=== PATIENT | female | born 2000 | race Caucasian/White ===

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

== ENCOUNTER 2021-01-14 09:00 | Outpatient (CLI) | payer BC, MEDICAID, SELFPAY ==
[2021-01-14] VITALS (7 sets, daily range): BP systolic 116–162; BP diastolic 58–94; PULSE 95–102; RESP 18; TEMP 36.8; BMI 44.6
[2021-01-14 09:34] LABS: Bilirubin Urine Neg (Negative); Blood Urine Neg (Negative); Glucose Urine UA Norm (Normal); Ketones Urine Negative (Negative); Leukocyte Esterase Urine Negative (Negative); Nitrate Urine Negative (Negative); Protein Urine Neg (Negative); Specific Gravity, Urine 1.025 (1.005-1.030); Urine Appearance Clear (CLEAR); Urine Color Yellow (Yellow); Urobilinogen Urine Norm (Negative); pH Urine 5 (5-7)
[2021-01-14 09:44] LABS: Add Urine Culture? No; Bacteria Urine 1+ /hpf; Mucus Urine 1+ /hpf; Squamous Epithelial Cell Urine 15-25 /hpf (0-5)
[2021-01-14 09:49] LABS: Urine Creatinine 141 mg/dL (28-217); Urine Protein Random 12 mg/dL
[2021-01-14 09:50] LABS: UPRO/UCREAT Ratio 0.09 mg/mg CR
[2021-01-14 10:13] LABS: Basophils % 0.1 %; Eosinophils # 0.1 10^3/uL (0.0-0.8); Eosinophils % 0.5 %; Hematocrit 37.3 % (37.0-47.0); Hemoglobin 11.8 g/dL (11.5-15.3); Lymphocytes # 2.6 10^3/uL (1.5-6.5); Lymphocytes % 18.4 %; Mean Corpuscular HGB Conc 31.6 g/dL (30.0-36.0); Mean Corpuscular Hemoglobin 25.7 pg (28.0-34.0); Mean Corpuscular Volume 81.1 fl (81-99); Mean Platelet Volume 11.3 fL (7.4-10.4); Monocytes # 0.8 10^3/uL (0.2-0.9); Monocytes % 5.7 %; Neutrophils # 10.37 10^3/uL (1.8-8.0); Neutrophils % 74.9 %; Nucleated Red Blood Cells % 0 %; Platelet Count 247 10^3/cmm (130-400); Red Cell Distribution Width 14.3 % (12.1-15.1); White Blood Count 13.9 10^3/uL (4.5-13.0)
[2021-01-14 10:47] LABS: Alanine Aminotransferase 23 U/L (0-33); Albumin Level 3.3 g/dL (3.5-5.2); Alkaline Phosphatase 133 IU/L (35-105); Anion Gap 16.7 (5-19); Aspartate Amino Transferase 16 U/L (0-32); Blood Urea Nitrogen 6 mg/dL (6-20); Calcium 8.8 mg/dL (8.5-10.5); Carbon Dioxide 20 mmol/L (22-29); Chloride 103 mmol/L (98-107); Glomerular Filtration Rate 205.6 mL/min (90-130); Glucose 77 mg/dL (65-115); Osmolality Calculated 278 mOsm/kg (285-295); Potassium 3.7 mmol/L (3.5-5.1); Sodium 136 mmol/L (136-145); Total Bilirubin 0.2 mg/dL (0.15-1.2); Total Protein 6.3 g/dL (6.6-8.7)
[2021-01-14] MEDS: betamethasone susp 6 mg/mL 5 mL 12 MG IM (10:59)
== END 2021-01-14 11:15 | disposition home or self-care (01) ==
LOC: OPOB 09:04 → OBGYN 09:05
PROVIDERS: PCP Nurse Practitioner Family; Visit Provider Family Medicine
DX: O16.9 Unspecified maternal hypertension, unspecified trimester (principal)
CPT/HCPCS: 36415; 80053; 81001; 82570; 84156; 84550; 85025; 96372; 99211; J0702

== ENCOUNTER 2021-01-15 10:47 | Outpatient (CLI) | payer BC, MEDICAID, SELFPAY ==
[2021-01-15 11:06] VITALS: BMI 45.1
[2021-01-15 11:16] VITALS: BP 135/88; PULSE 100; RESP 18; TEMP 36.6
[2021-01-15] MEDS: betamethasone susp 6 mg/mL 5 mL 12 MG IM (11:17)
== END 2021-01-15 11:20 | disposition home or self-care (01) ==
LOC: OPOB 10:54 → OBGYN 10:55
PROVIDERS: PCP Nurse Practitioner Family; Visit Provider Family Medicine
DX: O36.0191 Maternal care for anti-D [Rh] antibodies, unspecified trimester, fetus 1 (principal)
CPT/HCPCS: 96372; 99211; J0702

== ENCOUNTER 2021-01-23 23:50 | Outpatient (CLI) | payer BC, MEDICAID, SELFPAY ==
[2021-01-24 00:02] VITALS: BP 136/78; PULSE 121
[2021-01-24 00:20] VITALS: RESP 16
[2021-01-24 00:28] VITALS: BP 136/78; PULSE 121; RESP 16; BMI 45.4
== END 2021-01-24 00:38 | disposition home or self-care (01) ==
LOC: OPOB 23:59 → OBGYN 23:59
PROVIDERS: PCP Nurse Practitioner Family; Visit Provider Family Medicine
DX: O36.8190 Decreased fetal movements, unspecified trimester, not applicable or unspecified (principal); Z3A.00 Weeks of gestation of pregnancy not specified
CPT/HCPCS: 59025; 99211

== ENCOUNTER 2021-02-10 20:59 | Emergency (ER) | payer BC, MEDICAID, SELFPAY ==
[2021-02-10 21:09] VITALS: BP 156/91; PULSE 107; RESP 18; TEMP 36.7; O2SAT 98; BMI 43.9
--- NOTE | 2021-02-10 21:31 | W.ED.WOUNDLC ---
HPI - Wound/Laceration General: Chief Complaint: Wound/Laceration Stated Complaint: deep cut on left arm Time Seen by Provider: 02/10/21 21:16 History of Present Illness: HPI narrative: 20-year-old female reports that she was fixing her bed when they hit the lamp causing it to lose the fall and strike her arm breaking the bulb and cutting her arm. Patient reported cleaning her wound really well. Patient came in for treatment of the wound but refuses sutures. Patient states immunizations are up-to-date. Review of Systems General: Reports: 10 or more systems reviewed and unremarkable except in HPI and below Skin/Breast: Reports: other (Laceration left forearm) [facility] ED PFSH: Social History (Updated 04/05/19 @ 13:13 by Stormy Mac LPN) Smoking and tobacco status: never smoked Alcohol intake: never Female Reproductive History: Para: 0 Physical Exam Const: COMMON NORMALS: no acute distress and patient oriented x3 GENERAL APPEARANCE: cooperative HENMT: COMMON NORMALS: normocephalic HEAD & SCALP: normal to inspection and normocephalic Eye: GENERAL EYE: appearance normal, both eyes and all related structures Neck/C-Spine: COMMON NORMALS: full ROM Chest: COMMONS NORMALS: normal inspection of the chest Resp: COMMON NORMALS: normal respiratory effort EFFORT & INSPECTION: Yes able to speak in complete sentences Cardio: COMMON NORMALS: regular rate and regular rhythm RATE: regular rate RHYTHM: regular rhythm GI: COMMON NORMALS: non-tender Back/Pelvis: COMMON NORMALS: thoracic and lumbar spine normal to inspection Extremity: COMMON NORMALS: normal to inspection Neuro: COMMON NORMALS: patient oriented x3 and moves all extremities Psych: COMMON NORMALS: mental status grossly normal and cooperative Skin: NARRATIVE SKIN EXAM: Left forearm has a 2 cm laceration with gap of 1/2 cm. Procedures Laceration Laceration 1: Site: upper extremity Side (If applicable): left Size (cm): 2 Description: linear Depth: simple, single layer Pre-repair: wound explored and irrigated extensively Size (cm): other (Skin adhesive) Course Vital Signs: Vital signs: Vital Signs Temperature 98.1 F 02/10/21 21:09 Pulse Rate 107 H 02/10/21 21:09 Respiratory Rate 18 02/10/21 21:09 Blood Pressure 156/91 02/10/21 21:09 Pulse Oximetry 98 02/10/21 21:09 MDM - Wound/Laceration MDM Narrative: Medical decision making narrative: Patient comes in for treatment for a laceration to the left forearm. On exam no acute centimeter laceration left forearm. Differential diagnosis includes laceration, foreign body, fracture. No sign of fracture or foreign body is within the wound. I did recommend the patient have a suture to the wound for closure, but patient refused. I went ahead and cleaned the wound and applied 2 Steri-Strips to approximate the wound site and then covered with adhesive for further protection and support. Discussed post procedure care and need for follow-up or return to the ER. Patient reported understanding. Discharge Plan Discharge Patient Disposition: Home Clinical Impression: Laceration of left forearm Qualifiers: Encounter type: initial encounter Qualified Code(s): S51.812A - Laceration without foreign body of left forearm, initial encounter Condition: Stable Prescriptions: No Action 10-400 mg-mcg Capsule 1 cap PO DAILY RF: 0 Discharge Orders: Discharge ED (Routine); Ordered 02/10/21 Ordered By: Ryan Goss Referrals: Nikki Lyon FNP-C [Primary Care Provider] - Discharge Diet: Usual diet Discharge Activity: Increase activity as tolerated Patient Instructions: Skin Adhesive Care (ED) Activity Restrictions/Additional Instructions: Keep wound clean and dry especially for the next 48 hours. After that try not to submerge wound under water for long periods of time. Monitor for signs of infection such as increased redness, heat, and pain. Follow-up with primary care for further instruction. Return to the ER for new concerns. Coding Level of Care Code ED Orchid Superintendent for Isaiah Londono
[2021-02-10 21:47] VITALS: PULSE 82; RESP 18; O2SAT 97
== END 2021-02-10 21:48 | disposition home or self-care (01) ==
PROVIDERS: Emergency Provider Nurse Practitioner Family; PCP Nurse Practitioner Family
DX: S51.812A Laceration without foreign body of left forearm, initial encounter (principal); W25.XXXA Contact with sharp glass, initial encounter
CPT/HCPCS: 12001; 99282

== ENCOUNTER 2021-02-12 09:40 | Outpatient (CLI) | payer BC, MEDICAID, SELFPAY ==
[2021-02-12 09:40] VITALS: BMI 46.3
[2021-02-12 10:05] VITALS: BP 118/79; PULSE 107
[2021-02-12 10:20] VITALS: BP 115/70; PULSE 116
[2021-02-12 10:35] VITALS: BP 125/77; PULSE 114
[2021-02-12 10:50] VITALS: BP 123/77; PULSE 111
[2021-02-12 11:05] VITALS: BP 136/75; PULSE 105
[2021-02-12 11:30] VITALS: BP 136/75; PULSE 105
[2021-02-12 11:48] LABS: Add Urine Microscopic? NO; Charge for UA Resulting for Rev
[2021-02-12 11:52] LABS: Basophils % 0.3 %; Eosinophils # 0.1 10^3/uL (0.0-0.8); Eosinophils % 0.6 %; Hematocrit 38.8 % (37.0-47.0); Hemoglobin 11.9 g/dL (11.5-15.3); Lymphocytes # 1.7 10^3/uL (1.5-6.5); Lymphocytes % 14.2 %; Mean Corpuscular HGB Conc 30.7 g/dL (30.0-36.0); Mean Corpuscular Hemoglobin 24.5 pg (28.0-34.0); Mean Platelet Volume 11.6 fL (7.4-10.4); Monocytes # 0.7 10^3/uL (0.2-0.9); Monocytes % 5.6 %; Neutrophils # 9.14 10^3/uL (1.8-8.0); Neutrophils % 78.4 %; Nucleated Red Blood Cells % 0 %; Platelet Count 292 10^3/cmm (130-400); Red Blood Count 4.85 10^6/uL (4.1-5.3); Red Cell Distribution Width 14.2 % (12.1-15.1); White Blood Count 11.7 10^3/uL (4.5-13.0)
[2021-02-12 12:05] LABS: Bilirubin Urine Neg (Negative); Blood Urine Neg (Negative); Glucose Urine UA Norm (Normal); Ketones Urine Negative (Negative); Nitrate Urine Negative (Negative); Protein Urine Neg (Negative); Urine Appearance Clear (CLEAR); Urine Color Straw (Yellow); pH Urine 5 (5-7)
[2021-02-12 12:06] LABS: Leukocyte Esterase Urine Negative (Negative); Urobilinogen Urine Norm (Negative)
[2021-02-12 12:36] LABS: Alanine Aminotransferase 13 U/L (0-33); Albumin Level 2.7 g/dL (3.5-5.2); Alkaline Phosphatase 169 IU/L (35-105); Anion Gap 12.9 (5-19); Aspartate Amino Transferase 11 U/L (0-32); Blood Urea Nitrogen 6 mg/dL (6-20); Carbon Dioxide 22 mmol/L (22-29); Chloride 104 mmol/L (98-107); Globulin 3.2 g/dL (1.3-4.6); Glomerular Filtration Rate 205.6 mL/min (90-130); Glucose 92 mg/dL (65-115); Osmolality Calculated 277 mOsm/kg (285-295); Potassium 3.9 mmol/L (3.5-5.1); Sodium 135 mmol/L (136-145); Total Bilirubin 0.2 mg/dL (0.15-1.2); Total Protein 5.9 g/dL (6.6-8.7); Uric Acid 3.3 mg/dL (2.4-5.7)
[2021-02-12 12:43] LABS: Urine Creatinine 73 mg/dL (28-217); Urine Protein Random 8 mg/dL
[2021-02-12 12:44] LABS: UPRO/UCREAT Ratio 0.11 mg/mg CR
== END 2021-02-12 11:30 | disposition home or self-care (01) ==
LOC: OPOB 09:50 → OBGYN 09:51
PROVIDERS: PCP Nurse Practitioner Family; Visit Provider Family Medicine
DX: R51.9 Headache, unspecified (principal); M54.9 Dorsalgia, unspecified; O99.891 Other specified diseases and conditions complicating pregnancy
CPT/HCPCS: 36415; 59025; 80053; 81003; 82570; 84156; 84550; 85025; 99211

== ENCOUNTER 2021-02-16 11:45 | Outpatient (CLI) | payer BC, MEDICAID, SELFPAY ==
[2021-02-16 11:45] VITALS: BMI 41.8
[2021-02-16 12:01] VITALS: BP 141/70; PULSE 112
[2021-02-16 12:11] VITALS: BP 139/67; PULSE 117
[2021-02-16 12:21] VITALS: BP 128/65; PULSE 122
[2021-02-16 12:31] VITALS: BP 116/66; PULSE 115
[2021-02-16 12:41] VITALS: BP 123/64; PULSE 113
[2021-02-16 12:51] VITALS: BP 123/68; PULSE 116
== END 2021-02-16 12:53 | disposition home or self-care (01) ==
LOC: OPOB 11:50 → OBGYN 11:51
PROVIDERS: PCP Nurse Practitioner Family; Visit Provider Family Medicine
DX: O16.9 Unspecified maternal hypertension, unspecified trimester (principal); Z3A.00 Weeks of gestation of pregnancy not specified
CPT/HCPCS: 59025; 99211

== ENCOUNTER 2021-02-19 16:23 | Outpatient (CLI) | payer BC, MEDICAID, SELFPAY ==
[2021-02-19 16:32] VITALS: BP 145/89; PULSE 101
[2021-02-19 16:40] VITALS: BMI 47.0
[2021-02-19 16:47] VITALS: BP 133/83; PULSE 110
[2021-02-19 17:01] VITALS: BP 136/83; PULSE 108
== END 2021-02-19 17:12 | disposition home or self-care (01) ==
LOC: OPOB 16:28 → OBGYN 16:29
PROVIDERS: PCP Nurse Practitioner Family; Visit Provider Family Medicine
DX: O16.9 Unspecified maternal hypertension, unspecified trimester (principal); Z3A.00 Weeks of gestation of pregnancy not specified
CPT/HCPCS: 59025

== ENCOUNTER 2021-02-23 15:54 | Outpatient (CLI) | payer BC, MEDICAID, SELFPAY ==
[2021-02-23 16:00] VITALS: BMI 46.8
[2021-02-23 16:15] VITALS: BP 129/71; PULSE 94; RESP 16; O2SAT 99
[2021-02-23 16:19] VITALS: TEMP 36.1
[2021-02-23 16:35] VITALS: BP 134/93; PULSE 99; RESP 16; O2SAT 99
--- NOTE | 2021-02-23 16:57 | PC.NURSE ---
Patient reports she is taking a blood pressure pill that starts with an N. Patient advised to bring bottle to next NST appt.
== END 2021-02-23 16:50 | disposition home or self-care (01) ==
LOC: OPOB 16:02 → OBGYN 16:09
PROVIDERS: PCP Nurse Practitioner Family; Visit Provider Family Medicine
DX: O16.9 Unspecified maternal hypertension, unspecified trimester (principal); Z3A.00 Weeks of gestation of pregnancy not specified
CPT/HCPCS: 59025

== ENCOUNTER 2021-02-26 16:30 | Outpatient (CLI) | payer BC, MEDICAID, SELFPAY ==
[2021-02-26 16:40] VITALS: BP 145/71; PULSE 101; TEMP 36.3
[2021-02-26 16:45] VITALS: RESP 18; BMI 46.8
[2021-02-26 16:55] VITALS: BP 136/64; PULSE 100
== END 2021-02-26 17:05 | disposition home or self-care (01) ==
LOC: OPOB 16:31 → OBGYN 16:34
PROVIDERS: PCP Nurse Practitioner Family; Visit Provider Family Medicine
DX: O16.9 Unspecified maternal hypertension, unspecified trimester (principal); Z3A.00 Weeks of gestation of pregnancy not specified
CPT/HCPCS: 59025; 99211

== ENCOUNTER 2021-03-02 12:10 | Outpatient (CLI) | payer BC, MEDICAID, SELFPAY ==
[2021-03-02 12:15] VITALS: BMI 47.3
[2021-03-02 12:21] VITALS: BP 113/56; PULSE 122; TEMP 35.8
[2021-03-02 12:25] VITALS: RESP 18
[2021-03-02 12:42] VITALS: BP 122/56; PULSE 117
[2021-03-02 13:01] VITALS: BP 131/66; PULSE 115
[2021-03-02 13:21] VITALS: BP 118/69; PULSE 116
== END 2021-03-02 13:30 | disposition home or self-care (01) ==
LOC: OPOB 12:12 → OBGYN 12:14
PROVIDERS: PCP Nurse Practitioner Family; Visit Provider Family Medicine
DX: O16.9 Unspecified maternal hypertension, unspecified trimester (principal); Z3A.00 Weeks of gestation of pregnancy not specified
CPT/HCPCS: 59025; 99211

== ENCOUNTER 2021-03-04 11:02 | Outpatient (CLI) | payer BC, MEDICAID, SELFPAY ==
[2021-03-04 11:10] VITALS: BMI 47.7
[2021-03-04 11:24] VITALS: BP 123/72; PULSE 56
[2021-03-04 11:33] VITALS: RESP 18; TEMP 36.3
[2021-03-04 11:39] LABS: Nitrazine Paper, PH Negative
[2021-03-04 11:43] LABS: Actim Prom Negative
[2021-03-04 12:05] VITALS: BP 123/72; PULSE 56
== END 2021-03-04 12:05 | disposition home or self-care (01) ==
LOC: OPOB 11:04 → OBGYN 11:14
PROVIDERS: Family Medicine; PCP Nurse Practitioner Family; Visit Provider Family Medicine
DX: O26.899 Other specified pregnancy related conditions, unspecified trimester (principal); Z3A.00 Weeks of gestation of pregnancy not specified; R10.2 Pelvic and perineal pain; N89.8 Other specified noninflammatory disorders of vagina
CPT/HCPCS: 59025; 83986; 84112; 99211

== ENCOUNTER 2021-03-09 07:20 | Outpatient (CLI) | payer BC, MEDICAID, SELFPAY ==
[2021-03-05 13:47] VITALS: RESP 16; TEMP 36.5
[2021-03-09 07:30] VITALS: BP 149/65; PULSE 112
[2021-03-09 07:46] VITALS: BP 143/90; PULSE 95
[2021-03-09 08:10] VITALS: BP 143/90; PULSE 95
== END 2021-03-09 08:12 | disposition home or self-care (01) ==
LOC: OPOB 07:24 → OBGYN 07:26
PROVIDERS: PCP Nurse Practitioner Family; Visit Provider Family Medicine
DX: O26.899 Other specified pregnancy related conditions, unspecified trimester (principal); Z3A.00 Weeks of gestation of pregnancy not specified
CPT/HCPCS: 59025; 99211

== ENCOUNTER 2021-03-12 18:20 | Outpatient (CLI) | payer BC, MEDICAID, SELFPAY ==
[2021-03-12] VITALS (7 sets, daily range): BP systolic 127–140; BP diastolic 62–82; PULSE 85–98; RESP 18; BMI 48.5
== END 2021-03-12 19:55 | disposition home or self-care (01) ==
LOC: OPOB 18:23 → OBGYN 18:24
PROVIDERS: PCP Nurse Practitioner Family; Visit Provider Family Medicine
DX: O16.9 Unspecified maternal hypertension, unspecified trimester (principal); Z3A.00 Weeks of gestation of pregnancy not specified
CPT/HCPCS: 59025; 99211

== ENCOUNTER 2021-03-15 16:41 | Outpatient (CLI) | payer BC, MEDICAID, SELFPAY ==
[2021-03-15 17:02] VITALS: BP 142/98; PULSE 101
[2021-03-15 17:17] VITALS: BP 130/75; PULSE 105
[2021-03-15 17:22] VITALS: BMI 48.4
[2021-03-15 17:32] VITALS: BP 120/69; PULSE 115
== END 2021-03-15 17:42 | disposition home or self-care (01) ==
LOC: OPOB 16:42 → OBGYN 16:42
PROVIDERS: PCP Nurse Practitioner Family; Visit Provider Family Medicine
DX: O16.9 Unspecified maternal hypertension, unspecified trimester (principal); Z3A.00 Weeks of gestation of pregnancy not specified; N89.8 Other specified noninflammatory disorders of vagina
CPT/HCPCS: 59025; 83986; 99211

== ENCOUNTER 2021-03-17 11:00 | Outpatient (CLI) | payer BC, MEDICAID, SELFPAY ==
[2021-03-17] VITALS (13 sets, daily range): BP systolic 117–159; BP diastolic 77–96; PULSE 105–131; RESP 16; BMI 48.9
[2021-03-17 12:27] LABS: Basophils % 0.2 %; Eosinophils # 0.1 10^3/uL (0.0-0.8); Eosinophils % 0.7 %; Hematocrit 36.9 % (37.0-47.0); Hemoglobin 11.8 g/dL (11.5-15.3); Lymphocytes # 1.8 10^3/uL (1.5-6.5); Lymphocytes % 14.5 %; Mean Corpuscular Hemoglobin 24.4 pg (28.0-34.0); Mean Corpuscular Volume 76.2 fl (81-99); Mean Platelet Volume 11.9 fL (7.4-10.4); Monocytes # 0.6 10^3/uL (0.2-0.9); Monocytes % 4.5 %; Neutrophils # 9.73 10^3/uL (1.8-8.0); Neutrophils % 79.4 %; Nucleated Red Blood Cells % 0 %; Platelet Count 270 10^3/cmm (130-400); Red Blood Count 4.84 10^6/uL (4.1-5.3); Red Cell Distribution Width 15.4 % (12.1-15.1); White Blood Count 12.2 10^3/uL (4.5-13.0)
[2021-03-17 12:42] LABS: Alanine Aminotransferase 12 U/L (0-33); Albumin Level 2.8 g/dL (3.5-5.2); Alkaline Phosphatase 178 IU/L (35-105); Aspartate Amino Transferase 12 U/L (0-32); Blood Urea Nitrogen 6 mg/dL (6-20); Calcium 9.2 mg/dL (8.5-10.5); Carbon Dioxide 17 mmol/L (22-29); Chloride 105 mmol/L (98-107); Glomerular Filtration Rate 158.9 mL/min (90-130); Glucose 105 mg/dL (65-115); Osmolality Calculated 280 mOsm/kg (285-295); Sodium 136 mmol/L (136-145); Total Bilirubin 0.2 mg/dL (0.15-1.2); Total Protein 5.8 g/dL (6.6-8.7)
[2021-03-17 13:48] LABS: Urine Creatinine 284 mg/dL (28-217)
[2021-03-17 13:49] LABS: UPRO/UCREAT Ratio 0.19 mg/mg CR; Urine Protein Random 54 mg/dL
[2021-03-17 14:29] LABS: Uric Acid 4.9 mg/dL (2.4-5.7)
[2021-03-17] MEDS: NIFEdipine ER (24 hr) 30 mg Tablet PO (14:30)
[2021-03-17 14:59] LABS: Add Urine Culture? No; Amorphous Sediment Urine 2+ /hpf; Bacteria Urine 4+ /hpf; Bilirubin Urine 1+ (Negative); Blood Urine Neg (Negative); Calcium Oxalate Crystals Urine 15-25 /hpf; Glucose Urine UA Norm (Normal); Ketones Urine Negative (Negative); Leukocyte Esterase Urine Negative (Negative); Nitrate Urine Negative (Negative); Protein Urine Trace (Negative); RBC Urine 0-4 /hpf (0-2); Squamous Epithelial Cell Urine 55-80 /hpf (0-5); Urine Appearance Cloudy (CLEAR); Urine Color Yellow (Yellow); Urobilinogen Urine Norm (Negative); pH Urine 5 (5-7)
== END 2021-03-17 14:35 | disposition home or self-care (01) ==
LOC: OPOB 11:07 → OBGYN 11:08
PROVIDERS: PCP Nurse Practitioner Family; Visit Provider Family Medicine
DX: O16.9 Unspecified maternal hypertension, unspecified trimester (principal); Z3A.00 Weeks of gestation of pregnancy not specified
CPT/HCPCS: 36415; 59025; 80053; 81001; 82570; 84156; 84550; 85025; 99211

== ENCOUNTER 2021-03-19 13:12 | Outpatient (CLI) | payer BC, MEDICAID, SELFPAY ==
[2021-03-19 13:21] VITALS: BP 145/86; PULSE 131
[2021-03-19 13:22] VITALS: TEMP 36.3
[2021-03-19 13:24] VITALS: BMI 48.9
[2021-03-19 13:38] VITALS: BP 159/93; PULSE 122
[2021-03-19 13:45] VITALS: PULSE 116
== END 2021-03-19 13:55 | disposition home or self-care (01) ==
LOC: OPOB 13:13 → OBGYN 13:13
PROVIDERS: PCP Nurse Practitioner Family; Visit Provider Family Medicine
DX: O24.419 Gestational diabetes mellitus in pregnancy, unspecified control (principal); Z3A.00 Weeks of gestation of pregnancy not specified
CPT/HCPCS: 59025

== ENCOUNTER 2021-03-23 07:10 | Outpatient (CLI) | payer BC, MEDICAID, SELFPAY ==
[2021-03-23 07:26] VITALS: BP 135/66; PULSE 110; TEMP 36.1
[2021-03-23 07:27] VITALS: BMI 49.2
[2021-03-23 07:44] VITALS: BP 160/98; PULSE 139
[2021-03-23 07:59] VITALS: BP 158/78; PULSE 130
[2021-03-23 08:53] VITALS: BMI 49.2
== END 2021-03-23 08:53 | disposition home or self-care (01) ==
LOC: OPOB 07:18 → OBGYN 07:20
PROVIDERS: PCP Nurse Practitioner Family; Visit Provider Family Medicine
DX: O16.9 Unspecified maternal hypertension, unspecified trimester (principal); Z3A.00 Weeks of gestation of pregnancy not specified
CPT/HCPCS: 59025; 99211

== ENCOUNTER 2021-03-24 04:54 | Inpatient (IN) | payer BC, MEDICAID, SELFPAY ==
[2021-03-23] VITALS (17 sets, daily range): BP systolic 121–153; BP diastolic 57–87; PULSE 86–116; TEMP 36.6; O2SAT 98; BMI 48.7
[2021-03-23 22:31] LABS: Basophils % 0.2 %; Eosinophils % 0.3 %; Hematocrit 39.4 % (37.0-47.0); Hemoglobin 12.1 g/dL (11.5-15.3); Lymphocytes % 15.9 %; Mean Corpuscular HGB Conc 30.7 g/dL (30.0-36.0); Mean Platelet Volume 11.7 fL (7.4-10.4); Monocytes # 0.6 10^3/uL (0.2-0.9); Monocytes % 4.9 %; Neutrophils # 10.07 10^3/uL (1.8-8.0); Neutrophils % 78.4 %; Nucleated Red Blood Cells % 0 %; Platelet Count 294 10^3/cmm (130-400); Red Blood Count 5.05 10^6/uL (4.1-5.3); White Blood Count 12.9 10^3/uL (4.5-13.0)
[2021-03-23 22:41] LABS: Add Urine Culture? No; Add Urine Microscopic? YES; Bacteria Urine 3+ /hpf; Bilirubin Urine Neg (Negative); Blood Urine Neg (Negative); Glucose Urine UA Norm (Normal); Ketones Urine Negative (Negative); Leukocyte Esterase Urine Negative (Negative); Mucus Urine 1+ /hpf; Nitrate Urine Negative (Negative); Protein Urine Trace (Negative); RBC Urine 0-4 /hpf (0-2); Urine Appearance Clear (CLEAR); Urine Color Yellow (Yellow); Urobilinogen Urine Norm (Negative); pH Urine 5 (5-7)
[2021-03-23 22:58] LABS: UPRO/UCREAT Ratio 0.18 mg/mg CR; Urine Creatinine 250 mg/dL (28-217); Urine Protein Random 44 mg/dL
[2021-03-23 23:10] LABS: Alanine Aminotransferase < 5 U/L (0-33); Albumin Level 2.8 g/dL (3.5-5.2); Alkaline Phosphatase 194 IU/L (35-105); Anion Gap 18.1 (5-19); Aspartate Amino Transferase 13 U/L (0-32); Blood Urea Nitrogen 9 mg/dL (6-20); Calcium 7.9 mg/dL (8.5-10.5); Carbon Dioxide 16 mmol/L (22-29); Chloride 106 mmol/L (98-107); Globulin 3.1 g/dL (1.3-4.6); Glomerular Filtration Rate 107.8 mL/min (90-130); Glucose 108 mg/dL (65-115); Osmolality Calculated 281 mOsm/kg (285-295); Potassium 4.1 mmol/L (3.5-5.1); Sodium 136 mmol/L (136-145); Total Bilirubin 0.2 mg/dL (0.15-1.2); Total Protein 5.9 g/dL (6.6-8.7); Uric Acid 6.3 mg/dL (2.4-5.7)
[2021-03-24] VITALS (46 sets, daily range): BP systolic 110–153; BP diastolic 55–88; PULSE 81–112; RESP 16
[2021-03-24] MEDS: miSOPROStol 100 mcg tablet 25 MCG VAGINAL ×4 (00:36→15:48)
[2021-03-24] MEDS: dextrose 5%-lactated ringers 1,000 ML 125 ML IV ×2 (06:35→22:31)
--- NOTE | 2021-03-24 18:22 | PM.OPHPUD ---
Labor & Delivery H&P Update Date of Procedure: March 24, 2021 Date H&P Performed: 03/24/21 H&P update information: I have reviewed H&P completed within last 30 days Admission Diagnosis: Other information: This is a 20-year-old at 37 weeks 1 day gestation who was admitted last evening for induction secondary to severe -induced hypertension. I suspect the patient has underlying chronic hypertension as she had at least one borderline blood pressure prior to 20 weeks gestation. Her blood pressure started increasing around 28 weeks gestation. She did a 24-hour urine and PIH labs which ruled out preeclampsia. At first her BPs were mildly elevated and just monitored. When they became more severe, 150/110, she was started on Procardia XL 30mg. At that time of course PIH labs were repeated. The patient received monthly growth and fluid ultrasounds. Her most recent u/s at 33 w showed DIONY 21, EFW 62.9%. At 32 weeks gestation she began twice weekly NSTs. Of note, the pt had a random severe BP 180/100 on 01/14 that resolved spontaneously with rest. She had reported to L&D for en elevated at-home BP of 149/120. She received a course of BMZ x 2 at that time. Urine pro/Cr ratio was 0.9. At 36 weeks gestation she had a blood pressure of 180/120 in clinic and was sent to Labor and delivery for repeat BP and PIH labs. Pt had been monitoring her BP at home and when asked what they were running at home she said the same , yet she had not notified us. Pro/Cr ratio was 0.18. At the hospital her BP was not nearly as elevated but decision was made to increase the Procardia and place her on bedrest. Obviously, with activity her BP spikes much higher. At no time did she have scotomata or significant WETZEL. At 37 weeks 0 days gestation the patient was receiving routine NST and it was noted that her blood pressures were right at the severe range (despite 90mg of procardia and bedrest) 160/58, several 159 systolics, so decision was made to induce. Related Problem List Diagnoses (1) induced hypertension, antepartum: severe. on BP medication. early term now so will induce. (2) with 37 weeks completed gestation:
--- NOTE | 2021-03-24 18:39 | PM.OBGYPN ---
INSULATION ENGINEMAN Subjective Labor: Station: -3 Amniotic Membrane Status: Intact Monitor Mode: External Contraction Pattern: Absent Status: Category I Vitals/I&O/Wt Last Vital Signs Temp 97.8 F 03/23/21 19:35 Pulse 87 03/24/21 17:48 BP 133/78 03/24/21 17:48 Pulse Ox 98 03/23/21 23:35 Weight last 48 hrs Weight 128.82 kg Physical Exam Narrative: EXAM NARRATIVE: Pt seen at 1245. Resting comfortably in bed no acute distress, abdomen is nontender. Data : 03/23/21 22:15 03/23/21 22:43 A&P Assessment and plan (1) with 37 weeks completed gestation: The patients cervix was not favorable for induction. She has now had 3 doses of Cytotec and her cervix was 1 cm but still very firm and thick. She will receive a fourth dose of Cytotec. heart tones have been reassuring, reactive and category 1. Status: Acute (2) induced hypertension, antepartum: Surprisingly the patient's blood pressures have been pretty good since admission. Earlier yesterday she had severely elevated blood pressure on Procardia 90 mg and bedrest. We have hypertensive protocol in place but she has not required any medication yet. Status: Acute Attestations Medical Necessity Statement*: Induction and expectant management due to severe -induced hypertension Coding Level of Care Code Acute Adjunct Communications Faculty Member for g Fwd Diagnoses with 37 weeks completed gestation Z3A.37 induced hypertension, antepartum O13.9
[2021-03-24] MEDS: oxytocin 30 UNIT/500 ML BAG IV (22:13)
[2021-03-25] VITALS (128 sets, daily range): BP systolic 107–181; BP diastolic 51–132; PULSE 71–151; RESP 16–18; TEMP 36.6–37; O2SAT 81–100
[2021-03-25] MEDS: dextrose 5%-lactated ringers 1,000 ML 108 ML IV (04:38)
[2021-03-25] MEDS: acetaminophen 325 mg Tablet 650 MG PO (07:12)
[2021-03-25] MEDS: lactated ringers 1,000 ML 999 ML IV ×2 (09:00→10:07)
[2021-03-25] MEDS: fentaNYL 50 mcg/mL INJ 2mL IVP (09:04)
--- NOTE | 2021-03-25 10:24 | P.ANESASSM_ITS ---
Pre-Anesthetic Assessment Pre-Anesthetic Assessment: Height/Weight: Height 1.63 m Weight 128.82 kg Temp Pulse Resp BP Pulse Ox 97.8 F 102 H 18 112/56 98 03/23/21 19:35 03/25/21 10:22 03/25/21 09:04 03/25/21 10:22 03/25/21 10:17 Was Beta Mishel taken within 24 hours: N/A Was Clonidine taken within 24 hours: N/A Social: Social History: No alcohol and No tobacco Exam: Pre-Anes Outpt Exam: alert, oriented x 3, clear to auscultation bilaterally and regular rate & rhythm Airway: Submandibular: WNL Cervical ROM: WNL MP: 2 Dentition: Full History/ROS: No significant history except as noted Metabolic: Metabolic: Morbid obesity Anesthetic Plan: ASA status: 2 Anesthesia: Regional (specify below) (Labor epidural) Risk of > 500 ml blood loss (7ml/kg in children): No Medications/Allergies Current Medications: Current Medications Generic Name Dose Route Start Last Admin Trade Name Freq PRN Reason Stop Dose Admin Acetaminophen 650 mg 03/23/21 23:09 03/25/21 07:12 Acetaminophen 32 5 Mg Tablet PO 650 mg Q6H PRN Administration MILD TO MODERATE PAIN Fentanyl 25 - 100 mcg 03/24/21 21:17 03/25/21 09:04 Fentanyl 50 Mcg/ Ml Inj 2ml IVP 25 mcg Q1H PRN Administration SEVERE PAIN Dextrose/Lactated Ringer's 1,000 mls @ 125 m ls/hr 03/23/21 23:15 03/25/21 09:12 Dextrose 5%-Lact ated Ringers IV 0 mls/hr .Q8H ROXANN Infusion Dextrose/Lactated Ringer's 1,000 mls @ 125 m ls/hr 03/23/21 23:09 03/25/21 06:01 Dextrose 5%-Lact ated Ringers IV 105 mls/hr .Q8H PRN Infusion per label comment s Oxytocin 30 unit in 500 ml s @ 1 mls/hr 03/24/21 21:15 03/25/21 06:01 Pitocin IV 20 milliunit/min .Q24H ROXANN 20 mls/hr Titration Protocol 1 MILLIUNIT/MIN Ropivacaine 200 mg in 100 mls @ 13 mls/hr 03/25/21 09:15 03/25/21 10:05 Naropin Premix EPIDURAL 13 mls/hr .Q7H42M ROXANN Administration Lactated Ringer's 1,000 mls @ 999 m ls/hr 03/25/21 09:13 03/25/21 10:07 Lactated Ringers IV 999 mls/hr .Q1H1M PRN Administration See label comment s PFSH Anesthesia PFSH: Social History (Updated 04/05/19 @ 13:13 by Stormy Mac LPN) Smoking and tobacco status: never smoked Alcohol intake: never Female Reproductive History: Date of last menstrual period: 06/05/20 : 1 Para: 0 Data Anesthesia CBC & Chem 7: 03/23/21 22:15 03/23/21 22:43 Other Labs: Laboratory Results - last 48 hr 03/23/21 03/23/21 03/23/21 19:00 19:00 22:15 WBC 12.9 RBC 5.05 Hgb 12.1 Hct 39.4 MCV 78.0 L MCH 24.0 L MCHC 30.7 RDW 16.0 H Plt Count 294 MPV 11.7 H Neut % (Auto) 78.4 Lymph % (Auto) 15.9 [place] % (Auto) 4.9 Eos % (Auto) 0.3 Baso % (Auto) 0.2 Neut # (Auto) 10.07 H Lymph # (Auto) 2.0 [place] # (Auto) 0.6 Eos # (Auto) 0.0 Baso # (Auto) 0.0 Nucleated RBC % (auto) 0 Nucleated RBCs # 0.0 Sodium Potassium Chloride Carbon Dioxide Anion Gap BUN Creatinine GFR Calculation Glucose Calculated Osmolality Uric Acid Calcium Total Bilirubin AST ALT Alkaline Phosphatase Total Protein Albumin Globulin Urine Color Yellow Urine Appearance Clear Urine pH 5 Ur Specific [place] 1.030 Urine Protein Trace Urine Glucose (UA) Norm Urine Ketones Negative Urine Blood Neg Urine Nitrate Negative Urine Bilirubin Neg Urine Urobilinogen Norm Ur Leukocyte Esterase Negative Urine RBC 0-4 H Urine WBC 5-10 H Ur Squamous Epith Cells 10-15 H Amorphous Sediment Not Reportable Urine Bacteria 3+ H Urine Mucus 1+ U Random Total Protein 44 Urine Creatinine 250 H Protein/Creatinin Ratio 0.18 03/23/21 03/23/21 22:15 22:43 WBC RBC Hgb Hct MCV MCH MCHC RDW Plt Count MPV Neut % (Auto) Lymph % (Auto) [place] % (Auto) Eos % (Auto) Baso % (Auto) Neut # (Auto) Lymph # (Auto) [place] # (Auto) Eos # (Auto) Baso # (Auto) Nucleated RBC % (auto) Nucleated RBCs # Sodium Cancelled 136 Potassium Cancelled 4.1 Chloride Cancelled 106 Carbon Dioxide Cancelled 16 L Anion Gap Cancelled 18.1 BUN Cancelled 9 Creatinine Cancelled 0.7 GFR Calculation Cancelled 107.8 Glucose Cancelled 108 Calculated Osmolality Cancelled 281 L Uric Acid Cancelled 6.3 H Calcium Cancelled 7.9 L Total Bilirubin Cancelled 0.2 AST Cancelled 13 ALT Cancelled < 5 Alkaline Phosphatase Cancelled 194 H Total Protein Cancelled 5.9 L Albumin Cancelled 2.8 L Globulin Cancelled 3.1 Urine Color Urine Appearance Urine pH Ur Specific [place] Urine Protein Urine Glucose (UA) Urine Ketones Urine Blood Urine Nitrate Urine Bilirubin Urine Urobilinogen Ur Leukocyte Esterase Urine RBC Urine WBC Ur Squamous Epith Cells Amorphous Sediment Urine Bacteria Urine Mucus U Random Total Protein Urine Creatinine Protein/Creatinin Ratio Cardiac Studies: No Data to Display
--- NOTE | 2021-03-25 10:28 | ANES.PROC ---
Anesthesia Procedures Procedure/Date: 03/25/21 Epidural: Time Out Performed: Yes Consents Signed: Procedure Consent Consent: requested by attending/covering physician, from patient, risks and benefits reviewed and patient agrees to proceed Lumbar Level: L3-L4 Epidural position: sitting Epidural procedure: sterile prep of area, 1% lidocaine to numb the area, 18 g needle, neg for paresthesia, test dose given, 1.5% xylocaine 1:200k epi, placed PCEA, no systemic response, sterile dressing applied and 0.2% Ropiavacaine @ mls/hr (13) Additional Comments: Had to pass epidural needle twice to complete, using Arrow kit initially catheter would not pass b/c tiny portion of tip of needle burred up and would not allow catheter to pass; second pass with Mas kit passed easily but had positive test dose until catheter withdrawn to 10cm at which test dose negative--KALYANI at 7cm.
--- NOTE | 2021-03-25 12:05 | ANES.PROC ---
Anesthesia Procedures Procedure/Date: 03/25/21 Epidural: Time Out Performed: Yes Consents Signed: Procedure Consent Consent: requested by attending/covering physician, from patient, risks and benefits reviewed and patient agrees to proceed Lumbar Level: L3-L4 Epidural position: sitting Epidural procedure: sterile prep of area, 1% lidocaine to numb the area, 18 g needle, neg for paresthesia, test dose given, 1.5% xylocaine 1:200k epi, placed PCEA, no systemic response, sterile dressing applied and 0.2% Ropiavacaine @ mls/hr (13) Additional Comments: Epidural replaced, previous epidural likely migrated out--it was only 3cm past KALYANI.
--- NOTE | 2021-03-25 13:44 | P.PCNOB_ITS ---
Delivery Note: Date of delivery: March 25, 2021 Delivery: This is a 20-year-old G1 now P1 at 37 weeks 2 days gestation who was admitted for induction secondary to severe -induced hypertension. The patient's cervix was not favorable and she received Cytotec doses x4. Her cervix was only 1cm and 50% effaced after those doses. She was then started on Pitocin. Once her Pitocin was titrated up her active labor progressed rather quickly. She had spontaneous rupture of membranes with clear fluid. scalp electrode was placed to better monitor the FHT. She received an epidural for pain management and the first 1 became dislodged so she required a second epidural. Shortly thereafter she was complete and +3. She only had to push for about 3 contractions and had a normal spontaneous vaginal delivery of a viable female weight 2845 g, 6 pounds 4 ounces over an intact perineum. The was suctioned at delivery and placed on the mother's chest. Apgars 9 and 9 . the cord was clamped and cut. The placenta was delivered grossly intact and normal to inspection. There was a right vaginal first-degree laceration that was sutured using 3-0 chromic. Mother and were doing well after delivery. Rupture of membranes was approximately 4-1/2 hours prior to delivery. Mother was GBS negative. Overall her active labor was approximately 6 hours long. A&P Assessment and plan (1) with 37 weeks completed gestation: Routine care Status: Acute (2) induced hypertension, antepartum: Continue to monitor closely and assess the need for treatment. Status: Acute Coding Level of Care Code Acute Counselor Dormitory for Chg Fwd Diagnoses with 37 weeks completed gestation Z3A.37 induced hypertension, antepartum O13.9
[2021-03-25] MEDS: oxytocin 30 UNIT/500 ML BAG 600 UNIT IV (13:59)
[2021-03-25] MEDS: benzocaine-menthol 78 gm Canister 1 SPRAY TOPICAL (16:07)
[2021-03-25] MEDS: ibuprofen 800 mg tablet PO ×2 (16:07→21:20)
[2021-03-25] MEDS: lanolin oint 7 gm 1 APPLIC TOPICAL (16:07)
[2021-03-25] MEDS: docusate sodium 100 mg Capsule PO (21:21)
[2021-03-26 02:37] LABS: Hematocrit 32.3 % (37.0-47.0); Mean Corpuscular Hemoglobin 24.1 pg (28.0-34.0); Mean Corpuscular Volume 77.8 fl (81-99); Mean Platelet Volume 12.1 fL (7.4-10.4); Platelet Count 234 10^3/cmm (130-400); Red Blood Count 4.15 10^6/uL (4.1-5.3); Red Cell Distribution Width 16.3 % (12.1-15.1); White Blood Count 12.2 10^3/uL (4.5-13.0)
[2021-03-26 05:05] VITALS: BP 117/60; PULSE 81
[2021-03-26 07:28] VITALS: BP 136/83; PULSE 86
[2021-03-26] MEDS: prenatal vitamin Capsule 1 CAP PO (10:09)
[2021-03-26] MEDS: docusate sodium 100 mg Capsule PO (10:09)
[2021-03-26] MEDS: ibuprofen 800 mg tablet PO (10:09)
--- NOTE | 2021-03-26 12:43 | P.DS_ITS ---
Discharge Providers CHARGE MASTER ANALYST Date of Admission: 03/24/21 04:54 Date of Discharge: 03/26/21 Attending Provider at Admission: Trudy Shay MD Attending Provider at Discharge: Trudy Shay MD Primary Care Provider: TAMARA Saleem Diagnoses at Discharge Discharge Diagnosis (1) induced hypertension, antepartum: Status: Acute (2) with 37 weeks completed gestation: Status: Acute Reason for Visit Reason for Visit: Induction Hospital Course Hospital Course This is a 20-year-old G1 now P1 who was admitted for induction at 37 weeks gestation secondary to severe -induced hypertension likely superimposed on chronic hypertension. She had a normal spontaneous vaginal delivery of a viable female infant. she has done well. Her bleeding sounds about average. She has been diuresing well. She was ambulating and tolerating a regular diet. Information Peripartum Data: Delivery Method: Vaginal Physical Exam Narrative: EXAM NARRATIVE: Alert and oriented, sitting in bedside chair, heart regular rate and rhythm, lungs clear to auscultation bilaterally, abdomen soft and nontender, fundus is firm, 2-3+ lower extremity edema with no calf tenderness. Her blood pressures after delivery have been 120-130's and she has not required antihypertensives. Urinary Catheter Management^: Avilez Latex: Cath Placed During This Visit: yes Urinary Catheter Date of Insertion: 03/25/21 Urinary Catheter Time of Insertion: 10:00 Discharge Data Data Completed and Pending: Labs from last 24 hours 03/26/21 02:04 WBC 12.2 RBC 4.15 Hgb 10.0 L Hct 32.3 L MCV 77.8 L MCH 24.1 L MCHC 31.0 RDW 16.3 H Plt Count 234 MPV 12.1 H Vitals: Last Vital Signs Temp 98.5 F 03/25/21 12:00 Pulse 86 03/26/21 07:28 Resp 16 03/25/21 14:08 BP 136/83 03/26/21 07:28 Pulse Ox 100 03/25/21 13:02 Discharge Plan Discharge Patient Disposition: Home Condition: Stable Prescriptions: Continued 10-400 mg-mcg Capsule 1 cap PO DAILY RF: 0 Discontinued nifedipine [Nifedical XL] 60 mg Tablet Extended Release 24hr 60 mg PO DAILY RF: 0 Discharge Orders: Discharge Order (Routine); Ordered 01/20/22 Ordered By: Trudy Shay Referrals: Trudy Shay MD [Physician] - 4-7 days Discharge Diet: Low Salt Discharge Activity: Limit activity as instructed Patient Instructions: Opioid Safety Discharge Attestations CHARGE MASTER ANALYST Time Spent in Discharge Care*: less than 30 min Coding Level of Care Code Acute Stripper Preliminary for Chg Fwd Diagnoses induced hypertension, antepartum O13.9 with 37 weeks completed gestation Z3A.37
--- NOTE | 2021-03-26 13:27 | ANE.PACU2 ---
Inpatient post-anesthesia follow up: Airway intact: Yes Vital signs: Temperature 98.5 F Pulse Rate 86 Respiratory Rate 16 Blood Pressure 136/83 Pulse Oximetry 100 Oxygen Delivery Me thod Room Air Oxygen Flow Rate Fraction of Inspir ed Oxygen Hydration adequate: Yes Nausea and vomiting: No Pain level: 2 Mental status: Baseline
[2021-03-26 19:00] VITALS: BP 137/82; PULSE 83; RESP 17; TEMP 36.4
== END 2021-03-26 19:05 | disposition home or self-care (01) | DRG 807 ==
LOC: OPOB 04:54 → OBGYN 04:54
PROVIDERS: Admitting Provider Family Medicine; PCP Nurse Practitioner Family; Visit Provider Family Medicine
DX: O13.4 Gestational [pregnancy-induced] hypertension without significant proteinuria, complicating childbirth (principal); Z37.0 Single live birth; O99.214 Obesity complicating childbirth; E66.01 Morbid (severe) obesity due to excess calories; Z3A.37 37 weeks gestation of pregnancy; O70.0 First degree perineal laceration during delivery
CPT/HCPCS: 36415; 51702; 59025; 59409; 80053; 81001; 82570; 84156; 84550; 85025; 85027; 96374; J2795; J3010

== ENCOUNTER → 2022-01-20 16:05 | Outpatient (BNVA) | payer BC, MEDICAID, SELFPAY | PROVIDERS: PCP Nurse Practitioner Family; Visit Provider Registered Nurse Neonatal Intensive Care | DX: J02.9 Acute pharyngitis, unspecified (principal) | CPT/HCPCS: 87071; 87880 ==

== ENCOUNTER 2022-04-24 23:36 | Emergency (ER) | payer BC, MEDICAID, SELFPAY ==
[2022-04-24 23:39] VITALS: BP 142/82; PULSE 111; RESP 14; TEMP 36.8; O2SAT 98; BMI 42.9
--- NOTE | 2022-04-24 23:51 | ED_ITS ---
HPI - Abdominal Pain General: Chief Complaint: Abdominal Pain Stated Complaint: lower abd pain, Time Seen by Provider: 04/24/22 23:49 History of Present Illness: 21-year-old female comes in today for complaints of lower abdominal pain in early . Patient denies any abnormal vaginal discharge or bleeding. Patient cannot recall her last menstrual cycle but it has been over 1 month. Patient had a home test that was positive on the and was verified at the home health department on the . Patient has had no miscarriages and 1 with delivery 1 year ago. Patient had a history of hypertension during . Patient just takes vitamins at this time. Patient denies any chronic medical problems. Associated Symptoms: Denies constipation, diarrhea, fever(s), nausea and vomiting Review of Systems Const: Denies: fever(s) ENMT: Denies: throat pain Card: Denies: chest pain Resp: Denies: dyspnea GI: Reports: abdominal pain; Denies: nausea, vomiting, diarrhea or constipation : Denies: difficulty voiding Skin/Breast: Denies: rash Neuro: Denies: headache(s) Psych: Denies: anxiety Endo: Denies: polyuria [facility] ED PFSH: Social History (Updated 04/05/19 @ 13:13 by Stormy Godwin LPN) Smoking and tobacco status: never smoked Alcohol intake: never Female Reproductive History: Para: 0 Physical Exam Const: COMMON NORMALS: alert HENMT: COMMON NORMALS: normocephalic and Normal external nose present HEAD & SCALP: normocephalic NOSE: Normal external nose present Resp: COMMON NORMALS: normal respiratory effort Cardio: COMMON NORMALS: regular rhythm RHYTHM: regular rhythm GI: COMMON NORMALS: Soft to palpation PALPATION: Yes Soft to palpation and No Tenderness to palpation present (GI) : COMMON NORMALS: Yes no CVA tenderness BLADDER/KIDNEY EXAM: Yes no CVA tenderness Back/Pelvis: COMMON NORMALS: no CVA tenderness Extremity: COMMON NORMALS: no pedal edema Neuro: SENSORIUM/ORIENTATION: Yes alert Skin: COMMON NORMALS: turgor normal GENERAL SKIN EXAM: turgor normal Course Vital Signs: Vital signs: Vital Signs Temperature 98.2 F 04/24/22 23:39 Pulse Rate 111 H 04/24/22 23:39 Respiratory Rate 14 04/24/22 23:39 Blood Pressure 142/82 04/24/22 23:39 Pulse Oximetry 98 04/24/22 23:39 Oxygen Delivery Me thod 04/24/22 23:39 MDM - Abdominal Pain Medical Decision Making 21-year-old female comes in today with complaints of lower abdominal pain. Respirations are even, lungs are clear to auscultation. No edema is noted to the extremities. Abdomen soft with mild to no tenderness. No CVA tenderness. Differential diagnosis includes but not limited to cystitis, threatened miscarriage, constipation. Ultrasound noted intrauterine gestational sac. CBC and CMP were unremarkable. Patient's hCG was in the 1100's. Reviewed exam with patient with recommendations for further treatment and follow-up. Patient reported understanding agreed to plan. Lab Data 04/24/22 23:55 04/24/22 23:55 Labs/Radiology: Radiology Impressions Obstetrics Ultrasound 04/25/22 00:02 IMPRESSION: 1. Single intrauterine gestation estimated at 5 weeks 2 days based on gestational sac dimensions. No pole or yolk sac is identified in the current examination. As such, follow-up sonography could be obtained in 2-4 weeks to establish the presence of a viable intrauterine gestation. 2. Probable corpus luteum cyst within the right ovary. Laboratory Results WBC 9.1 10^3/uL (4.5-13.0) 04/24/22 23:55 RBC 5.44 10^6/uL (4.1-5.3) H 04/24/22 23:55 Hgb 12.9 g/dL (11.5-15.3) 04/24/22 23:55 Hct 42.5 % (37.0-47.0) 04/24/22 23:55 MCV 78.1 fl (81-99) L 04/24/22 23:55 MCH 23.7 pg (28.0-34.0) L 04/24/22 23:55 MCHC 30.4 g/dL (30.0-36.0) 04/24/22 23:55 RDW 15.1 % (12.1-15.1) 04/24/22 23:55 Plt Count 285 10^3/cmm (130-400) 04/24/22 23:55 MPV 10.7 fL (7.4-10.4) H 04/24/22 23:55 Neut % (Auto) 62.7 % 04/24/22 23:55 Lymph % (Auto) 29.7 % 04/24/22 23:55 [place] % (Auto) 5.5 % 04/24/22 23:55 Eos % (Auto) 1.4 % 04/24/22 23:55 Baso % (Auto) 0.4 % 04/24/22 23:55 Neut # (Auto) 5.70 10^3/uL (1.8-8.0) 04/24/22 23:55 Lymph # (Auto) 2.7 10^3/uL (1.5-6.5) 04/24/22 23:55 [place] # (Auto) 0.5 10^3/uL (0.2-0.9) 04/24/22 23:55 Eos # (Auto) 0.1 10^3/uL (0.0-0.8) 04/24/22 23:55 Baso # (Auto) 0.0 10^3/uL (0.0-0.1) 04/24/22 23:55 Nucleated RBC % (auto) 0 % 04/24/22 23: Nucleated RBCs # 0.0 /100WBC 04/24/22 23:55 Sodium 132 mmol/L (136-145) L 04/24/22 23:55 Potassium 3.6 mmol/L (3.5-5.1) 04/24/22 23:55 Chloride 99 mmol/L (98-107) 04/24/22 23:55 Carbon Dioxide 23 mmol/L (22-29) 04/24/22 23:55 Anion Gap 13.6 (5-19) 04/24/22 23:55 BUN 5 mg/dL (6-20) L 04/24/22 23:55 Creatinine 0.5 mg/dL (0.5-0.9) 04/24/22 23:55 GFR Calculation 157.3 mL/min (90-130) H 04/24/22 23:55 Glucose 90 mg/dL (65-115) 04/24/22 23:55 Calculated Osmolality 271 mOsm/kg (285-295) L 04/24/22 23:55 Calcium 8.8 mg/dL (8.5-10.5) 04/24/22 23:55 Total Bilirubin 0.2 mg/dL (0.15-1.2) 04/24/22 23:55 AST 13 U/L (0-32) 04/24/22 23:55 ALT 14 U/L (0-33) 04/24/22 23:55 Alkaline Phosphatase 117 U/L (35-105) H 04/24/22 23:55 Total Protein 6.7 g/dL (6.6-8.7) 04/24/22 23:55 Albumin 4.0 g/dL (3.5-5.2) 04/24/22:55 Globulin 2.7 g/dL (1.3-4.6) 04/24/22 23:55 Lipase 27 U/L (13-60) 04/24/22 23:55 Ser , Semi-Qnt 1158.00 mIU/mL 04/24/22 23:55 Urine Color Yellow (Yellow) 04/25/22 00:00 Urine Appearance Sl hazy (CLEAR) A 04/25/22 00:00 Urine pH 5 (5-7) 04/25/22 00:00 Ur Specific [place] 1.030 (1.005-1.030) 04/25/22 00:00 Urine Protein Trace (Negative) 04/25/22 00:00 Urine Glucose (UA) Norm (Normal) 04/25/22 00:00 Urine Ketones 1+ (Negative) H 04/25/22 00:00 Urine Blood 1+ (Negative) H 04/25/22 00:00 Urine Nitrate Negative (Negative) 04/25/22 00:00 Urine Bilirubin Neg (Negative) 04/25/22 00:00 Urine Urobilinogen 1 mg/dL (Negative) H 04/25/22 00:00 Ur Leukocyte Esterase Negative (Negative) 04/25/22 00:00 Urine RBC 0-4 /hpf (0-2) H 04/25/22 00:00 Urine WBC 0-4 /hpf (0-5) H 04/25/22 00:00 Ur Squamous Epith Cells 10-15 /hpf (0-5) H 04/25/22 00:00 Amorphous Sediment Not Reportable 04/25/22 00:00 Urine Bacteria 2+ /hpf (NONE) H 04/25/22 00:00 Urine Mucus 1+ /hpf 04/25/22 00:00 Blood Type B Positive 04/24/22 23:55 Rho(D) Type Positive 04/24/22 23:55 Antibody Screen Negative 04/24/22 23:55 Discharge Plan Discharge Patient Disposition: Home Clinical Impression: Abdominal pain affecting Condition: Stable Prescriptions: No Action amoxicillin 500 mg tablet 500 mg PO BID 10 Days Qty: 20 0RF PNV comb no.58-iron bisgly-FA 10-400 mg-mcg Capsule 1 cap PO DAILY Discharge Orders: Discharge ED (Routine); Ordered 04/25/22 Ordered By: Ryan Goss Referrals: Nikki Lyon FNP-C [Primary Care Provider] - Discharge Diet: Usual diet Discharge Activity: Increase activity as tolerated Patient Instructions: Abdominal Pain (ED) Activity Restrictions/Additional Instructions: Home and rest. Drink plenty of water and fluids. Activity as tolerated. Strongly recommended not to use any drugs such as nicotine, marijuana, alcohol, or other substances during . Follow-up with your [facility] regarding recommended medications to use during . Continue with your vitamin as directed. Return to ER for worsening symptoms such as bleeding greater than 1 pad an hour, severe abdominal pain, fever greater than 100.4, or new concerns. Coding Level of Care Code ED Water Resource Agent for Isaiah Londono
--- NOTE | 2022-04-25 00:02 | USR_ITS ---
PROCEDURE INFORMATION: Exam: US First Trimester, Transabdominal and US , Transvaginal Exam date and time: 04/25/2022 12:08 AM Age: 21 years old Clinical indication: complicated by abdominal or pelvic pain; Lower; First trimester (<14 weeks 0 days); Gestational age or lmp: [id number]; ; Additional info: Abd pain, cramping LABS AND CLINICAL REPORTS: Serum Choriogonadotropin (HCG): 1158 mIU/mL Last menstrual period start date: Unknown; 02/08/2022 Gestational age (Established): 10 w 6 d Estimated due date (Established): 11/15/2022 TECHNIQUE: Imaging protocol: Real-time transabdominal obstetrical ultrasound of the maternal pelvis and a first trimester , less than 14 weeks 0 days, with image documentation. Transvaginal imaging was used for better evaluation of the fetus, adnexa, and/or cervix. COMPARISON: US OB >= 14 weeks fetus [id number] 11/25/2020 4:05 PM FINDINGS: Gestation: Intrauterine gestation is visualized. No pole is visualized. Embryonic/ heart rate: No pole identified BIOMETRY: Gestational age (AUA): 5 w 2 d. There is an intrauterine gestational sac identified that yields an estimated gestational age of 5 weeks 2 days. Estimated due date (AUA): 12/24/2022 Mean sac diameter: 0.4 cm. EGA (MSD) is 5 w 2 d MATERNAL: Uterus: Uterus measures 7 cm x 5.2 cm x 4.4 cm. The uterus is retroverted measuring 7.0 x 5.2 x 4.4 cm. Cervix: Unremarkable. Right ovary/adnexa: Right ovary measures 3.1 cm x 2.5 cm x 2.5 cm. Right ovarian volume is 9.9 mL. The right ovary measures 3.1 x 2.5 x 2.5 cm with a volume of 9.9 cc. There is a mildly irregular anechoic thick walled cystic mass present within the right ovary that measures 1.5 x 1.0 x 1.1 cm compatible with a corpus luteum cyst. Vascular flow is demonstrated within the right ovary with color Doppler and duplex waveform sonography. PSV 20.4 cm/s Left ovary/adnexa: Left ovary measures 3.1 cm x 2.8 cm x 1.4 cm. Left ovarian volume is 6.3 mL. The left ovary measures 3 1 x 2.8 x 1.4 cm with a volume of 6.3 cc. Vascular flow is demonstrated within the left ovary with color Doppler and duplex waveform sonography. PSV 20.8 cm/s. Intraperitoneal space: No intraperitoneal free fluid. US/US OB <=14 wk fetus w transvag IMPRESSION: 1. Single intrauterine gestation estimated at 5 weeks 2 days based on gestational sac dimensions. No pole or yolk sac is identified in the current examination. As such, follow-up sonography could be obtained in 2-4 weeks to establish the presence of a viable intrauterine gestation. 2. Probable corpus luteum cyst within the right ovary.
[2022-04-25 00:04] LABS: Basophils % 0.4 %; Eosinophils # 0.1 10^3/uL (0.0-0.8); Eosinophils % 1.4 %; Hematocrit 42.5 % (37.0-47.0); Hemoglobin 12.9 g/dL (11.5-15.3); Lymphocytes # 2.7 10^3/uL (1.5-6.5); Lymphocytes % 29.7 %; Mean Corpuscular HGB Conc 30.4 g/dL (30.0-36.0); Mean Corpuscular Hemoglobin 23.7 pg (28.0-34.0); Mean Corpuscular Volume 78.1 fl (81-99); Mean Platelet Volume 10.7 fL (7.4-10.4); Monocytes # 0.5 10^3/uL (0.2-0.9); Monocytes % 5.5 %; Neutrophils % 62.7 %; Nucleated Red Blood Cells % 0 %; Platelet Count 285 10^3/cmm (130-400); Red Blood Count 5.44 10^6/uL (4.1-5.3); Red Cell Distribution Width 15.1 % (12.1-15.1); White Blood Count 9.1 10^3/uL (4.5-13.0)
[2022-04-25 00:26] LABS: Alanine Aminotransferase 14 U/L (0-33); Alkaline Phosphatase 117 U/L (35-105); Anion Gap 13.6 (5-19); Aspartate Amino Transferase 13 U/L (0-32); Blood Urea Nitrogen 5 mg/dL (6-20); Calcium 8.8 mg/dL (8.5-10.5); Carbon Dioxide 23 mmol/L (22-29); Chloride 99 mmol/L (98-107); Globulin 2.7 g/dL (1.3-4.6); Glomerular Filtration Rate 157.3 mL/min (90-130); Glucose 90 mg/dL (65-115); Lipase 27 U/L (13-60); Osmolality Calculated 271 mOsm/kg (285-295); Potassium 3.6 mmol/L (3.5-5.1); Sodium 132 mmol/L (136-145); Total Bilirubin 0.2 mg/dL (0.15-1.2); Total Protein 6.7 g/dL (6.6-8.7)
[2022-04-25 01:13] LABS: Add Urine Microscopic? YES; Bilirubin Urine Neg (Negative); Blood Urine 1+ (Negative); Glucose Urine UA Norm (Normal); Ketones Urine 1+ (Negative); Leukocyte Esterase Urine Negative (Negative); Nitrate Urine Negative (Negative); Protein Urine Trace (Negative); Urine Appearance SL Hazy (CLEAR); Urine Color Yellow (Yellow); Urobilinogen Urine 1 mg/dL (Negative); pH Urine 5 (5-7)
[2022-04-25 01:15] LABS: Add Urine Culture? No; Bacteria Urine 2+ /hpf; Mucus Urine 1+ /hpf; RBC Urine 0-4 /hpf (0-2); WBC Urine 0-4 /hpf (0-5)
[2022-04-25 01:28] VITALS: BP 161/86; PULSE 84; RESP 16; O2SAT 98
== END 2022-04-25 01:27 | disposition home or self-care (01) ==
PROVIDERS: Emergency Provider Nurse Practitioner Family; PCP Nurse Practitioner Family
DX: O26.891 Other specified pregnancy related conditions, first trimester (principal); R10.30 Lower abdominal pain, unspecified; Z3A.01 Less than 8 weeks gestation of pregnancy
CPT/HCPCS: 36415; 76801; 76817; 80053; 81001; 83690; 84702; 85025; 86850; 86900; 99284

== ENCOUNTER 2022-12-06 17:20 | Outpatient (CLI) | payer BC, MEDICAID, SELFPAY ==
[2022-12-06 17:30] VITALS: BP 144/74; PULSE 109
[2022-12-06 17:40] VITALS: RESP 16; TEMP 36.6
[2022-12-06 17:41] VITALS: BMI 48.2
[2022-12-06 17:47] VITALS: BP 133/82; PULSE 110
[2022-12-06 18:04] VITALS: BP 133/82; PULSE 110
== END 2022-12-06 18:09 | disposition home or self-care (01) ==
LOC: OPOB 17:23 → OBGYN 17:24
PROVIDERS: PCP Nurse Practitioner Family; Visit Provider Family Medicine
DX: O36.8190 Decreased fetal movements, unspecified trimester, not applicable or unspecified (principal); Z3A.00 Weeks of gestation of pregnancy not specified; R10.9 Unspecified abdominal pain
CPT/HCPCS: 59025; 99211

== ENCOUNTER 2022-12-16 07:20 | Outpatient (CLI) | payer BC, MEDICAID, SELFPAY ==
[2022-12-16 07:34] VITALS: BP 143/75; PULSE 122; RESP 18
[2022-12-16 07:50] VITALS: BP 146/87; PULSE 108
[2022-12-16 07:58] VITALS: BMI 48.5
[2022-12-16 08:19] VITALS: BP 117/60; PULSE 116
[2022-12-16 08:34] VITALS: BP 117/60; PULSE 102
[2022-12-16 08:49] VITALS: BP 119/65; PULSE 101
== END 2022-12-16 08:55 | disposition home or self-care (01) ==
LOC: OPOB 07:24 → OBGYN 07:25
PROVIDERS: PCP Nurse Practitioner Family; Visit Provider Family Medicine
DX: O46.90 Antepartum hemorrhage, unspecified, unspecified trimester (principal); Z3A.00 Weeks of gestation of pregnancy not specified; R10.9 Unspecified abdominal pain
CPT/HCPCS: 59025; 99211

== ENCOUNTER 2022-12-16 16:56 | Inpatient (IN) | payer BC, MEDICAID, SELFPAY ==
[2022-12-16] VITALS (37 sets, daily range): BP systolic 88–161; BP diastolic 40–91; PULSE 85–132; RESP 15–18; TEMP 36.1; O2SAT 83–100; BMI 48.5
[2022-12-16 17:09] LABS: Basophils % 0.1 %; Eosinophils # 0.1 10^3/uL (0.0-0.8); Eosinophils % 0.4 %; Hematocrit 38.9 % (36-47); Lymphocytes # 2.1 10^3/uL (0.8-4.8); Lymphocytes % 13.9 %; Mean Corpuscular HGB Conc 30.6 g/dL (30-55); Mean Corpuscular Hemoglobin 23.1 pg (27-33); Mean Corpuscular Volume 75.4 fl (85-98); Mean Platelet Volume 11.3 fL (7.4-10.4); Monocytes # 0.7 10^3/uL (0.2-0.9); Monocytes % 4.8 %; Neutrophils # 12.21 10^3/uL (1.8-7.7); Neutrophils % 80.1 %; Nucleated Red Blood Cells % 0 %; Platelet Count 260 10^3/cmm (157-399); Red Blood Count 5.16 10^6/uL (3.85-5.65); Red Cell Distribution Width 17.1 % (12.1-15.1); White Blood Count 15.27 10^3/uL (3.29-11.43)
[2022-12-16] MEDS: lactated ringers 1,000 ML 999 ML IV ×2 (17:11→18:42)
[2022-12-16] MEDS: ROPivacaine syringe 100 MG/50 ML SYRINGE 10 MG EPIDURAL (17:57)
--- NOTE | 2022-12-16 18:00 | P.ANES_ITS ---
Anesthesia Procedures Procedure/Date: 12/16/22 Epidural: Time Out Performed: Yes Consents Signed: Procedure Consent Consent: from patient, risks and benefits reviewed and patient agrees to proceed Lumbar Level: L3-L4 Epidural position: sitting Epidural procedure: sterile prep of area, 1% lidocaine to numb the area, 18 g needle, negative for p aresthesia passed, test dose given, 1.5% xylocaine 1:200k epi, placed PCEA, no systemic response, sterile dressing applied, L.U.D. no apparent complications and 0.2% Ropiavacaine @ mls/hr (10) Additional Comments: KALYANI at 9, negative CSF/blood upon aspiration. 5ml 2% lidocaine given as bolus. pump running at 10ml/hr
--- NOTE | 2022-12-16 18:01 | P.ANESASSM_ITS ---
Pre-Anesthetic Assessment Height/Weight: Height 1.63 m Weight 128.367 kg Pulse BP Pulse Ox 121 H 139/66 97 12/16/22 17:55 12/16/22 17:49 12/16/22 17:55 Preop Diagnosis: IUP epidural Familial anesthetic complications: none Was Beta Mishel taken within 24 hours: N/A Was Clonidine taken within 24 hours: N/A Exam alert and oriented x 3 Airway Submandibular: within normal limits Cervical ROM: within normal limits Mallampati: Class III Dentition: full History/ROS No significant complaints Metabolic Morbid Obesity Anesthetic Plan ASA status: 3 Anesthesia: Anesthesia Evaluation and Regional (specify below) Medications/Allergies Home Medications Medication Instructions Recorded Confirmed Last Taken Type no.58-iron bisglycinate 1 cap PO DAILY 01/14/21 01/20/22 03/05/21 07:00 History 10 mg iron-folic acid 400 mcg capsule amoxicillin 500 mg tablet 500 mg PO BID 10 days #20 tabs 01/20/22 01/20/22 Unknown Rx Allergies Allergy/AdvReac Type Severity Reaction Status Date / Time No Known Allergies Allergy Verified 01/20/22 16:02 Current Medications Generic Name Dose Route Start Last Admin Trade Name Freq PRN Reason Stop Dose Admin Lactated Ringer's 1,000 mls @ 999 mls/hr 12/16/22 17:00 12/16/22 17:11 Lactated Ringers IV 999 mls/hr .Q1H1M PRN Administration See label comments Ropivacaine 100 mg in 50 mls @ 10 mls/hr 12/16/22 17:00 12/16/22 17:57 Naropin Syringe EPIDURAL 10 mls/hr .Q5H ROXANN Administration [facility] Anesthesia Social History (Updated 04/05/19 @ 13:13 by Stormy Godwin LPN) Smoking and tobacco/nicotine status: never used tobacco/nicotine Alcohol intake: never Substance/Drug Use: never Female Reproductive History Para: 0 Data Anesthesia 12/16/22 17:02 Short CBC 12/16/22 Range/Units 17:02 WBC 15.27 H (3.29-11.43) 10^3/uL Hgb 11.90 (11.27-16.99) g/dL Hct 38.9 (36-47) % MCV 75.4 L (85-98) fl Plt Count 260 (157-399) 10^3/cmm Neut % (Auto) 80.1 % Neut # (Auto) 12.21 H (1.8-7.7) 10^3/uL Cardiac Studies: No Data to Display
[2022-12-16] MEDS: dextrose 5%-lactated ringers 1,000 ML 125 ML IV (18:14)
[2022-12-16] MEDS: ondansetron 2 mg/ML SDV 2 mL 4 MG IVP (18:41)
[2022-12-16] MEDS: oxytocin 30 UNIT/500 ML BAG 600 UNIT IV (19:37)
--- NOTE | 2022-12-16 19:46 | PM.OPHPUD ---
Labor & Delivery H&P Update Date of Procedure: December 16, 2022 Date H&P Performed: 12/14/22 Admission Diagnosis: 22-year-old 2 para 1-0-0-1 at 38 weeks estimated stational age presenting in active labor Preop diagnosis: IUP Planned procedure: Vaginal delivery Other information: The patient presented to the hospital complaining of worsening contractions and pelvic/abdominal pain. A cervical check revealed cervix that was 6 cm dilated which was a significant change from earlier today. When she was also seen for contractions.Her has been relatively unremarkable. Her lab results have also been relatively unremarkable. Her blood type was B+. Her antibody screen was negative. She passed her glucose screen. Her infectious disease profile was within normal limits. She is rubella immune. She declined a Tdap vaccination. Related Problem List Diagnoses (1) 38 weeks gestation of : A&P Assessment and plan (1) 38 weeks gestation of : I anticipate routine labor. Status: Acute
--- NOTE | 2022-12-16 19:56 | PM.DELIVERY ---
Delivery Note: Date of delivery: December 16, 2022 Pre-delivery diagnoses: 22-year-old 2 para 1-0-0-1 at 38 weeks estimated gestational age presenting in active labor Post-delivery diagnoses: Status post spontaneous vaginal delivery Procedure: Spontaneous vaginal delivery Delivering Physician: Sundar Velasquez Estimated blood loss (mL): 50 Pre-Delivery Course: The patient presented to the hospital in active labor being 6 cm dilated. An epidural was placed. An amniotomy was performed. The patient progressed to complete without difficulty. Delivery: DELIVERY: The patient progressed to complete without difficulty. She delivered a male with a weight of 7 lbs 2 oz with Apgars of 8, 9. The baby was delivered from the CRYSTAL position and placed on the mother's abdomen. The cord was then clamped and cut. There was a nuchal cord times 1 and the baby was delivered through the cord without difficulty. There was no meconium. The placenta and 3 vessel cord were delivered intact shortly thereafter. The perineum and vaginal vault were carefully examined. No lacerations were noted. Both the mother and the baby were in stable condition. Post-Delivery Status: Good A&P Assessment and plan (1) 38 weeks gestation of : (2) Spontaneous vaginal delivery: I anticipate routine care. Coding Level of Care Code Acute Code for Chg Fwd Diagnoses 38 weeks gestation of Z3A.38 Spontaneous vaginal delivery O80
[2022-12-16] MEDS: ibuprofen 800 mg tablet PO (22:27)
[2022-12-17 00:30] VITALS: BP 131/73; PULSE 93; TEMP 36.7
[2022-12-17 01:37] VITALS: BP 100/53; PULSE 93; TEMP 36.9
[2022-12-17 03:30] VITALS: BP 118/68; PULSE 98; TEMP 37.1
[2022-12-17 05:30] VITALS: BP 122/72; PULSE 94; TEMP 37.1
[2022-12-17 06:45] LABS: Hematocrit 34.5 % (36-47); Mean Corpuscular Hemoglobin 23.4 pg (27-33); Mean Corpuscular Volume 75.3 fl (85-98); Mean Platelet Volume 11.1 fL (7.4-10.4); Platelet Count 221 10^3/cmm (157-399); Red Blood Count 4.58 10^6/uL (3.85-5.65); Red Cell Distribution Width 17.2 % (12.1-15.1); White Blood Count 13.94 10^3/uL (3.29-11.43)
--- NOTE | 2022-12-17 07:25 | ANE.PACU2 ---
Inpatient post-anesthesia follow up: Airway intact: Yes Vital signs: Temperature 98.7 F Pulse Rate 94 Respiratory Rate 15 Blood Pressure 122/72 Pulse Oximetry 86 Oxygen Delivery Me thod Room Air Oxygen Flow Rate Fraction of Inspir ed Oxygen Hydration adequate: Yes Nausea and vomiting: No Pain level: 2 Mental status: Baseline Additional Comments: Anes start 12/16/22 9119 Anes end 12/16/221999
[2022-12-17] MEDS: prenatal vitamin Capsule 1 CAP PO (09:40)
[2022-12-17] MEDS: docusate sodium 100 mg Capsule PO ×2 (09:40→17:42)
[2022-12-17] MEDS: ibuprofen 800 mg tablet PO ×2 (09:40→17:42)
[2022-12-17 16:45] VITALS: BP 138/81; PULSE 85; RESP 19; TEMP 36.6; O2SAT 98
--- NOTE | 2022-12-17 17:34 | PM.OBGYDC ---
Discharge Providers SENIOR NET APPLICATION DEVELOPER Date of Admission: 12/16/22 16:56 Date of Discharge: 12/17/22 Attending Provider at Admission: Sundar Velasquez MD Attending Provider at Discharge: Sundar Velasquez MD Primary Care Provider: TAMARA Saleem Diagnoses at Discharge Discharge Diagnosis (1) 38 weeks gestation of : Status: Acute (2) Spontaneous vaginal delivery: Status: Acute Reason for Visit Reason for Visit: contractions Hospital Course Hospital Course The patient presented to the hospital in active labor. She received an epidural. An amniotomy was performed. She progressed to complete and had an unremarkable delivery of a healthy infant. Her course was also unremarkable. Her bleeding was minimal. Her pain was well controlled. She ambulated without difficulty. Information Peripartum Data: Infant Delivery Method: Vaginal Physical Exam Narrative: The patient is alert and oriented. Her lungs are clear to auscultation bilaterally Heart has a regular rate and rhythm Abdomen is nondistended nontender Her fundus is below the umbilicus. She has trace edema in her lower extremities bilaterally Discharge Data Studies Completed and Pending Laboratory Results WBC 13.94 10^3/uL (3.29-11.43) H 12/17/22 06:32 RBC 4.58 10^6/uL (3.85-5.65) 12/17/22 06:32 Hgb 10.70 g/dL (11.27-16.99) L 12/17/22 06:32 Hct 34.5 % (36-47) L 12/17/22 06:32 MCV 75.3 fl (85-98) L 12/17/22 06:32 MCH 23.4 pg (27-33) L 12/17/22 06:32 MCHC 31.0 g/dL (30-55) 12/17/22 06:32 RDW 17.2 % (12.1-15.1) H 12/17/22 06:32 Plt Count 221 10^3/cmm (157-399) 12/17/22 06:32 MPV 11.1 fL (7.4-10.4) H 12/17/22 06:32 Neut % (Auto) 80.1 % 12/16/22 17:02 Lymph % (Auto) 13.9 % 12/16/22 17:02 [place] % (Auto) 4.8 % 12/16/22 17:02 Eos % (Auto) 0.4 % 12/16/22 17:02 Baso % (Auto) 0.1 % 12/16/22 17:02 Neut # (Auto) 12.21 10^3/uL (1.8-7.7) H 12/16/22 17:02 Lymph # (Auto) 2.1 10^3/uL (0.8-4.8) 12/16/22 17:02 [place] # (Auto) 0.7 10^3/uL (0.2-0.9) 12/16/22 17:02 Eos # (Auto) 0.1 10^3/uL (0.0-0.8) 12/16/22 17:02 Baso # (Auto) 0.0 10^3/uL (0.0-0.1) 12/16/22 17:02 Nucleated RBC % (auto) 0 % 12/16/22 17:02 Nucleated RBCs # 0.0 /100WBC 12/16/22 17:02 Blood Type B Positive 12/16/22 17:02 Rho(D) Type Positive 12/16/22 17:02 Antibody Screen Negative 12/16/22 17:02 Vitals Last Vital Signs Temp 98.7 F 12/17/22 05:30 Pulse 94 12/17/22 05:30 Resp 15 12/16/22 21:16 BP 122/72 12/17/22 05:30 Pulse Ox 86 L 12/16/22 19:32 O2 Del Method Room Air 12/17/22 05:30 Results Labs OB ([facility]): Obstetrics US 09/20/22 Blood Type B Positive 12/16/22 Antibody Screen Negative 12/16/22 Hct 34.5 % (36-47) L 12/17/22 Hgb 10.70 g/dL (11.27-16.99) L 12/17/22 Rho(D) Type Positive 12/16/22 Plt Count 221 10^3/cmm (157-399) 12/17/22 Hep Bs Antibody 9.6 (11.5-1000) L 11/03/21 Rubella IgG Antibody 38.9 IU/mL (0.0-10.0) H 11/03/21 Urine Protein Trace (Negative) 04/25/22 Urine Glucose (UA) Norm (Normal) 04/25/22 Uric Acid 6.3 mg/dL (2.4-5.7) H 03/23/21 VZV IgG Antibody 837.30 index 11/03/21 Discharge Plan Discharge Prescriptions: New ibuprofen 800 mg Tablet 800 mg PO TID Qty: 45 0RF Continued PNV comb no.58-iron bisgly-FA 10-400 mg-mcg Capsule 1 cap PO DAILY Discontinued amoxicillin 500 mg tablet 500 mg PO BID 10 Days Qty: 20 0RF Referrals: Sundar Velasquez MD [Physician] - 6 Weeks Discharge Diet: Usual diet Discharge Activity: Limit activity as instructed Patient Instructions: Opioid Safety Discharge Attestations SENIOR NET APPLICATION DEVELOPER Time Spent in Discharge Care*: less than 30 min Coding Level of Care Code Acute Code for Chg Fwd Diagnoses 38 weeks gestation of Z3A.38 Spontaneous vaginal delivery O80
[2022-12-17 20:50] VITALS: BP 123/75; PULSE 83; RESP 16; TEMP 36.7; O2SAT 99
== END 2022-12-17 20:59 | disposition home or self-care (01) | DRG 807 ==
LOC: OPOB 12-17 05:36 → OBGYN 12-17 05:36
PROVIDERS: Admitting Provider Family Medicine; PCP Nurse Practitioner Family; Visit Provider Family Medicine
DX: O69.81X0 Labor and delivery complicated by cord around neck, without compression, not applicable or unspecified (principal); Z37.0 Single live birth; Z3A.38 38 weeks gestation of pregnancy
CPT/HCPCS: 36415; 59025; 59409; 85025; 85027; 86850; 86900; 96374; 99211; J2405; J2590; J2795; J7120; J7121

== ENCOUNTER 2023-04-06 20:46 | Emergency (ER) | payer MEDICAID, SELFPAY ==
[2023-04-06 20:50] VITALS: BP 142/90; PULSE 126; RESP 18; TEMP 37.7; O2SAT 97
[2023-04-06 22:37] LABS: Basophils % 0.2 %; Eosinophils % 0.2 %; Hematocrit 42.6 % (36-47); Lymphocytes # 2.1 10^3/uL (0.8-4.8); Lymphocytes % 22.3 %; Mean Corpuscular HGB Conc 30.3 g/dL (30-55); Mean Corpuscular Hemoglobin 23.9 pg (27-33); Mean Corpuscular Volume 78.9 fl (85-98); Mean Platelet Volume 10.2 fL (7.4-10.4); Monocytes # 0.7 10^3/uL (0.2-0.9); Monocytes % 7.3 %; Neutrophils # 6.42 10^3/uL (1.8-7.7); Neutrophils % 69.7 %; Nucleated Red Blood Cells % 0 %; Platelet Count 245 10^3/cmm (157-399); Red Cell Distribution Width 14.3 % (12.1-15.1); White Blood Count 9.21 10^3/uL (3.29-11.43)
[2023-04-06 22:57] LABS: Alanine Aminotransferase 30 U/L (0-33); Alkaline Phosphatase 120 U/L (35-105); Anion Gap 15.8 (5-19); Aspartate Amino Transferase 19 U/L (0-32); Blood Urea Nitrogen 8 mg/dL (6-20); Calcium 9.2 mg/dL (8.5-10.5); Carbon Dioxide 24 mmol/L (22-29); Chloride 103 mmol/L (98-107); Globulin 3.7 g/dL (1.3-4.6); Glomerular Filtration Rate 90.5 mL/min (90-130); Glucose 92 mg/dL (65-115); Osmolality Calculated 286 mOsm/kg (285-295); Potassium 3.8 mmol/L (3.5-5.1); Sodium 139 mmol/L (136-145); Total Bilirubin 0.3 mg/dL (0.15-1.2); Total Protein 7.7 g/dL (6.6-8.7)
--- NOTE | 2023-04-06 23:35 | ED_ITS ---
HPI - General Adult 2 General: Chief complaint: General Medical Stated complaint: neck throbbing pain stiff throat pain Time Seen by Provider: 04/06/23 23:33 History of Present Illness: 22-year-old female comes in today with s ore throat. Patient has been on Augmentin x 2 days and has had no significant improvement in her sore throat. Patient came for difficulty swallowing. Patient appears nontoxic. Respirations are even. Patient is managing secretions well. Patient has a history of recurrent tonsillitis. Review of Systems 2 General: Reports: 10 or more systems reviewed and unremarkable except in HPI and below ENMT: Reports: throat pain PFSH ED 2 PFSH: Family History Grandfather Diabetes Grandmother Diabetes Father Hypertension Social History Smoking and tobacco/nicotine status: never used tobacco/nicotine Alcohol intake: never Substance/Drug Use: never Adopted: No Lives independently: Yes Household members: significant other Housing: House Marital status: Single Number of children: 2 Highest education level completed: 9th Grade service: No Current occupational status: unemployed 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 Current gender identity: Female Female Reproductive History: Para: 0 Physical Exam 2 Const: COMMON NORMALS: alert HENMT: COMMON NORMALS: normocephalic HEAD & SCALP: normocephalic THROAT: abnormal tonsil bilateral erythema, hypertrophy and crypts Neck/C-Spine: COMMON NORMALS: no meningeal signs Lymph: OTHER: Tender lymph nodes bilateral neck. Resp: COMMON NORMALS: normal respiratory effort and clear to auscultation bilaterally AUSCULTATION: clear to auscultation bilaterally Cardio: RATE: tachycardic GI: COMMON NORMALS: Soft to palpation PALPATION: Yes Soft to palpation Back/Pelvis: COMMON NORMALS: thoracic and lumbar spine normal to inspection Extremity: COMMON NORMALS: normal to inspection Neuro: SENSORIUM/ORIENTATION: Yes alert MENINGEAL SIGNS: Yes no meningeal signs Skin: COMMON NORMALS: turgor normal GENERAL SKIN EXAM: turgor normal Course 2 Vital Signs: Vital signs: Vital Signs Temperature 99.8 F H 04/06/23 20:50 Pulse Rate 94 04/06/23 23:51 Respiratory Rate 18 04/06/23 23:51 Blood Pressure 161/110 04/06/23 23:51 Pulse Oximetry 97 04/06/23 23:51 Oxygen Delivery Me thod Room Air 04/06/23 20:50 MDM - General Adult Medical Decision Making 42-year-old female comes in today with sore throat x 7 days. Patient reports that the family has been ill for a little over 1 week. Patient was seen in the urgent care and was started on Augmentin for tonsillitis and ear infection. Patient reports difficulty swallowing. On exam bilateral tonsils are hypertrophied with some erythema. Vital signs are normal except for elevated pulse and some mild temperature. Differential diagnosis includes tonsillitis, tonsillar abscess, upper respiratory infection, otitis media, rhinosinusitis. Patient is managing secretions well. No signs of significant abnormality on exam. Patient was given some Toradol, dexamethasone, and clindamycin. Patient will be discharged home with clindamycin. CBC CMP was unremarkable. Patient did test positive for influenza A. We will treat the tonsillitis due to the significant swelling and hypertrophy of the tonsils. Patient will be referred to ENT for further evaluation and consideration of removal. Lab Data 04/06/23 22:32 04/06/23 22:32 Laboratory Results WBC 9.21 10^3/uL (3.29-11.43) 04/06/23 22: RBC 5.40 10^6/uL (3.85-5.65) 04/06/23 22: Hgb 12.90 g/dL (11.27-16.99) 04/06/23 22: Hct 42.6 % (36-47) 04/06/23 22: MCV 78.9 fl (85-98) L 04/06/23 22: MCH 23.9 pg (27-33) L 04/06/23 22: MCHC 30.3 g/dL (30-55) 04/06/23 22: RDW 14.3 % (12.1-15.1) 04/06/23 22: Plt Count 245 10^3/cmm (157-399) 04/06/23 22:32 MPV 10.2 fL (7.4-10.4) 04/06/23 22:32 Neut % (Auto) 69.7 % 04/06/23 22: Lymph % (Auto) 22.3 % 04/06/23 22:32 [place] % (Auto) 7.3 % 04/06/23 22:32 Eos % (Auto) 0.2 % 04/06/23 22:32 Baso % (Auto) 0.2 % 04/06/23 22:32 Neut # (Auto) 6.42 10^3/uL (1.8-7.7) 04/06/23 22:32 Lymph # (Auto) 2.1 10^3/uL (0.8-4.8) 04/06/23 22:32 [place] # (Auto) 0.7 10^3/uL (0.2-0.9) 04/06/23 22:32 Eos # (Auto) 0.0 10^3/uL (0.0-0.8) 04/06/23: Baso # (Auto) 0.0 10^3/uL (0.0-0.1) 04/06/23 22:32 Nucleated RBC % (auto) 0 % 04/06/23: Nucleated RBCs # 0.0 /100WBC 04/06/23 22:32 Sodium 139 mmol/L (136-145) 04/06/23 22:32 Potassium 3.8 mmol/L (3.5-5.1) 04/06/23 22:32 Chloride 103 mmol/L (98-107) 04/06/23 22:32 Carbon Dioxide 24 mmol/L (22-29) 04/06/23 22:32 Anion Gap 15.8 (5-19) 04/06/23 22:32 BUN 8 mg/dL (6-20) 04/06/23 22:32 Creatinine 0.8 mg/dL (0.5-0.9) 04/06/23 22:32 GFR Calculation 90.5 mL/min (90-130) 04/06/23 22:32 Glucose 92 mg/dL (65-115) 04/06/23 22:32 Calculated Osmolality 286 mOsm/kg (285-295) 04/06/23 22:32 Calcium 9.2 mg/dL (8.5-10.5) 04/06/23 22:32 Total Bilirubin 0.3 mg/dL (0.15-1.2) 04/06/23 22:32 AST 19 U/L (0-32) 01/31/24 22:32 ALT 30 U/L (0-33) 04/06/23 22:32 Alkaline Phosphatase 120 U/L (35-105) H 04/06/23 22:32 Total Protein 7.7 g/dL (6.6-8.7) 04/06/23 22:32 Albumin 4.0 g/dL (3.5-5.2) 04/06/23 22:32 Globulin 3.7 g/dL (1.3-4.6) 04/06/23 22:32 Influenza Type A Ag positive (Negative) H 04/06/23 23:40 Influenza Type B Ag negative (Negative) 04/06/23 23:40 SARS-CoV-2 Ag (Rapid) negative (Negative) 04/06/23 23:40 Group A Strep Rapid Negative (Negative) 04/06/23 23:40 No radiology studies performed this visit Discharge Plan Discharge Patient Disposition: Home Clinical Impression: Influenza A Acute infective tonsillitis Qualifiers: Pharyngitis/tonsillitis etiology: unspecified etiology Qualified Code(s): J - Acute tonsillitis, unspecified Condition: Stable Prescriptions: New clindamycin HCl 150 mg capsule 450 mg PO Q8H 7 Days Qty: 63 0RF No Action medroxyprogesterone [Depo-Provera] 150 mg/mL suspension 150 mg IM ONCE 90 Days Qty: 90 3RF citalopram [Celexa] 20 mg tablet 20 mg PO DAILY Qty: 30 0RF amoxicillin-pot clavulanate 875-125 mg tablet 1 tab PO BID 7 Days Qty: 14 0RF Discharge Orders: Discharge ED (Routine); Ordered 04/07/23 Ordered By: Ryan Goss Referrals: Nikki Lyon FNP-C [Primary Care Provider] - Discharge Diet: Usual diet Discharge Activity: Increase activity as tolerated Patient Instructions: Tonsillitis (ED) Activity Restrictions/Additional Instructions: Home and rest. Drink plenty water and fluids. Take medications as directed. Follow-up with primary care for further instructions. Stop Augmentin and just take clindamycin 450 mg as directed for the next 7 days. Case management will contact you regarding follow-up with ENT specialist. Coding Level of Care Code ED [facility] Lead Hand for Isaiah Londono
[2023-04-06 23:51] VITALS: BP 161/110; PULSE 94; RESP 18; O2SAT 97
[2023-04-07] LABS: Rapid Strep A Test Negative (Negative)
[2023-04-07] MEDS: sodium chloride 0.9% 500 ML 999 ML IV (00:02)
[2023-04-07] MEDS: ketorolac 30 mg/mL INJ IVP (00:03)
[2023-04-07] MEDS: clindamycin 900 MG/50 ML PREMIX 100 MG IV (00:04)
[2023-04-07] MEDS: dexamethasone 10 mg/mL INJ IVP (00:04)
[2023-04-07 00:06] LABS: Influenza A by IFA positive (Negative); Influenza B by IFA negative (Negative)
[2023-04-07 00:08] LABS: SARS Covid-2 Antigen negative (Negative)
[2023-04-07 00:30] VITALS: BP 124/73; PULSE 88; RESP 20; O2SAT 97
--- NOTE | 2023-04-14 19:19 | DCPLANNER ---
Message sent to ENT for recurrent tonsillitis.
== END 2023-04-07 00:31 | disposition home or self-care (01) ==
PROVIDERS: Emergency Medicine; Emergency Provider Nurse Practitioner Family; PCP Nurse Practitioner Family
DX: J10.1 Influenza due to other identified influenza virus with other respiratory manifestations (principal); J03.90 Acute tonsillitis, unspecified; Z11.52 Encounter for screening for COVID-19
CPT/HCPCS: 36415; 80053; 85025; 87081; 87426; 87804; 87880; 96365; 96375; 99284; J1100; J1885; J3490; J7040

== ENCOUNTER → 2023-04-27 09:44 | Outpatient (BNVA) | payer MEDICAID, SELFPAY | PROVIDERS: PCP Nurse Practitioner Family; Visit Provider Otolaryngology | DX: J03.90 Acute tonsillitis, unspecified (principal); G47.33 Obstructive sleep apnea (adult) (pediatric); J35.1 Hypertrophy of tonsils; E66.01 Morbid (severe) obesity due to excess calories; Z68.42 Body mass index [BMI] 45.0-49.9, adult | CPT/HCPCS: 99204 ==

== ENCOUNTER → 2023-08-04 12:41 | Outpatient (BNVA) | payer MEDICAID, SELFPAY | PROVIDERS: PCP Nurse Practitioner Family; Visit Provider Nurse Practitioner Family | DX: S99.911A Unspecified injury of right ankle, initial encounter (principal); X58.XXXA Exposure to other specified factors, initial encounter; M79.89 Other specified soft tissue disorders | CPT/HCPCS: 73610 ==

== ENCOUNTER 2024-04-26 18:53 | Emergency (ER) | payer BC, MEDICAID, SELFPAY ==
[2024-04-26 19:43] VITALS: BP 146/93; PULSE 85; RESP 16; TEMP 36.6; O2SAT 99
--- NOTE | 2024-04-26 19:48 | XRR_ITS ---
PROCEDURE INFORMATION: Exam: XR Right Knee Exam date and time: 04/26/2024 8:28 PM Age: 23 years old Clinical indication: Injury or trauma; Fall; Swelling (edema); Knee; Bilateral TECHNIQUE: Imaging protocol: Radiologic exam of the right knee. Views: 3 views. COMPARISON: CR XR ankle RT min 3V* [id number] 08/04/2023 12:49 PM FINDINGS: Bones/joints: Normal. Soft tissues: Normal. XR/XR knee RT 3V* [id number] IMPRESSION: No acute findings.
--- NOTE | 2024-04-26 19:48 | XRR_ITS ---
PROCEDURE INFORMATION: Exam: XR Left Knee Exam date and time: 04/26/2024 8:23 PM Age: 23 years old Clinical indication: Injury or trauma; Fall; Swelling (edema); Knee; Bilateral TECHNIQUE: Imaging protocol: Radiologic exam of the left knee. Views: 3 views. COMPARISON: No relevant prior studies available. FINDINGS: Bones/joints: Normal. Soft tissues: Normal. XR/XR knee LT 3V* [id number] IMPRESSION: No acute findings.
--- NOTE | 2024-04-26 20:49 | W.ED.EXTPRO ---
HPI - Extremity Problem General: Chief complaint: Extremity Injury, Lower Stated complaint: fall both knees injured Time Seen by Provider: 04/26/24 20:19 Source: patient Mode of arrival: ambulatory Limitations: no limitations History of Present Illness: Patient is a 23-year-old female who presents the emergency department after falling onto both knees a couple of hours prior to coming in. Patient states she slipped on ice, directly landing on anterior right and left knee. Has been able to walk since, states she has had increasing pain. Notes that the left knee went black and blue but this has since resolved. Has not taken any medications and has not used ice. No distal neurovascular symptoms reported. No open wounds. Pain does not radiate. Abrasions noted to both anterior knees. MD Complaint: joint pain Pain Consistency: constant Location: left, right and knee Radiation: none Relieving factors: rest Exacerbating factors: range of motion and walking Associated symptoms: Deny chest pain, fever(s) or rash Related Data Previous Rx's ?Medication ?Instructions ?Recorded citalopram 20 mg tablet (Celexa) 20 mg PO DAILY #30 tabs 11/30/23 medroxyprogesterone 150 mg/mL 150 mg IM ONCE 90 days #90 mL 11/30/23 intramuscular suspension (Depo-Provera) norgestimate-ethinyl estradiol 1 tab PO DAILY #84 tabs 11/30/23 0.18 mg/0.215mg/0.25mg-35 mcg(28)tablet (Tri-Sprintec (28)) Allergies Allergy/AdvReac Type Severity Reaction Status Date / Time No Known Allergies Allergy Verified 04/26/24 19:45 Review of Systems General: Reports: 10 or more systems reviewed and unremarkable except in HPI and below Const: Denies: fever(s) or chills Card: Denies: chest pain Resp: Denies: dyspnea or productive cough GI: Denies: abdominal pain, nausea, vomiting or diarrhea : Denies: flank pain Musc: Reports: joint pain (Bilateral knees) and limited range of motion; Denies: neck pain, back pain, extremity pain, extremity swelling, joint swelling, joint redness, joint warmth or muscle weakness Skin/Breast: Denies: rash Neuro: Denies: headache(s), numbness in extremities or weakness in extremities PFS ED PFSH: Surgical History Hx of tympanostomy tubes Family History Grandfather Diabetes Grandmother Diabetes Father Hypertension Social History Smoking and tobacco/nicotine status: unknown if used tobacco/nicotine Alcohol intake: never Substance/Drug Use: never Adopted: No Lives independently: Yes Household members: significant other Housing: House Marital status: Single Number of children: 2 Highest education level completed: 9th Grade service: No Current occupational status: unemployed 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 Current gender identity: Female Female Reproductive History: Para: 0 Physical Exam Const: COMMON NORMALS: no acute distress, patient oriented x3, no limitations, alert and well nourished NUTRITIONAL APPEARANCE: obese HENMT: COMMON NORMALS: normocephalic and atraumatic HEAD & SCALP: normocephalic and atraumatic Neck/C-Spine: COMMON NORMALS: full ROM, supple and no meningeal signs Resp: COMMON NORMALS: normal respiratory effort, No use of accessory muscles and clear to auscultation bilaterally AUSCULTATION: clear to auscultation bilaterally Cardio: COMMON NORMALS: regular rate and regular rhythm RATE: regular rate RHYTHM: regular rhythm Extremity: COMMON NORMALS: full ROM, capillary refill normal, no joint enlargement and no clubbing, cyanosis or edema NARRATIVE EXTREMITY EXAM: Abrasions to bilateral anterior knees. Mild tenderness to palpation of both knees. Endorsing some pain to the left popliteal region. No distal neurovascular symptoms. Range of motion intact, reporting pain that is worse with flexion of both knees, improved with extension. No obvious swelling or bruising of the knees. Neuro: COMMON NORMALS: patient oriented x3, moves all extremities, no focal motor deficits and no sensory deficits noted SENSORIUM/ORIENTATION: Yes alert MENINGEAL SIGNS: Yes no meningeal signs Skin: COMMON NORMALS: no rashes or lesions noted GENERAL SKIN EXAM: no rashes or lesions noted Course Vital Signs: Vital signs: Vital Signs Temperature 98 F 04/26/24 19:43 Pulse Rate 85 04/26/24 19:43 Respiratory Rate 16 04/26/24 19:43 Blood Pressure 146/93 04/26/24 19:43 Pulse Oximetry 99 04/26/24 19:43 MDM - Extremity (Nontraumatic) Medical Decision Making Patient fell on both knees, x-rays were normal and negative for any fracture. Discussed conservative therapy will have her follow-up with primary care for further evaluation. She was concerned about her blood pressure I told her to keep a log of this at home and report to primary care as well. Lab Data Radiology Impressions Knee X-Ray 04/26/24 19:48 IMPRESSION: No acute findings. All radiology interpretation(s) finalized by discharge Discharge Plan Discharge Patient Disposition: Home Clinical Impression: Contusion of knee, right Qualifiers: Encounter type: initial encounter Qualified Code(s): S80.01XA - Contusion of right knee, initial encounter Contusion of knee, left Qualifiers: Encounter type: initial encounter Qualified Code(s): S80.02XA - Contusion of left knee, initial encounter Condition: Stable Prescriptions: No Action medroxyprogesterone [Depo-Provera] 150 mg/mL suspension 150 mg IM ONCE 90 Days Qty: 90 3RF norgestimate-ethinyl estradiol [Tri-Sprintec (28)] 0.18/0.215/0.25 mg-35 mcg (28) tablet 1 tab PO DAILY Qty: 84 3RF citalopram [Celexa] 20 mg tablet 20 mg PO DAILY Qty: 30 5RF Discharge Orders: Discharge ED (Routine); Ordered 04/26/24 Ordered By: Kerwin Hyatt Referrals: Nikki Lyon FNP-C [Primary Care Provider] - Patient Instructions: Contusion in Adults (ED) Activity Restrictions/Additional Instructions: Rest, ice, compression, and elevation. Ibuprofen or Tylenol for pain. Can do range of motion exercises as tolerated. Follow-up with primary care. Print Language: Irish Coding Level of Care Code ED [place] Maker Hand for Isaiah Londono
[2024-04-26] MEDS: ibuprofen 800 mg tablet PO (21:09)
[2024-04-26 21:45] VITALS: BP 155/105; PULSE 80; RESP 15; O2SAT 100
[2024-04-26 21:53] VITALS: BP 155/105; PULSE 80; O2SAT 99
== END 2024-04-26 21:54 | disposition home or self-care (01) ==
PROVIDERS: Emergency Provider Physician Assistant; PCP Nurse Practitioner Family
DX: S80.01XA Contusion of right knee, initial encounter (principal); S80.02XA Contusion of left knee, initial encounter; W00.0XXA Fall on same level due to ice and snow, initial encounter
CPT/HCPCS: 73562; 99283

== ENCOUNTER 2024-08-16 14:38 | Outpatient (CLI) | payer BC, MEDICAID, SELFPAY ==
--- NOTE | 2024-08-16 14:46 | XR_ITS ---
WS: [id number] Chest 2 views, 08/16/2024 Clinical Data: ACUTE COUGH Comparison: None. Findings: There is a patchy opacity extending from the left hilum inferiorly into the left lower lobe which may represent viral pneumonia. No nodules, masses or effusions are seen. The heart is normal. The pulmonary vascularity is not increased. No pneumothorax is seen. XR/XR chest 2V* [id number] Impression: Patchy opacity in the left hilum extending in the left lower lobe which may rep resent viral pneumonia.
== END 2024-08-16 14:39 | disposition home or self-care (01) ==
PROVIDERS: PCP Family Medicine; Visit Provider Nurse Practitioner Family
DX: R05.1 Acute cough (principal); R91.8 Other nonspecific abnormal finding of lung field
CPT/HCPCS: 71046

== ENCOUNTER 2024-09-09 12:56 | Emergency (ER) | payer BC, MEDICAID, SELFPAY ==
--- OUTSIDE RECORDS SUMMARY | 2024-09-09 12:59 | XMS_ITS | Data Portability ---
Author Organization ANTON [facility] [place] [facility] Shari Lema [facility] Address [address] [facility] [address] [place] [address] Care Team Providers Care Maintenance Porter Name Role Phone JABARI OLGUIN Primary Care Provider Assessment No assessment recorded. Plan of Treatment Reminders Order Date Submit Date Provider Last Modified By Organization Details Last Modified Time Details Appointments None recorded. Lab streptococc us group B, culture, unspecified specimen 2022 023 [place] Inaika [facility], [address] [place] [address], [address] [place], [address], 08:11:57 Referral None recorded. Procedures None recorded. Surgeries None recorded. Imaging None recorded. Medication Orders None recorded. Patient TargetsNo targets recorded. Patient InstructionsNo instructions recorded. Reason for Referral None Reported. Results Created Date Observation Date Name Description Value Unit Range Abnormal Flag Note LastModifiedBy Organization Detail LastModifiedTime 12/02/19 23 12/04/2022 STREP TOCOC CUS, GROUP B CULTU RE streptococcu s, group B culture SEE NOTE STREP TOCOC CUS, GROUP B CULTU RE Micro Numbe r: [id number] Test Statu s: Final Speci men Sourc e: Vagin al/an orect al Speci men Quali ty: Adequ ate Resul t: No group B Strep tococ cus isola nba Note per CDC guide lines optim al recov mireya is achie eddie by swabb ing both the lower vagin a and rectu m (thro ugh the anal sphin cter) . Not Available Inaika [facility] [address] [place], [address], 12/04/2022 08:11:57 Result Notes None recorded. Problems Name Problem SNOMED Code Status Onset Date Resolution Date Notes Provider Name and Address Organization Details Recorded Time Candidiasis of skin 57401562 Active 2022 MANJEET FRITZ [facility] 3 17:09:43 Normal in multigravid a 6490912898590 06 Active 2022 EARL ANDRADE [facility], L[facility]CM[facility]elle 3 17:12:40 Normal in multigravid a 6287424145990 06 Active 2022 EARL ANDRADE [facility] 3 17:12:40 Problem Notes None recorded. Medical Equipment None Reported. Allergies No known drug allergies Medications Name Sig Start Date Stop Date Status Note LastModified by Organization Details LastModified Time amoxicill in 500 mg capsule take 1 capsule BY MOUTH TWICE DAILY for 10 days 06/29 completed Not Available Not Available Not Available clindamyc in HCl 300 mg capsule take 1 capsule BY MOUTH THREE TIMES DAILY 10/05 completed Not Available Not Available Not Available famotidin e 20 mg tablet TAKE 1 TABLET BY MOUTH TWICE DAILY active Not Available Not Available No t Available nystatin 100,000 unit/gram topical cream APPLY TO THE AFFECTED AREA(S) TWICE DAILY active Not Available Not Available No t Available amoxicill in 875 mg-potass ium clavulana te 125 mg tablet two times daily 10/05 completed Recorded 05/21/19 6:47PM by Haleigh Guillory, Office Visit; Refill Quantity : 0; Not Available Not Available Not Available 10/26 completed Not Available Not Available Not Available Vitamin daily active 0; Recorded 05/03/19 8:32AM by Earl ramirez, Office Visit; Not Available Not Available Not Available Vitals Date Recorded Body height Body mass index (BMI) Body weight Oxygen saturation Oxygen saturation in Arterial blood by Pulse oximetry Heart rate Respiratory rate Body temperature Systolic And Diastolic Provider Name and Address Organization Details Last Updated DateTime 3 162.56 cm 47.5 kg/m2 828094. 194764 g 99 % 99 % 112 /min 18 /min 98 [degF] 122/70 mm[Hg] EARL OLVERA [facility], L.L[facility]CM[facility]elle 3 12:27:23 Date Recorded Body height Body mass index (BMI) Body weight Respiratory rate Oxygen saturation Oxygen saturation in Arterial blood by Pulse oximetry Heart rate Body temperature Systolic And Diastolic Provider Name and Address Organization Details Last Updated DateTime 3 162.56 cm 47.9 kg/m2 208197. 522704 g 20 /min 99 % 99 % 116 /min 98.1 [degF] 128/80 mm[Hg] PAU CALIXTO [facility] 3 12:12:40 Date Recorded Body height Body mass index (BMI) Body weight Oxygen saturation Oxygen saturation in Arterial blood by Pulse oximetry Heart rate Respiratory rate Body temperature Systolic And Diastolic Provider Name and Address Organization Details Last Updated DateTime 3 162.56 cm 48.4 kg/m2 972056. 34982 g 98 % 98 % 110 /min 20 /min 97.8 [degF] 128/76 mm[Hg] EARL BASILIOAKAmy [facility], L.L.CMarcelle 3 11:59:45 Date Recorded Body height Body mass index (BMI) Body weight Oxygen saturation Oxygen saturation in Arterial blood by Pulse oximetry Heart rate Respiratory rate Body temperature Systolic And Diastolic Provider Name and Address Organization Details Last Updated DateTime 3 162.56 cm 48.7 kg/m2 217288. 24428 g 99 % 99 % 104 /min 20 /min 97.9 [degF] 130/72 mm[Hg] [facility] 11:51:47 Social History Question Answer Notes LastModified by Organizat ion Details LastModified Time Tobacco Smoking Status Never Sm[facility]/29/2022 15:25:26 What Is Your Relationship Status? Domestic Partner Information not available 06/29/2022 Are You Sexually Active? Yes Information not available 06/29/2022 Sex: Unknown Functional Status Question Answer Note LastModified by Organizat ion Details LastModified Time Do you use any illicit or recreational drugs? No Information not available 12/01/2022 Do you or have you ever used any other forms of tobacco or nicotine? No Information not available 12/01/2022 What is your level of alcohol consumption? None Information not available 06/29/2022 Are you able to care for yourself? Yes Information not available 06/29/2022 Mental Status None recorded. Family History Relationship Description Onset Age of this Age Resolved Age Notes LastModified by Organization Details LastModified Time Father Essential hypertension tneuschwander Not available 06/29/2022 15:23:31 Paternal Grandfather Essential hypertension tneuschwander Not available 06/29/2022 15:23:31 Paternal Grandfather Diabetes mellitus tneuschwander Not available 15:23:56 Paternal Grandmother Essential hypertension tneuschwander Not available 06/29/2022 15:23:31 Paternal Grandmother Diabetes mellitus tneuschwander Not available 15:23:56 Medical History No medical history recorded. Gynecological History Statement/Question Response STIs/STDs Age at First Child 21 Sexually Active? Y Obstetrics History GPAL:G 2 P 1 0 0 1 Type Value Full Term 1 Living 1 Total 2 Immunizations Vaccine Type Date Status Note Provider Nam e and Address Organization Details Recorded Time IPV 2 completed [facility] 12:43:40 IPV 6 completed [facility] 12:43:40 IPV 2 completed EARL claros [facility] 09/06/2022 12:43:40 IPV 2 completed TREBA TAVONER null, [facility] 09/06/2022 12:43:40 MMR 3 completed TREBA TAVONER null, [facility] 09/06/2022 12:43:40 MMR 6 completed TREBA NEUROXANNWANDER null, [facility] 09/06/2022 12:43:40 pneumococcal conjugate PCV 7 2 completed AILYNBA PRAFULWAANGIEER null, [facility] 09/06/2022 12:43:40 pneumococcal conjugate PCV 7 2 completed AILYNBA JOSEPH null, [facility] 09/06/2022 12:43:40 pneumococcal conjugate PCV 7 2 completed AILYNBA PRAFULWAANGIEER null, [facility] 09/06/2022 12:43:40 pneumococcal polysaccharide PPV23 3 completed [facility]ILY[facility]BA [facility] 09/06/2022 12:43:40 Tdap 6 completed AILYNBA TAVONER null, [facility] 09/06/2022 12:43:40 varicella 3 completed AILYNBA TAVONER null, [facility] 09/06/2022 12:43:40 Hep B, unspecified formulation 2 completed [facility] 09/06/2022 12:43:40 Hep B, unspecified formulation 2 completed TREBA PRAFULWANDER null, [facility] 09/06/2022 12:43:40 Hep B, adolescent or pediatric 2 completed TREBA NEUSCHWANDER null, [facility] 09/06/2022 12:43:40 Hib (HbOC) 2 completed TREBA NEUSCHWANDER null, [facility] 09/06/2022 12:43:40 Hib (PRP-T) 3 completed TREBA NEUSCHWANDER null, [facility] 09/06/2022 12:43:40 Hib (PRP-T) 2 completed TREBA NEUSCHWANDER null, [facility] 09/06/2022 12:43:40 Hib (PRP-T) 2 completed TREBA NEUSCHWANDER null, [facility] 09/06/2022 12:43:40 meningococcal MCV4P 6 completed TREBA NEUSCHWANDER null, [facility] 09/06/2022 12:43:40 DTaP 3 completed TREBA NEUSCHWANDER null, [facility] 09/06/2022 12:43:40 DTaP 2 completed TREBA NEUSCHWANDER null, [facility] 09/06/2022 12:43:40 DTaP 6 completed TREBA NEUSCHWANDER null, [facility] 09/06/2022 12:43:40 DTaP 2 completed TREBA NEUSCHWANDER null, [facility] 09/06/2022 12:43:40 DTaP 2 completed TREBA NEUSCHWANDER null, [facility] 09/06/2022 12:43:40 Past Encounters Encounter ID Performer Location Encounter Start Date Encounter Closed Date Diagnosis/Indication Diagnosis SNOMED-CT Code Diagnosis ICD10 Code Diagnosis Note [id number] Jabari Olguin MD [facility] ([facility]) [address] [place] [address] [phone] 5 06/29/2022 14:05:10 07/05/2022 12:12:52 [id number] Z33.1 Normal pre gnancy in primigravida 1181172815 17330 O30.91 [id number] Jabari Olguin MD [facility] ([facility]) [address] [place] [address] [phone] 5 08/05/2022 16:51:05 08/05/2022 17:57:51 [id number] GINNA DEMPSEY [facility] ([facility]) [address] [place] [address] [phone] 5 08/18/2022 18:24:27 08/18/2022 18:25:12 TAMARA LOPEZ [facility] ([facility]) [address] [place] [address] [phone] 5 08/19/2022 17:37:02 08/19/2022 17:49:25 Jabari Olguin MD [facility] ([facility]) [address] [place] [address] [id number] 5 08/23/2022 09:55:13 08/23/2022 20:06:59 [id number] Z33.1 Gestation period, 21 weeks 19044204 Z3A.21 Pain of ri ght knee joint 0992427212 79912 M25.561 [id number] Jabari Olguin MD [facility] ([facility]) [address] [place] [address] [id number] 5 09/06/2022 11:51:57 09/06/2022 13:50:32 24291149 Z33.1 Gestation period, 23 weeks 36791036 Z3A.23 Low grade squamous intraepithelial lesion on cervical Papanicolaou smear 6021619006 9105 R87.612 We discussed. She will have a pap after . [id number] Jabari Olguin MD [facility] ([facility]) [address] [place] [address] [id number] 5 09/20/2022 16:51:55 09/20/2022 18:16:13 US obstetric scan abnormal 559939712 O28.3 [id number] Jabari Olguin MD [facility] ([facility]) [address] [place] [address] [phone] 5 09/21/2022 15:30:05 09/30/2022 11:44:27 Normal in multigravida 5224259286 86472 Z34.82 Gestation period, 25 weeks 39535024 Z3A.25 [id number] Jabari Olguin MD [facility] ([facility]) [address] [place] [address] [id number] 5 10/05/2022 12:54:18 10/05/2022 17:57:41 [id number] Z33.1 [id number] Jabari Olguin MD [facility] ([facility]) [address] [place] [address] [id number] 5 10/26/2022 12:23:39 10/26/2022 19:14:16 [id number] Z33.1 Normal 5918806 2 Z34.83 Gestation period, 30 weeks 65017836 Z3A.30 [id number] Jabari Olguin MD [facility] ([facility]) [address] [place] [address] [id number] 5 11/03/2022 11:28:58 11/03/2022 14:47:11 [id number] Z33.1 Normal 4945107 2 Z34.83 Gestation period, 32 weeks 7726271 Z3A.32 Uterine si ze for dates discrepancy 575153018 O26.737 [id number] Jabari Olguin MD [facility] ([facility]) [address] [place] [address] [id number] 5 11/17/2022 11:43:44 11/17/2022 17:39:55 [id number] Z33.1 Normal 6780644 2 Z34.83 [id number] Jabari Olguin MD [facility] ([facility]) [address] [place] [address] [id number] 5 11/17/2022 16:42:41 11/17/2022 17:46:01 [id number] Jabari Olguin MD [facility] ([facility]) [address] [place] [address] [id number] 12/01/2022 11:49:11 12/09/2022 14:13:54 Normal in multigravida 2221422817 01597 Z34.83 Gestation period, 36 weeks 61897686 Z3A.36 [id number] Jabari Olguin MD [facility] ([facility]) [address] [place] [address] [id number] 5 12/07/2022 11:47:42 12/07/2022 15:41:30 Normal in multigravida 5448041802 91944 Z34.83 Gestation period, 36 weeks 80083902 Z3A.36 [id number] Jabari Olguin MD [facility] ([facility]) [address] [place] [address] [id number] 5 12/14/2022 11:21:44 12/14/2022 17:43:19 Normal in multigravida 3087409036 22347 Z34.83 Gestation period, 37 weeks 58511500 Z3A.37 [id number] Jabari Olguin MD [facility] ([facility]) [address] [place] [address] [id number] 5 12/22/2022 11:31:11 12/25/2022 07:03:25 Health Concerns Section Related Observation LastModified by Organization Detai ls LastModified Time None Recorded Concern Status LastModified by Organization Details LastModified Time None Recorded Advance Directives Directive None Recorded Payers Insurance Date Sequence Insurance Name Policy Number Policy Torres Covered Member ID Torres Member ID Guarantor Name 12/19/2022 1 [employer] [place] [place]AC[place] - [place]MO) [id number] Diana Gongora [id number] Diana Gongora 07/30/2022 1 [place] [id number] Diana Gongora [id number] Diana N Gongora Notes Date Note Type Note Provider Name and Address Organization Details Recorded Time 11/17/2022 text/html ob routineRep orted bypatient.Associated Symptoms:no contractions; normal movement; no bleeding; no vaginal discharge; no vaginal/vulvar itching or irritation; no dysuria; no frequency; no fever; no nausea; no emesis; no constipation; no diarrhea/loose stool; no visual changes; no breathlessness;abdomi nal pain;cramping;edema;h eadache;dizziness; back pain Pt denies any alcohol, drug or tobacco use. Jabari Olguin MD [address] [place] [address], [phone], [facility], Shari 12/03/2022 07:39:02 12/01/2022 text/html ob routineRep orted bypatient.Associated Symptoms:no abdominal pain; no cramping; no contractions; normal movement; no bleeding; no vaginal discharge; no vaginal/vulvar itching or irritation; no dysuria; no frequency; no fever; no emesis; no diarrhea/loose stool; no visual changes; no breathlessness;nausea ;constipation;edema;h eadache;dizziness; back pain intermittent, occasional vaginal pressure, heartburn Pt denies any alcohol, drug or tobacco use. Jabari Olguin MD [address] [place] [address], [phone], [facility], Shari 12/03/2022 10:00:46 12/07/2022 text/html ob routineRep orted bypatient.Associated Symptoms:no contractions; normal movement; no bleeding; no vaginal discharge; no vaginal/vulvar itching or irritation; no dysuria; no frequency; no fever; no nausea; no emesis; no diarrhea/loose stool; no visual changes;abdominal pain;cramping;constip ation;edema;headache; dizziness;breathlessn ess; back pain intermittent, occasional vaginal pressure, heartburn Pt denies any alcohol, drug or tobacco use. Jabari Olguin MD [address] [place] [address], [phone], [facility], Shari 12/07/2022 12:24:41 12/14/2022 text/html jr ob routineRep orted bypatient.Associated Symptoms:no contractions; normal movement; no bleeding; no vaginal discharge; no vaginal/vulvar itching or irritation; no dysuria; no frequency; no fever; no nausea; no emesis; no visual changes; no breathlessness;abdomi nal pain;cramping;constip ation;diarrhea/loose stool;edema;headache; dizziness; back pain intermittent, occasional vaginal pressure, heartburn Pt denies any alcohol, drug or tobacco use. 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 Problem Name Start Date End Date Resolution Snomed Code Not e Normal in multigravida 09/21/2022 [id number] Oswaldo Calculation Initial Oswaldo Date Initial Exam Date Initial Exam Provider Initial Ultrasound Date Last Menstrual Period Date Ultra Sound Weeks Gestation 12/29/2022 06/29/2022 05/17/2022 0 Eighteen To Twenty Week Oswaldo Update Ultra Sound Date Fundal Height At Umbil Quickening Date Ultra Sound Latest Weeks Gestation Final Oswaldo Confirmed By Final Oswaldo Confirmed Date Final Oswaldo Date Ultra Sound Latest Days Gestation 0 0 Pre- Flowsheet Flowsheet Date 06/29/2022 Odonnell Score Blood Edema Fundus Height Fundus Units Glucose Ketones Leukocytes Nitrite Labor Signs Protein Cervic Dilation Cervic Effacement Cervic Station none Type Weight in lbs Pre/Post Dialysis Refused Weight 241.362832246634 BP Diastolic BP Location Tested BP Systolic BP Type 74 L arm 128 sitting Fetus Heart Rate Present A 158 Present Fetus Movement Comments NOB Flowsheet Date 08/05/2022 Odonnell Score Blood Edema Fundus Height Fundus Units Glucose Ketones Leukocytes Nitrite Labor Signs Protein Cervic Dilation Cervic Effacement Cervic Station Type Weight in lbs Pre/Post Dialysis Refused BP Diastolic BP Location Tested BP Systolic BP Type Fetus Heart Rate Present Fetus Movement Comments Flowsheet Date 08/09/2022 Odonnell Score Blood Edema Fundus Height Fundus Units Glucose Ketones Leukocytes Nitrite Labor Signs Protein Cervic Dilation Cervic Effacement Cervic Station Type Weight in lbs Pre/Post Dialysis Refused BP Diastolic BP Location Tested BP Systolic BP Type Fetus Heart Rate Present Fetus Movement Comments U/S of 08/05/22 Breech present ation, placenta posterior, grade 0, normal AFV, [id number]-69/23/23, EGA-19.3, RVOT and LVOT not seen, anatomic survey is otherwise normal. Flowsheet Date 08/18/2022 Odonnell Score Blood Edema Fundus Height Fundus Units Glucose Ketones Leukocytes Nitrite Labor Signs Protein Cervic Dilation Cervic Effacement Cervic Station Type Weight in lbs Pre/Post Dialysis Refused BP Diastolic BP Location Tested BP Systolic BP Type Fetus Heart Rate Present Fetus Movement Comments Flowsheet Date 08/19/2022 Odonnell Score Blood Edema Fundus Height Fundus Units Glucose Ketones Leukocytes Nitrite Labor Signs Protein Cervic Dilation Cervic Effacement Cervic Station Type Weight in lbs Pre/Post Dialysis Refused BP Diastolic BP Location Tested BP Systolic BP Type Fetus Heart Rate Present Fetus Movement Comments Flowsheet Date 08/23/2022 Odonnell Score Blood Edema Fundus Height Fundus Units Glucose Ketones Leukocytes Nitrite Labor Signs Protein Cervic Dilation Cervic Effacement Cervic Station 23 cm none none Negative neg Type Weight in lbs Pre/Post Dialysis Refused Weight 249.553346751103 BP Diastolic BP Location Tested BP Systolic BP Type 76 L arm 128 sitting Fetus Heart Rate Present A 150 Present Fetus Movement A Yes Comments shooting pain from right kne e to right hip, numbness on right side from shoulder to knee, abdominal pain, occ cramping, constipation, edema in hands/feet/legs, headache, dizzy spells Flowsheet Date 09/06/2022 Odonnell Score Blood Edema Fundus Height Fundus Units Glucose Ketones Leukocytes Nitrite Labor Signs Protein Cervic Dilation Cervic Effacement Cervic Station none none Negative neg Type Weight in lbs Pre/Post Dialysis Refused Weight 258.902437736545 BP Diastolic BP Location Tested BP Systolic BP Type 76 R arm 124 sitting Fetus Heart Rate Present A 138 Present Fetus Movement Comments pelvic pain, edema to feet, headache, dizziness Flowsheet Date 09/20/2022 Odonnell Score Blood Edema Fundus Height Fundus Units Glucose Ketones Leukocytes Nitrite Labor Signs Protein Cervic Dilation Cervic Effacement Cervic Station Type Weight in lbs Pre/Post Dialysis Refused BP Diastolic BP Location Tested BP Systolic BP Type Fetus Heart Rate Present Fetus Movement Comments Flowsheet Date 09/21/2022 Odonnell Score Blood Edema Fundus Height Fundus Units Glucose Ketones Leukocytes Nitrite Labor Signs Protein Cervic Dilation Cervic Effacement Cervic Station Type Weight in lbs Pre/Post Dialysis Refused BP Diastolic BP Location Tested BP Systolic BP Type Fetus Heart Rate Present Fetus Movement Comments u/s on 09/20/22, follow up. 4 chambered heart noted, the RT and LT outflow tracts are identified on todays study and appear normal. EGA 26.3, OSWALDO 12/24/22. Flowsheet Date 09/21/2022 Odonnell Score Blood Edema Fundus Height Fundus Units Glucose Ketones Leukocytes Nitrite Labor Signs Protein Cervic Dilation Cervic Effacement Cervic Station 26 cm none trace 1+ Type Weight in lbs Pre/Post Dialysis Refused Weight 260.731890245014 BP Diastolic BP Location Tested BP Systolic BP Type 74 L arm 126 sitting Fetus Heart Rate Present A 156 Present Fetus Movement A Yes Comments intermittent nausea, pelvic pain, WETZEL, dizziness Flowsheet Date 10/05/2022 Odonnell Score Blood Edema Fundus Height Fundus Units Glucose Ketones Leukocytes Nitrite Labor Signs Protein Cervic Dilation Cervic Effacement Cervic Station 29 cm none none trace Type Weight in lbs Pre/Post Dialysis Refused Weight 268.130418526920 BP Diastolic BP Location Tested BP Systolic BP Type 74 R arm 130 sitting Fetus Heart Rate Present A 136 Present Fetus Movement A Yes Comments nausea, headache, occ dizzin ess, SOB, low back and pelvic pain Flowsheet Date 10/26/2022 Odonnell Score Blood Edema Fundus Height Fundus Units Glucose Ketones Leukocytes Nitrite Labor Signs Protein Cervic Dilation Cervic Effacement Cervic Station 33 cm none trace Negative neg Type Weight in lbs Pre/Post Dialysis Refused Weight 268.237497741880 BP Diastolic BP Location Tested BP Systolic BP Type 74 120 sitting Fetus Heart Rate Present A 132 Present Fetus Movement Comments abdominal pain/cramping, hea dache, dizziness, constipation, back pain, script given for TDAP Flowsheet Date 11/03/2022 Odonnell Score Blood Edema Fundus Height Fundus Units Glucose Ketones Leukocytes Nitrite Labor Signs Protein Cervic Dilation Cervic Effacement Cervic Station 34 cm none trace Negative trace Type Weight in lbs Pre/Post Dialysis Refused Weight 272.451456720872 BP Diastolic BP Location Tested BP Systolic BP Type 72 124 Fetus Heart Rate Present A 128 Present Fetus Movement A Yes Comments cramping, nausea, headaches, dizziness, back pain Flowsheet Date 11/17/2022 Odonnell Score Blood Edema Fundus Height Fundus Units Glucose Ketones Leukocytes Nitrite Labor Signs Protein Cervic Dilation Cervic Effacement Cervic Station 36 cm none none Negative trace Type Weight in lbs Pre/Post Dialysis Refused Weight 276.010265741393 BP Diastolic BP Location Tested BP Systolic BP Type 70 122 Fetus Heart Rate Present A 156 Present Fetus Movement A Yes Comments abdominal pain occ cramping, pelvic pain, edema to legs, headache, light headed, back pain Flowsheet Date 11/17/2022 Odonnell Score Blood Edema Fundus Height Fundus Units Glucose Ketones Leukocytes Nitrite Labor Signs Protein Cervic Dilation Cervic Effacement Cervic Station Type Weight in lbs Pre/Post Dialysis Refused BP Diastolic BP Location Tested BP Systolic BP Type Fetus Heart Rate Present Fetus Movement Comments Flowsheet Date 11/18/2022 Odonnell Score Blood Edema Fundus Height Fundus Units Glucose Ketones Leukocytes Nitrite Labor Signs Protein Cervic Dilation Cervic Effacement Cervic Station Type Weight in lbs Pre/Post Dialysis Refused BP Diastolic BP Location Tested BP Systolic BP Type Fetus Heart Rate Present Fetus Movement Comments u/s on 11/17/22, OSWALDO 12/21/22 , EGA 35.1, DIONY 16.53, Vertex Flowsheet Date 12/01/2022 Odonnell Score Blood Edema Fundus Height Fundus Units Glucose Ketones Leukocytes Nitrite Labor Signs Protein Cervic Dilation Cervic Effacement Cervic Station 36 cm none trace trace Type Weight in lbs Pre/Post Dialysis Refused Weight 279.931674244715 BP Diastolic BP Location Tested BP Systolic BP Type 80 L arm 128 sitting Fetus Heart Rate Present A Present Fetus Movement A Yes Comments nausea, pelvic pain, occasio nal vaginal pressure, back pain, edema in feet, legs, hands. Grp B done today Flowsheet Date 12/07/2022 Odonnell Score Blood Edema Fundus Height Fundus Units Glucose Ketones Leukocytes Nitrite Labor Signs Protein Cervic Dilation Cervic Effacement Cervic Station 38 cm none none Positive neg Type Weight in lbs Pre/Post Dialysis Refused Weight 282.425231445903 BP Diastolic BP Location Tested BP Systolic BP Type 76 128 sitting Fetus Heart Rate Present A 124 Present Fetus Movement A Yes Comments abdominal pain/cramping, hea dache, dizzy, constipation, edema, sob, low back pain, vaginal pressure, heartburn Flowsheet Date 12/09/2022 Odonnell Score Blood Edema Fundus Height Fundus Units Glucose Ketones Leukocytes Nitrite Labor Signs Protein Cervic Dilation Cervic Effacement Cervic Station Type Weight in lbs Pre/Post Dialysis Refused BP Diastolic BP Location Tested BP Systolic BP Type Fetus Heart Rate Present Fetus Movement Comments GrpB Negative.OB records fax ed Flowsheet Date 12/14/2022 Odonnell Score Blood Edema Fundus Height Fundus Units Glucose Ketones Leukocytes Nitrite Labor Signs Protein Cervic Dilation Cervic Effacement Cervic Station none none neg 2cm 50% -3 Type Weight in lbs Pre/Post Dialysis Refused Weight 284.709461094636 BP Diastolic BP Location Tested BP Systolic BP Type 72 130 sitting Fetus Heart Rate Present A 128 Present Fetus Movement A Yes Comments abd pain, cramping, constipa tion, diarrhea, edema, headache, dizzy, low back pain, heartburn Flowsheet Date 12/17/2022 Odonnell Score Blood Edema Fundus Height Fundus Units Glucose Ketones Leukocytes Nitrite Labor Signs Protein Cervic Dilation Cervic Effacement Cervic Station Type Weight in lbs Pre/Post Dialysis Refused BP Diastolic BP Location Tested BP Systolic BP Type Fetus Heart Rate Present Fetus Movement Comments Healthy Blue RA complete Flowsheet Date 12/22/2022 Odonnell Score Blood Edema Fundus Height Fundus Units Glucose Ketones Leukocytes Nitrite Labor Signs Protein Cervic Dilation Cervic Effacement Cervic Station Type Weight in lbs Pre/Post Dialysis Refused BP Diastolic BP Location Tested BP Systolic BP Type Fetus Heart Rate Present Fetus Movement Comments Menstrual History Last Menstrual Date Menses Monthly On Bcp Conception Prior Menses Frequency Hcg Plus Date Menarche Onset Age Genetic Screening And Infection History Question Response Note Patient's Age Will Be 35 Yea rs Or Older At Estimated Date of Delivery false Thalassemia (Citizen Of [place], Senegalese, Mediterranean, Or Background): MCV < 80 false Neural Tube Defect (Meningom yelocele, Spina Bifida, Or Anencephaly) false Congenital Heart Defect false Down Syndrome false Dominic-Sachs (eg, Catholic, Cajun, Chinese-Pomona) f alse Jay Disease false Sickle Cell Disease Or Trait () false Hemophilia Or Other Blood Disorders false Muscular Dystrophy false Cystic Fibrosis false [place]'s Chorea false Intellectual Disability/Autism false If Yes, Was Person Tested For Fragile X? false Other Inherited Genetic Or Chromosomal Disorder false Maternal Metabolic Disorder (eg, Type 1 Diabetes , PKU) false Patient Or Baby's Father Had A Child With Defects Not Listed Above false Recurrent Loss, Or A Stillbirth false Medications (including Suppl ements, Vitamins, Herbs, OTC Drugs), Illicit/Recreational Drugs, Alcohol false If Yes, Agent(s) And Strength/Dosage false Any Other Genetic History false Live With Someone With TB Or Exposed To TB false Patient Or Partner Has History Of Genital Herpes false Rash Or Viral Illness Since Last Menstrual Perio d false History Of STD, Gonorrhea, Chlamydia, HPV, Syphi lis true chlamydia Other Infection History false History of HIV false History of Hepatitis false Prior GBS-infected child false Hemoglobinopathy Or Carrier false Other Structural Defect false Recent Travel History Outside of Country false Mental Retardation/Autism false Delivery Information Delivery Date Delivery Type Labor Anesthesia Weeks Gestation Incision Type Labor Labor Length Hrs Delivered By Post Complications Tubal Sterilization Discharge Date Comments Discharge Information Feeding Method Contraceptive Method Maternal HG B and HCT Levels Ob Episode Information Episode Created Date Number of Fetuses Patient Bloodtype Patient rh Status Prepregnancy Weight lbs Domestic Partner Domestic Partner Phone Father Name Professor Of Sport Management Status 06/30/19 23 1 CLOSED Fetus Data First Name Last Name Admitted to NICU Weight (g) Sex Living Outcome Pediatric Complications Fetus ID Race Codes Race Delivery Type 2834.95 F 649 VAGINAL Oswaldo Calculation Initial Oswaldo Date Initial Exam Date Initial Exam Provider Initial Ultrasound Date Last Menstrual Period Date Ultra Sound Weeks Gestation 0 Eighteen To Twenty Week Oswaldo Update Ultra Sound Date Fundal Height At Umbil Quickening Date Ultra Sound Latest Weeks Gestation Final Oswaldo Confirmed By Final Oswaldo Confirmed Date Final Oswaldo Date Ultra Sound Latest Days Gestation 0 0 Menstrual History Last Menstrual Date Menses Monthly On Bcp Conception Prior Menses Frequency Hcg Plus Date Menarche Onset Age Delivery Information Delivery Date Delivery Type Labor Anesthesia Weeks Gestation Incision Type Labor Labor Length Hrs Delivered By Post Complications Tubal Sterilization Discharge Date Comments 2 37 induced due to hypertens ion Discharge Information Feeding Method Contraceptive Method Maternal HG B and HCT Levels
--- OUTSIDE RECORDS SUMMARY | 2024-09-09 12:59 | XMS_ITS | Clinical Summary ---
Author Organization [employer] [facility] Address [address] [place]n: Epic Prelude ADT ANTON ARAUJO [address] Care Team Providers Care Dry Talc Racker Name Role Phone Brittanie Aquino [facility] Primary Care Provider [phone] Allergies No known active allergies Medications NIFEdipine (PROCARDIA XL) 90 mg Extended Release 24 hour tablet Take 90 mg by mouth daily. Active vits15/iron/fol ic/dss ( VIT 91-BSOF-PMQET-D SS ORAL) Take by mouth. Active HYDROcodone-aba taminophen (NORCO) 5-325 mg tablet Take 1 Tablet by mouth every 6 hours as needed for Pain. Max Daily Amount: 4 Tablets 12 Tablet 0 02/24/2017 Active amoxicillin (AMOXIL) 500 mg capsule Take 1 Capsule (500 mg) by mouth 3 times daily. 24 Capsule None 02/24/2017 Active ibuprofen (MOTRIN) 200 mg tablet Take 2 Tablets (400 mg) by mouth every 6 hours as needed for Pain. 02/24/2017 Active Social History Tobacco Use Types Packs/Day Years Used Date Smoking Tobacco: Never Smokeless Tobacco: Never Alcohol Use Standard Drinks/Week Comments No 0 (1 standard drink = 0.6 oz pur e alcohol) Comments Yes Sex and Gender Information Value Date Recorded Sex Assigned at Not on file Legal Sex Female 10:01 AM ARABIC LINGUIST Gender Identity Not on file Sexual Orientation Not on file Last Filed Vital Signs Vital Sign Reading Time Taken Comments Blood Pressure 160/91 03/20/2021 2:00 PM ARABIC LINGUIST Pulse 109 03/20/2021 2:00 PM ARABIC LINGUIST Temperature 36.4 C (97.5 F) 03/20/2021 11:38 AM ARABIC LINGUIST Respiratory Rate 18 03/20/2021 11:3 8 AM ARABIC LINGUIST Oxygen Saturation 99% 03/20/2021 2:00 PM ARABIC LINGUIST Inhaled Oxygen Concentration - - Weight 128.3 kg (282 lb 12.8 oz) 2021 11:38 AM ARABIC LINGUIST Height 162.6 cm (5' 4 ) 03/20/2021 11:3 8 AM ARABIC LINGUIST Body Mass Index 48.54 03/20/2021 11:38 AM ARABIC LINGUIST Plan of Treatment Health Maintenance Due Date Last Done Comments CHLAMYDIA SCREENING (ANNUAL) 11-24 YEARS 2012 HPV VACCINES (1 - 3-dose series) 2016 DTAP/TDAP/TD VACCINES (1 - Tdap) 2020 HEPATITIS B VACCINES (1 of 3 - 19+ 3-dose series) 09/2020 CERVICAL CANCER SCREENING 2022 HPV/Cotest (21-29) 2022 PAP SMEAR 2022 INFLUENZA VACCINE (#1) 2024 RSV VACCINE (60+ or ) (1 - 1-dose 75+ series) 2076 Insurance MEDICAID Care Teams Dry Talc Racker Relationship Specialty Start Date End Date Brittanie Aquino FNP [address] [place] [id number] PCP - General NURSE PRACTITIONER 11/29/14
[2024-09-09 13:04] VITALS: BP 134/64; PULSE 125; RESP 18; TEMP 37.1; O2SAT 94; BMI 47.2
--- NOTE | 2024-09-09 15:05 | XRR_ITS ---
PROCEDURE INFORMATION: Exam: XR Chest Exam date and time: 09/09/2024 3:19 PM Age: 24 years old Clinical indication: SOB; Cough; Chest congestion ; pneumonia x 1 week ago TECHNIQUE: Imaging protocol: Radiologic exam of the chest. Views: 1 view. COMPARISON: CR XR chest 2V* [id number] 08/16/2024 3:03 PM FINDINGS: Lungs: Improving aeration in the left infrahilar distribution. No new airspace disease. Low lung volumes. Pleural spaces: Unremarkable. No pleural effusion. No pneumothorax. Heart/Mediastinum: Unremarkable. No cardiomegaly. Bones/joints: Unremarkable. XR/XR chest 1V portable [id number] IMPRESSION: Resolving left infrahilar airspace disease.
--- NOTE | 2024-09-09 15:07 | ED_ITS ---
HPI - Headache 2 General: Chief Complaint: Headache Stated Complaint: headache / stuffed nose / cough Time Seen by Provider: 09/09/24 14:54 Source: patient Mode of arrival: ambulatory Limitations: no limitations History of Present Illness: 24yo female presents with complaints of headache, cough, subjective fever, and generalized not feeling well. Patient reports that she was diagnosed with pneumonia 2 weeks ago and placed on azithromycin and prednisone. Reports that she has had no improvement. States that she was laying in bed this morning with chills, but her significant other reported she was hot to touch. Patient states that she has continued with a cough and feeling bad. She has had no improvement. Patient reports her daughter is sick with a cough, but no other symptoms. She denies difficulty breathing, shortness of breath, chest pain, vomiting, any other concerns at this time. Associated symptoms: Reports fever(s); Deny chest pain or vomiting Related Data Previous Rx's ?Medication ?Instructions ?Recorded citalopram 20 mg tablet (Celexa) 20 mg PO DAILY #30 ta bs 11/30/23 medroxyprogesterone 150 mg/mL 150 mg IM ONCE 90 days # 90 mL 11/30/23 intramuscular suspension (Depo-Provera) norgestimate-ethinyl estradiol 1 tab PO DAILY #84 tabs 11/30/23 0.18mg/0.215mg/0.25mg-0.035mg(28)tablet (Tri-Sprintec (28)) Allergies Allergy/AdvReac Type Severity Reaction Status Date / Time No Known Allergies Allergy Verified 09/09/24 13:08 Review of Systems 2 Const: Reports: fever(s), chills and body aches Card: Denies: chest pain Resp: Reports: non-productive cough; Denies: dyspnea GI: Denies: vomiting Neuro: Reports: headache(s) PFSH ED 2 PFSH: Surgical History Hx of tympanostomy tubes Family History Grandfather Diabetes Grandmother Diabetes Father Hypertension Social History Smoking and tobacco/nicotine status: never used tobacco/nicotine Alcohol intake: never Substance/Drug Use: never Adopted: No Lives independently: Yes Household members: significant other Housing: House Marital status: Single Number of children: 2 Highest education level completed: 9th Grade service: No Current occupational status: unemployed 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 She is sitting upright on the stretcher no acute distress. She is able to give history with no difficulty. She is interactive with exam appropriately. No family is at bedside at time of exam HENMT: COMMON NORMALS: normocephalic and atraumatic HEAD & SCALP: n ormocephalic and atraumatic NOSE: Other nasal findings present (Congested) TYMPANIC MEMBRANE: TM abnormal TM laterality: right (Erythema surrounding TM) Details: dull MOUTH: Normal oral and palatal mucosa present THROAT: a bnormal tonsil (Tonsils 3+ lloyd, normal per patient) Neck/C-Spine: COMMON NORMALS: full ROM Chest: CHEST: Yes Symmetrical chest wall rise Resp: COMMON NORMALS: normal respiratory effort and clear to auscultation bilaterally EFFORT & INSPECTION: Yes able to speak in complete sentences A USCULTATION: clear to auscultation bilaterally OTHER: Dry cough noted throughout exam Cardio: RATE: tachycardic (110 during exam) Extremity: COMMON NORMALS: full ROM Neuro: COMMON NORMALS: patient oriented x3 SENSORIUM/ORIENTATION: Yes alert Psych: COMMON NORMALS: cooperative Course 2 Vital Signs: Vital signs: Vital Signs Temperature 98.8 F 09/09/24 13:04 Pulse Rate 125 H 09/09/24 13:04 Respiratory Rate 18 09/09/24 13:04 Blood Pressure 134/64 09/09/24 13:04 Pulse Oximetry 94 09/09/24 13:04 Oxygen Delivery Me thod Room Air 09/09/24 13:04 MDM - Headache Medical Decision Making 24yo female with a history of tonsillar hypertrophy and MIKE here with 2-week history of cough, congestion, body aches. Patient was treated with azithromycin and prednisone with no improvement. She denies difficulty breathing, shortness of breath, chest pain, abdominal pain, vomiting, diarrhea. Patient is nontoxic in appearance. Vital signs are stable. No leukocytosis, white blood cell count is 8.33. No indication of anemia, hemoglobin is 13.1. No significant electrolyte, renal, or hepatic abnormalities noted. UA with 1+ protein, 1+ ketones, 11-20 epithelial cells, 6-10 white blood cells. 3+ bacteria, but likely contaminated due to the epithelial cells. Not likely to be infection given the negative nitrates, negative leukocyte esterase. Chest x-ray does show a resolving left infiltrate. Discussed all findings with patient. Advised that it does take several weeks to get overt pneumonia. Discussed that she would likely continue to have a cough for several weeks. Encourage patient to avoid respiratory irritants, increase her rest, and increase fluid intake. Recommend follow-up with primary care, call in the next 2 to 3 days with an update of symptoms and to discuss a recheck. Return precautions provided. Patient states understanding and has no further questions or concerns at this time. Medical Records I reviewed the patient's medical records. Lab Data I reviewed the patient's lab results. 09/09/24 15:32 09/09/24 15:32 Radiology Impressions Chest X-Ray 09/09/24 15:05 IMPRESSION: Resolving left infrahilar airspace disease. Laboratory Results WBC 8.33 10^3/uL (3.29-11.43) 09/09/24 15:32 RBC 5.37 10^6/uL (3.85-5.65) 09/09/24 15:32 Hgb 13.10 g/dL (11.27-16.99) 09/09/24 15:32 Hct 42.1 % (36-47) 09/09/24 15:32 MCV 78.4 fl (85-98) L 09/09/24 15:32 MCH 24.4 pg (27-33) L 09/09/24 15:32 MCHC 31.1 g/dL (30-55) 09/09/24 15:32 RDW 14.7 % (12.1-15.1) 09/09/24 15:32 Plt Count 208 10^3/cmm (157-399) 09/09/24 15:32 MPV 10.5 fL (7.4-10.4) H 09/09/24 15:32 Neut % (Auto) 75.3 % 09/09/24 15:32 Lymph % (Auto) 15.6 % 09/09/24 15:32 [place] % (Auto) 7.1 % 09/09/24 15:32 Eos % (Auto) 1.2 % 09/09/24 15:32 Baso % (Auto) 0.4 % 09/09/24 15:32 Neut # (Auto) 6.28 10^3/uL (1.8-7.7) 09/09/24 15:32 Lymph # (Auto) 1.3 10^3/uL (0.8-4.8) 09/09/24 15:32 [place] # (Auto) 0.6 10^3/uL (0.2-0.9) 09/09/24 15:32 Eos # (Auto) 0.1 10^3/uL (0.0-0.8) 09/09/24 15:32 Baso # (Auto) 0.0 10^3/uL (0.0-0.1) 09/09/24 15:32 Nucleated RBC % (auto) 0 % 09/09/24 15:32 Nucleated RBCs # 0.0 /100WBC 09/09/24 15:32 Sodium 135 mmol/L (136-145) L 09/09/24 15:32 Potassium 3.6 mmol/L (3.5-5.1) 09/09/24 15:32 Chloride 100 mmol/L (98-107) 09/09/24 15:32 Carbon Dioxide 22 mmol/L (22-29) 09/09/24 15:32 Anion Gap 16.6 (5-19) 09/09/24 15:32 BUN 5 mg/dL (6-20) L 09/09/24 15:32 Creatinine 0.5 mg/dL (0.5-0.9) 09/09/24 15:32 GFR Calculation 152.9 mL/min (90-130) H 09/09/24 15:32 Glucose 90 mg/dL (65-115) 09/09/24 15:32 Calculated Osmolality 277 mOsm/kg (285-295) L 09/09/24 15:32 Lactic Acid 0.7 mmol/L (0.5-2.2) 09/09/24 15:32 Calcium 8.9 mg/dL (8.5-10.5) 09/09/24 15:32 Total Bilirubin 0.4 mg/dL (0.15-1.2) 09/09/24 15:32 AST 12 U/L (0-32) 09/09/24 15:32 ALT 13 U/L (0-33) 09/09/24 15:32 Alkaline Phosphatase 135 U/L (35-105) H 09/09/24 15:32 Total Protein 7.2 g/dL (6.6-8.7) 09/09/24 15:32 Albumin 3.7 g/dL (3.5-5.2) 09/09/24 15:32 Globulin 3.5 g/dL (1.3-4.6) 09/09/24 15:32 HCG, Qual Negative (Negative) 09/09/24 16:22 Urine Color Dark yellow (Yellow) A 09/09/24 16:22 Urine Appearance Cloudy (CLEAR) A 09/09/24 16:22 Urine pH 6.5 (5-7) 09/09/24 16:22 Ur Specific [place] 1.026 (1.005-1.030) 09/09/24 16:22 Urine Protein 1+ (Negative) A 09/09/24 16:22 Urine Glucose (UA) Negative (Normal) 09/09/24 16:22 Urine Ketones 1+ (Negative) H 09/09/24 16:22 Urine Blood Negative (Negative) 09/09/24 16:22 Urine Nitrate Negative (Negative) 09/09/24 16:22 Urine Bilirubin Negative (Negative) 09/09/24 16:22 Urine Urobilinogen 1.0 mg/dL (Negative) 09/09/24 16:22 Ur Leukocyte Esterase Negative (Negative) 09/09/24 16:22 Urine RBC 3-5 /hpf (0-2) 09/09/24 16:22 Urine WBC 6-10 /hpf (0-5) 09/09/24 16:22 Ur Squamous Epith Cells 11-20 /hpf (0-5) H 09/09/24 16:22 Amorphous Sediment Not Reportable 09/09/24 16:22 Urine Bacteria 3+ /hpf (NONE) H 09/09/24 16:22 Hyaline Casts 0.81 /lpf 09/09/24 16:22 Influenza A (PCR) Negative (Negative) 09/09/24 15:32 Influenza Type B (PCR) Negative (Negative) 09/09/24 15:32 RSV (PCR) Negative (Negative) 09/09/24 15:32 SARS-CoV-2 (PCR) Negative (Negative) 09/09/24 15:32 XR interpretation done by ED provider, pending radiology final review Discharge Plan Discharge Patient Disposition: Home Clinical Impression: Cough Qualifiers: Cough type: acute Qualified Code(s): R05.1 - Acute cough Condition: Stable Prescriptions: No Action medroxyprogesterone [Depo-Provera] 150 mg/mL suspension 150 mg IM ONCE 90 Days Qty: 90 3RF norgestimate-ethinyl estradiol [Tri-Sprintec (28)] 0.18/0.215/0.25 mg-35 mcg (28) tablet 1 tab PO DAILY Qty: 84 3RF citalopram [Celexa] 20 mg tablet 20 mg PO DAILY Qty: 30 5RF Discharge Orders: Discharge ED (Routine); Ordered 09/09/24 Ordered By: Ismael Burrell Referrals: Gopi Rhodes MD [Primary Care Provider, [facility]] Discharge Diet: Usual diet Discharge Activity: Increase activity as tolerated Patient Instructions: Pneumonia (ED), Pain Management, Patient Portal & Maribel Instructions Activity Restrictions/Additional Instructions: No acute concerning abnormalities were noted on your labs today The chest x-ray did show that the pneumonia is improving You will likely have a cough for several weeks Try to increase your fluid intake and increase rest. Follow-up with primary care, call in 2 to 3 days with an update of symptoms and to discuss recheck Return to the emergency department if any rapid worsening symptoms, difficulty breathing, persistent shortness of breath, chest pain, and as needed Print Language: [place]ao [place] Coding Level of Care Code ED Automotive Hardware Engineer for Isaiah Londono
[2024-09-09 15:41] LABS: Hematocrit 42.1 % (36-47); Hemoglobin 13.10 g/dL (11.27-16.99); Mean Corpuscular HGB Conc 31.1 g/dL (30-55); Mean Corpuscular Hemoglobin 24.4 pg (27-33); Mean Corpuscular Volume 78.4 fl (85-98); Nucleated Red Blood Cells % 0 %; Platelet Count 208 10^3/cmm (157-399); Red Blood Count 5.37 10^6/uL (3.85-5.65); White Blood Count 8.33 10^3/uL (3.29-11.43)
[2024-09-09 15:57] LABS: Alanine Aminotransferase 13 U/L (0-33); Albumin Level 3.7 g/dL (3.5-5.2); Alkaline Phosphatase 135 U/L (35-105); Anion Gap 16.6 (5-19); Aspartate Amino Transferase 12 U/L (0-32); Blood Urea Nitrogen 5 mg/dL (6-20); Calcium 8.9 mg/dL (8.5-10.5); Carbon Dioxide 22 mmol/L (22-29); Chloride 100 mmol/L (98-107); Creatinine Clr Calc Pharmacy 228.5007; Globulin 3.5 g/dL (1.3-4.6); Glucose 90 mg/dL (65-115); Lactic Sepsis W/Reflex 0.7 mmol/L (0.5-2.2); Osmolality Calculated 277 mOsm/kg (285-295); Potassium 3.6 mmol/L (3.5-5.1); Sodium 135 mmol/L (136-145); Total Protein 7.2 g/dL (6.6-8.7)
[2024-09-09 16:17] LABS: Respiratory Syncytial Virus Ce NEGATIVE (Negative); SARS-CoV-2 PCR NEGATIVE (Negative)
[2024-09-09 16:29] LABS: HCG Qualitative Urine. Negative (Negative)
[2024-09-09 16:30] LABS: Glucose Urine UA Negative (Normal); Nitrate Urine Negative (Negative); Specific Gravity, Urine 1.026 (1.005-1.030)
[2024-09-09 16:32] LABS: Add Urine Microscopic? YES
== END 2024-09-09 17:19 | disposition home or self-care (01) ==
PROVIDERS: Emergency Provider Nurse Practitioner; PCP Family Medicine
DX: R05.1 Acute cough (principal); Z11.52 Encounter for screening for COVID-19
CPT/HCPCS: 36415; 71045; 80053; 81001; 81025; 83605; 85025; 87637; 96360; 96361; 99284; J7120

== ENCOUNTER → 2024-09-27 15:40 | Outpatient (BNVA) | payer BC, MEDICAID, SELFPAY | PROVIDERS: PCP Nurse Practitioner Family; Visit Provider Nurse Practitioner Family | DX: Z01.89 Encounter for other specified special examinations (principal); Z68.42 Body mass index [BMI] 45.0-49.9, adult | CPT/HCPCS: 80053; 84443 ==

== ENCOUNTER 2024-11-23 23:32 | Emergency (ER) | payer BC, MEDICAID, SELFPAY ==
[2024-11-23 23:37] VITALS: BP 140/92; PULSE 100; RESP 18; TEMP 36.6; O2SAT 98; BMI 45.6
--- OUTSIDE RECORDS SUMMARY | 2024-11-23 23:38 | XMS_ITS | Clinical Summary ---
Author Organization [employer] Address [address] Attn: Epic Prelude ADT ANTON ARAUJO [address] Care Team Providers Care Msw Name Role Phone Brittanie Aquino [facility] Primary Care Provider +1- [phone] Allergies No known active allergies Medications NIFEdipine (PROCARDIA XL) 90 mg Extended Release 24 hour tablet Take 90 mg by mouth daily. Active vits15/iron/fol ic/dss ( VIT 61-[id number]-D SS ORAL) Take by mouth. Active HYDROcodone-aba [...] on file Legal Sex Female 10:01 AM DIRECTOR CRITICAL CARE Gender Identity Not on file Sexual Orientation Not on file Last Filed Vital Signs Vital Sign Reading Time Taken Comments Blood Pressure 160/91 03/20/2021 2:00 PM DIRECTOR CRITICAL CARE Pulse 109 03/20/2021 2:00 PM DIRECTOR CRITICAL CARE Temperature 36.4 C (97.5 F) 03/20/2021 11:38 AM DIRECTOR CRITICAL CARE Respiratory Rate 18 03/20/2021 11:3 8 AM DIRECTOR CRITICAL CARE Oxygen Saturation 99% 03/20/2021 2:00 PM DIRECTOR CRITICAL CARE Inhaled Oxygen Concentration - - Weight 128.3 kg (282 lb 12.8 oz) 2021 11:38 AM DIRECTOR CRITICAL CARE Height 162.6 cm (5' 4 ) 03/20/2021 11:3 8 AM DIRECTOR CRITICAL CARE Body Mass Index 48.54 03/20/2021 11:38 AM DIRECTOR CRITICAL CARE Plan of Treatment Health Maintenance Due Date [...] 75+ series) 2076 Insurance MEDICAID Care Teams Msw Relationship Specialty Start Date End Date Brittanie Aquino FNP [address] [place], [place] [phone] PCP - General NURSE PRACTITIONER 11/29/14
--- OUTSIDE RECORDS SUMMARY | 2024-11-23 23:38 | XMS_ITS | Patient Health Record ---
Author Organization [facility] Address [address] [place] [address] Care Team Providers Care Polytechnic Registrar Name Role Phone Ling Dukes NP Unavailable Unavailable Reason For Referral No Information Problems Problem Type SNOMED Code ICD Code Onset Dates Problem Status W/U Status Risk Notes Problem Injury of right lower leg ([id number]) INJURY OF LOWER EXTREMITY, RIGHT, INITIAL ENCOUNTER (S89.91XA) Inactive confirmed Plan Of Treatment No Information Insurance Providers Payer Name Payer Address Payer Phone Subscriber Number Group Number Insured Name Patient Relationship to Insured Coverage Start Date Coverage End Date HOME STATE [employer]+ [address] [place] [phone] [id number] CALVIN WILDE Self - patient is the insured
[2024-11-24 00:19] LABS: Hematocrit 48.8 % (36-47); Hemoglobin 14.30 g/dL (11.27-16.99); Mean Corpuscular HGB Conc 29.3 g/dL (30-55); Mean Corpuscular Hemoglobin 24.7 pg (27-33); Mean Corpuscular Volume 84.4 fl (85-98); Nucleated Red Blood Cells % 0 %; Platelet Count 288 10^3/cmm (157-399); Red Blood Count 5.78 10^6/uL (3.85-5.65); White Blood Count 11.28 10^3/uL (3.29-11.43)
[2024-11-24 00:34] LABS: Alanine Aminotransferase 17 U/L (0-33); Albumin Level 4.1 g/dL (3.5-5.2); Alkaline Phosphatase 146 U/L (35-105); Anion Gap 19.6 (5-19); Aspartate Amino Transferase 14 U/L (0-32); Blood Urea Nitrogen 11 mg/dL (6-20); Calcium 9.2 mg/dL (8.5-10.5); Carbon Dioxide 21 mmol/L (22-29); Chloride 103 mmol/L (98-107); Creatinine Clr Calc Pharmacy 159.9930; Globulin 3.4 g/dL (1.3-4.6); Glucose 116 mg/dL (65-115); Osmolality Calculated 290 mOsm/kg (285-295); Potassium 3.6 mmol/L (3.5-5.1); Sodium 140 mmol/L (136-145); Total Protein 7.5 g/dL (6.6-8.7)
--- NOTE | 2024-11-24 00:51 | CTR_ITS ---
PROCEDURE INFORMATION: Exam: CT Abdomen And Pelvis With Contrast Exam date and time: 11/24/2024 1:41 AM Age: 24 years old Clinical indication: Abdominal pain; Right; C/O RT flank/groin pain; Additional info: Right flank pain radiating to groin TECHNIQUE: Imaging protocol: Computed tomography of the abdomen and pelvis with contrast. Radiation optimization: All CT scans at this facility use at least one of these dose optimization techniques: automated exposure control; mA and/or kV adjustment per patient size (includes targeted exams where dose is matched to clinical indication); or iterative reconstruction. Contrast material: OMNI 350; Contrast volume: 100 ml; Contrast route: INTRAVENOUS (IV); COMPARISON: [place] [id number] 09/20/2022 4:46 PM RADIATION DOSE METRICS: Total DLP (mGy-cm): 1202.66 FINDINGS: Liver: Fatty infiltration versus 3rd inflow artifact is noted at the anterior falciform ligament. The liver is otherwise within normal limits. Gallbladder and biliary ducts: Normal. No calcified stones. No ductal dilation. Pancreas: Normal. No ductal dilation. Spleen: Normal. No splenomegaly. Adrenal glands: Normal. No mass. Kidneys and ureters: A 3 mm obstructive stone is seen at the right ureterovesical junction (UVJ). Mild right hydronephrosis is present. A delayed right nephrogram is present, consistent with obstructive uropathy. Stomach and bowel: Unremarkable. No obstruction. No mucosal thickening. Appendix: The appendix is normal. Intraperitoneal space: Unremarkable. No free air. No significant fluid collection. Vasculature: Unremarkable. No abdominal aortic aneurysm. Lymph nodes: Unremarkable. No enlarged lymph nodes. Urinary bladder: The urinary bladder is nondistended and poorly characterized. Pseudo wall thickening is present. Reproductive: Unremarkable as visualized. Bones/joints: Unremarkable. No acute fracture. Soft tissues: Unremarkable. CT/CT abdomen pelvis w con* [id number] IMPRESSION: 1. Obstructing 3 mm stone at the right ureterovesical junction (UVJ). 2. Mild right hydronephrosis. 3. A delayed right nephrogram is present, consistent with obstructive uropathy.
[2024-11-24 01:10] VITALS: RESP 22; O2SAT 96
[2024-11-24] MEDS: morphine 4 mg/mL SDV 1 mL 6 MG IVP (01:10)
[2024-11-24] MEDS: ondansetron 2 mg/ML SDV 2 mL 4 MG IVP (01:10)
[2024-11-24 01:11] VITALS: BP 130/83; PULSE 87; RESP 22; O2SAT 95
[2024-11-24 01:17] LABS: Glucose Urine UA Negative (Normal); Nitrate Urine Negative (Negative)
[2024-11-24 01:22] LABS: Add Urine Microscopic? YES
[2024-11-24 01:34] LABS: Specific Gravity, Urine 1.038 (1.005-1.030)
[2024-11-24 01:37] LABS: HCG Qualitative Urine. Negative (Negative)
[2024-11-24] MEDS: iohexol 350 mg/mL 500 mL Btl (per mL) IV (01:43)
[2024-11-24 03:36] VITALS: BP 129/90; PULSE 88; RESP 16; O2SAT 97
--- NOTE | 2024-11-24 04:03 | W.ED.ABDPA2 ---
HPI - Abdominal Pain General: Chief Complaint: Abdominal Pain Stated Complaint: severe back pain, lightheaded, Stomach hurting Time Seen by Provider: 11/24/24 00:34 History of Present Illness: 24 yo F student presented from triage for sudden onset severe pain that began in the back and shot around to the abdomen when getting out of a truck around 9:30. Pt reports pain as 10/10. Nausea present but no vomiting. Pt denies possibility of . Pain was not clearly worsened by palpation per bedside discussion. Prior episodes and history of kidney stones are [Unclear]. No other associated symptoms were discussed. Related Data Previous Rx's ?Medication ?Instructions ?Recorded citalopram 20 mg tablet (Celexa) 20 mg PO DAILY #30 tabs 11/30/23 semaglutide 0.25 mg or 0.5 mg (2 0.25 mg (0.368 mL) SUBCUT .once 10/01/24 mg/3 mL) subcutaneous pen injector weekly #3 mL (Ozempic) ketorolac 10 mg tablet 10 mg PO Q8H PRN pain 5 days #14 11/24/24 tabs ondansetron 4 mg disintegrating 4 mg PO Q8H PRN nausea and 11/24/24 tablet vomiting #10 tabs oxycodone-acetaminophen 5 mg-325 1 tab PO Q8H PRN pain #10 tabs 11/24/24 mg tablet (Percocet) Allergies Allergy/AdvReac Type Severity Reaction Status Date / Time No Known Allergies Allergy Verified 11/23/24 23:40 PFS ED PFSH: Surgical History Hx of tympanostomy tubes Family History Grandfather Diabetes Grandmother Diabetes Father Hypertension Social History Smoking and tobacco/nicotine status: never used tobacco/nicotine Alcohol intake: never Substance/Drug Use: never Adopted: No Lives independently: Yes Household members: significant other Housing: House Marital status: Single Number of children: 2 Highest education level completed: 9th Grade service: No Current occupational status: unemployed 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 Current gender identity: Female Female Reproductive History: Para: 0 Physical Exam Const: COMMON NORMALS: no acute distress, patient oriented x3 and alert HENMT: COMMON NORMALS: normocephalic and atraumatic HEAD & SCALP: normocephalic and atraumatic Eye: COMMON NORMALS: Equal, round and reactive pupils present, EOMs intact bilaterally and no scleral icterus PUPIL: Yes Equal, round and reactive pupils present Resp: COMMON NORMALS: normal respiratory effort and No retractions Cardio: COMMON NORMALS: regular rate, regular rhythm and No murmurs present (Cardio) RATE: regular rate RHYTHM: regular rhythm GI: OTHER: Soft, normal bowel sounds. Pain not reproducible with palpation of right flank/right abdomen/groin. Neuro: COMMON NORMALS: patient oriented x3 SENSORIUM/ORIENTATION: Yes alert Skin: COMMON NORMALS: no rashes or lesions noted GENERAL SKIN EXAM: no rashes or lesions noted Course Vital Signs: Vital signs: Vital Signs Temperature 97.8 F 11/23/24 23:37 Pulse Rate 88 11/24/24 03:36 Respiratory Rate 16 11/24/24 03:36 Blood Pressure 129/90 11/24/24 03:36 Pulse Oximetry 97 11/24/24 03:36 Oxygen Delivery Me thod Room Air 11/24/24 03:36 MDM - Abdominal Pain Medical Decision Making 24 yo F with acute severe back pain that wrapped to the abdomen after getting out of a truck at ~0930. Nausea without emesis; denies . No prior similar events or stone history documented. Vitals: BP 140/92, HR 100, RR 18, Temp 98.7 F, SpO2 98% RA. PE: severe distress; abdomen soft, normal bowel sounds; flank/abdomen/groin pain not reproducible; lungs clear. Kidney stone strongly suspected given abrupt severe [id number] pain pattern. Appendicitis, cholecystitis, and adnexal pathology also considered to be ruled out. No contradictory findings noted on exam. CT scan confirms 3 mm distal right ureteral stone with mild hydronephrosis and swelling. Pain is much better with treatment. Suspect stone will pass spontaneously if it has not already as pain is now close to 0. She will be discharged in stable and improved condition with a short course of pain and nausea medication and follow-up to urology if needed. Case management referral placed for urology nonemergent outpatient referral. Lab Data 11/23/24 23:55 11/23/24 23:55 Labs/Radiology: Radiology Impressions Abdomen/Pelvis CT 11/24/24 00:51 IMPRESSION: 1. Obstructing 3 mm stone at the right ureterovesical junction (UVJ). 2. Mild right hydronephrosis. 3. A delayed right nephrogram is present, consistent with obstructive uropathy. Laboratory Results WBC 11.28 10^3/uL (3.29-11.43) 11/23/24 23:55 RBC 5.78 10^6/uL (3.85-5.65) H 11/23/24 23:55 Hgb 14.30 g/dL (11.27-16.99) 11/23/24 23:55 Hct 48.8 % (36-47) H 11/23/24 23:55 MCV 84.4 fl (85-98) L 11/23/24 23:55 MCH 24.7 pg (27-33) L 11/23/24 23:55 MCHC 29.3 g/dL (30-55) L 11/23/24 23:55 RDW 13.9 % (12.1-15.1) 11/23/24 23:55 Plt Count 288 10^3/cmm (157-399) 11/23/24 23:55 MPV 10.1 fL (7.4-10.4) 11/23/24 23:55 Neut % (Auto) 62.7 % 11/23/24 23:55 Lymph % (Auto) 29.8 % 11/23/24 23:55 [place] % (Auto) 5.7 % 11/23/24 23:55 Eos % (Auto) 1.0 % 11/23/24 23:55 Baso % (Auto) 0.4 % 11/23/24 23:55 Neut # (Auto) 7.08 10^3/uL (1.8-7.7) 11/23/24 23:55 Lymph # (Auto) 3.4 10^3/uL (0.8-4.8) 11/23/24 23:55 [place] # (Auto) 0.6 10^3/uL (0.2-0.9) 11/23/24 23:55 Eos # (Auto) 0.1 10^3/uL (0.0-0.8) 11/23/24 23:55 Baso # (Auto) 0.1 10^3/uL (0.0-0.1) 11/23/24 23:55 Nucleated RBC % (auto) 0 % 11/23/24 23:55 Nucleated RBCs # 0.0 /100WBC 11/23/24 23:55 Sodium 140 mmol/L (136-145) 11/23/24 23:55 Potassium 3.6 mmol/L (3.5-5.1) 11/23/24 23:55 Chloride 103 mmol/L (98-107) 11/23/24 23:55 Carbon Dioxide 21 mmol/L (22-29) L 11/23/24 23:55 Anion Gap 19.6 (5-19) H 11/23/24 23:55 BUN 11 mg/dL (6-20) 11/23/24 23:55 Creatinine 0.7 mg/dL (0.5-0.9) 11/23/24 23:55 GFR Calculation 103.7 mL/min (90-130) 11/23/24 23:55 Glucose 116 mg/dL (65-115) H 11/23/24 23:55 Calculated Osmolality 290 mOsm/kg (285-295) 11/23/24 23:55 Calcium 9.2 mg/dL (8.5-10.5) 11/23/24 23:55 Total Bilirubin 0.2 mg/dL (0.15-1.2) 11/23/24 23:55 AST 14 U/L (0-32) 11/23/24 23:55 ALT 17 U/L (0-33) 11/23/24 23:55 Alkaline Phosphatase 146 U/L (35-105) H 11/23/24 23:55 Total Protein 7.5 g/dL (6.6-8.7) 11/23/24 23:55 Albumin 4.1 g/dL (3.5-5.2) 11/23/24 23:55 Globulin 3.4 g/dL (1.3-4.6) 11/23/24 23:55 HCG, Qual Negative (Negative) 11/24/24 00:50 Urine Color Dark yellow (Yellow) A 11/24/24 00:50 Urine Appearance Turbid (CLEAR) A 11/24/24 00:50 Urine pH 5.0 (5-7) 11/24/24 00:50 Ur Specific [place] 1.038 (1.005-1.030) H 11/24/24 00:50 Urine Protein 1+ (Negative) A 11/24/24 00:50 Urine Glucose (UA) Negative (Normal) 11/24/24 00:50 Urine Ketones Negative (Negative) 11/24/24 00:50 Urine Blood 3+ (Negative) A 11/24/24 00:50 Urine Nitrate Negative (Negative) 11/24/24 00:50 Urine Bilirubin 1+ (Negative) H 11/24/24 00:50 Urine Urobilinogen 1.0 mg/dL (Negative) 11/24/24 00:50 Ur Leukocyte Esterase Trace (Negative) A 11/24/24 00:50 Urine RBC >100 /hpf (0-2) H 11/24/24 00:50 Urine WBC 6-10 /hpf (0-5) 11/24/24 00:50 Ur Squamous Epith Cells 21-50 /hpf (0-5) H 11/24/24 00:50 Amorphous Sediment Not Reportable 11/24/24 00:50 Urine Bacteria 4+ /hpf (NONE) H 11/24/24 00:50 Hyaline Casts 0.40 /lpf 11/24/24 00:50 All radiology interpretation(s) finalized by discharge Discharge Plan Discharge Patient Disposition: Home Condition: Stable Prescriptions: New ketorolac 10 mg tablet 10 mg PO Q8H PRN (Reason: pain) 5 Days Qty: 14 0RF oxycodone-acetaminophen [Percocet] 5-325 mg tablet 1 tab PO Q8H PRN (Reason: pain) Qty: 10 0RF ondansetron 4 mg tablet,disintegrating 4 mg PO Q8H PRN (Reason: nausea and vomiting) Qty: 10 0RF No Action citalopram [Celexa] 20 mg tablet 20 mg PO DAILY Qty: 30 5RF Ozempic 0.25 mg or 0.5 mg (2 mg/3 mL) pen injector 0.25 mg SUBCUT .once weekly Qty: 3 0RF Discharge Orders: Discharge ED (Routine); Ordered 11/24/24 Ordered By: Juan Luis Whatley Referrals: Camron,Nikki, RUBBER COMPOUNDER FORMULATOR-C [Primary Care Provider, Family Practice] Discharge Diet: Usual diet Patient Instructions: Ureteral Stones (ED), Patient Portal & Maribel Instructions Print Language: Mongolian Coding Level of Care Code ED Potato Chip Sacking Machine Operator for Isaiah Londono
== END 2024-11-24 04:18 | disposition home or self-care (01) ==
PROVIDERS: Emergency Provider Student in an Organized Health Care Education/Training Program; PCP Nurse Practitioner Family
DX: N13.0 Hydronephrosis with ureteropelvic junction obstruction (principal)
CPT/HCPCS: 36415; 74177; 80053; 81001; 81025; 85025; 87086; 96374; 96375; 99285; J1885; J2270; J2405; J7030

== ENCOUNTER 2025-02-25 01:08 | Emergency (ER) | payer BC, MEDICAID, SELFPAY ==
--- OUTSIDE RECORDS SUMMARY | 2025-02-25 01:12 | XMS_ITS | Encounter Summary ---
Author Organization [facility] Address [address] [place] [address] Care Team Providers Care Hosiery Operator Name Role Phone Brittanie Aquino Primary Care Provider [phone] Encounter Details Date Type Department Care Team (Late st Contact Info) Description 02/19/2025 External Device Data [facility] ABSTRACTION Provider, Abstract NO ADDRESS ON FILE Social History Tobacco Use Types Packs/Day Years Used Date Smoking Tobacco: Never Smokeless Tobacco: Never Alcohol Use Standard Drinks/Week Comments No 0 (1 standard drink = 0.6 oz pur e alcohol) Comments Yes Sex and Gender Information Value Date Recorded Sex Assigned at Not on file Legal Sex Female 10:01 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
--- OUTSIDE RECORDS SUMMARY | 2025-02-25 01:12 | XMS_ITS | Data Portability ---
Author Organization [facility]EleanorLXavier, MARQUITAFiliberto [facility] Address [address] [address] Care Team Providers Care Sales And Merchandising Representative Name Role Phone SHERLYN CERVANTES Primary Care Provider Assessment Encounter Date Assessment Date Assessment LastModified by Organization Details LastModified Time 12/31/2024 12/31/2024 24 year old female with history of hypertension during previous presenting with initial obstetric visit for confirmed . The estimated due date is based on initial ultrasound findings. The patient should be monitored closely for hypertensive complications, as experienced in her past . Previous epidural complications and recurrent acid reflux should be managed and monitored throughout the current . [email or web address] Not available 01/01/2025 10:55:45 01/28/2025 01/28/2025 - 24-year-old female for KARRIE and elevated blood pressure presenting with routine supervision for multigravida in the first trimester. Hypertension In : - Monitoring at home with potential management to be discussed if blood pressure increases. [email or web address] Not available 01/29/2025 17:37:04 Plan of Treatment Reminders Order Date Submit Date Provider Last Modified By Organization Details Last Modified Time Details Appointments RETURN OB 2024 10:30A M Sherlyn Cervantes MD Not available Not available Not available RETURN OB 2025 10:30A M Sherlyn Cervantes MD Not available Not available Not available ULTRASO UND 2025 10:30A M ULTRASOUND Not available Not available Not available RETURN OB 2025 10:30A M Sherlyn Cervantes MD Not available Not available Not available RETURN OB 2025 10:30A M Sherlyn Cervantes MD Not available Not available Not available RETURN OB 2025 10:30A M Sherlyn Cervantes MD Not available Not available Not available RETURN OB 2025 10:30A M Sherlyn Cervantes MD Not available Not available Not available RETURN OB 2025 10:30A M Sherlyn Cervantes, MD Not available Not available Not available RETURN OB 2025 10:30A M Sherlyn Calvose, MD Not available Not available Not available RETURN OB 2025 10:30A M Sherlyn Lubnase, MD Not available Not available Not available RETURN OB 2025 10:30A M Sherlyn Lubnase, MD Not available Not available Not available RETURN OB 2025 10:15A M Sherlyn Calvose, MD Not available Not available Not available RETURN OB 2025 10:30A M Sherlyn Cervantes MD Not available Not available Not available RETURN OB 2025 10:30A M Sherlyn Cervantes MD Not available Not available Not available Lab RPR (rapid plasma reagin) , serum 2024 025 [facility], [address] [place] [address], [address], [place], [address], 02/08/2025 14:18:33 CBC w/ auto diff 2024 025 [facility] [place] [address], [address], [place], [address], 02/08/2025 14:18:30 hepatit is C virus Ab, serum 2024 [address] [facility] [address], [address], [place], [address], 02/08/2025 14:18:31 HIV 1+2 Ab + HIV1 p24 Ag, quantit ative immunoa ssay, serum 2024 [address] [facility] [address], [address], [place], [address], 02/08/2025 14:18:29 antibod y screen, serum or plasma 2024 [facility], [address] [place] [address], [address], [place], [address], 02/08/2025 14:18:34 abo group + rh type, blood 2024 [facility], [address] [place] [address], [address], [place], [address], 02/08/2025 14:18:34 HBsAg (hepati tis B surface Ag), serum 2024 [facility], [address] [place] [address], [address], [place], [address], 02/08/2025 14:18:31 rubella igg Ab screen, serum 2024 [facility], [address] [place] [address], [address], [place], [address], 02/08/2025 14:18:31 urinaly sis, complet e 2024 [facility], [address] [place] [address], [address], [place], [address], 02/08/2025 14:18:29 culture , urine 2024 [facility], [address] [place] [address], [address], [place], [address], 02/08/2025 14:18:36 drug screen, urine 2024 [facility], [address] [place] [address], [address], [place], [address], 02/08/2025 14:18:35 CT + NG RNA, PCR, unspeci fied specime n 2024 [facility], [address], [address], [place], [address], 02/08/2025 14:18:33 unliste d lab - qnatal( R) advance d 2024 [facility], [address], [address], [place], [address], 02/08/2025 14:18:32 Referral None recorde d. Procedures None recorde d. Surgeries None recorde d. Imaging US, obstetr ic, 1st trimest er - [id number] 2024 [facility], [address] [place], [address], 01/07/2025 16:24:42 Medication Orders None recorde d. Patient TargetsNo targets recorded. Patient Instructions Encounter Date Encounter Id Patient Instructions Last Modified By Organization Details Last Modified Time 12/31/2024 [id number] - Schedule follow-up ultrasound before next visit - Attend visits every four weeks - Monitor blood pressure regularly at home - Take Pepcid if needed for acid reflux; consider dietary changes - Contact the office immediately if experiencing any severe symptoms - Plan for genetic screening after 10 weeks if desired [email or web address] Not available 12/31/2024 12:14:27 During the consultation, I explained the importance of confirming the due date with an additional ultrasound given the uncertainty with previous findings. We discussed the management plan for her , given the history of hypertension, emphasizing the importance of regular monitoring and potential need for intervention. I also reviewed safe medication practices during , specifically addressing the management of acid reflux and the safety of using Pepcid. We discussed options and considerations regarding anesthesia during delivery, particularly concerning her previous complications with epidurals. We planned for regular follow-ups, labs including genetic screenings, and emphasized the need for active communication regarding any concerns throughout the . [email or web address] Not available 12/31/2024 12:14:28 01/28/2025 [id number] - Monitor blood pressure at home and record readings regularly. - Return for bloodwork next week for cell-free DNA testing. - Stay hydrated, especially before bloodwork. - Report any significant increases in blood pressure or new symptoms. - Follow up for visits as scheduled without needing to make a lab appointment beforehand. [email or web address] Not available 01/28/2025 11:52:36 During the consultation, I explained the importance of closely monitoring blood pressure in light of her previous experience with hypertension and early signs of pre-eclampsia. I discussed the appropriate timeline and protocol for conducting cell-free DNA testing, advising that it will be available for completion after 10 weeks of gestation. The patient was informed that further evaluation of heart sounds is scheduled for the next visit. I emphasized the importance of hydration prior to her lab visit to facilitate the blood draw. We also discussed the importance of obtaining a home blood pressure monitor to enable frequent readings between office visits. [email or web address] Not available 01/28/2025 11:52:37 Reason for Referral None Reported. Results Created Date Observation Date Name Description Value Unit Range Abnormal Flag Note LastModifiedBy Organization Detail LastModifiedTime 12/02/1912/04/2022 STREP TOCOC CUS, GROUP B CULTU RE streptococcu s, group B culture SEE NOTE STREP TOCOC CUS, GROUP B CULTU RE Micro Numbe r: [id number] Test Statu s: Final Speci men Sourc e: Vagin al/an orect al Speci men Quali ty: Adequ ate Resul t: No group B Strep tococ cus isola nba Note per CDC guide lines optim al recov mireya is achie eddie by swabb ing both the lower vagin a and rectu m (thro ugh the anal sphin cter) . Not Available [facility] [address] , [place], [address], 12/04/2022 08:11:57 02/05/2002/08/2025 HIV 1/2 ANTIG EN/AN TIBOD Y,FOU RTH GENER ATION W/RFL HIV final interpretati on HIV NEGATI VE normal HIV-1 antig en and HIV-1 /HIV- 2 antib odies were not detec bna. There is no labor atory evide nce of HIV infec tion. Not Available [facility] [address], [place], [address], 02/08/2025 14:18:29 02/05/2002/08/2025 HIV 1/2 ANTIG EN/AN TIBOD Y,FOU RTH GENER ATION W/RFL HIV Ag/Ab, screen NON-RE ACTIVE non-re active normal Not Available [address], [address], 02/08/2025 14:18:29 02/05/20 25 02/08/2025 URINA LYSIS , COMPL ETE color DARK YELLOW yellow normal Not Available [address], [address], 02/08/2025 14:18:29 02/05/2002/08/2025 URINA LYSIS , COMPL ETE appearance CLOUDY clear abnormal Not Available [address], [address], 02/08/2025 14:18:29 02/05/2002/08/2025 URINA LYSIS , COMPL ETE specific gravity 1.031 1.001- 1.035 normal Not Available [address], [address], 02/08/2025 14:18:29 02/05/20 25 02/08/2025 URINA LYSIS , COMPL ETE pH 6.5 5.0-8. 0 normal Not Available [address], [address], 02/08/2025 14:18:29 02/05/20 25 02/08/2025 URINA LYSIS , COMPL ETE glucose NEGATI VE negati ve normal Not Available [address], [address], 02/08/2025 14:18:29 02/05/20 25 02/08/2025 URINA LYSIS , COMPL ETE bilirubin NEGATI VE negati ve normal Not Available [address], [address], 02/08/2025 14:18:29 02/05/20 25 02/08/2025 URINA LYSIS , COMPL ETE ketones TRACE negati ve abnormal Not Available [address], [address], 02/08/2025 14:18:29 02/05/20 25 02/08/2025 URINA LYSIS , COMPL ETE occult blood NEGATI VE negati ve normal Not Available [address], [address], 02/08/2025 14:18:29 02/05/20 25 02/08/2025 URINA LYSIS , COMPL ETE protein TRACE negati ve abnormal Not Available [address], [address], 02/08/2025 14:18:29 02/05/20 25 02/08/2025 URINA LYSIS , COMPL ETE nitrite NEGATI VE negati ve normal Not Available [address], [address], 02/08/2025 14:18:29 02/05/20 25 02/08/2025 URINA LYSIS , COMPL ETE leukocyte esterase NEGATI VE negati ve normal Not Available [address], [address], 02/08/2025 14:18:29 02/05/20 25 02/08/2025 URINA LYSIS , COMPL ETE WBC 0-5 /hpf < or = 5 normal Not Available [address], [address], 02/08/2025 14:18:29 02/05/20 25 02/08/2025 URINA LYSIS , COMPL ETE RBC 0-2 /hpf < or = 2 normal Not Available [address], [address], 02/08/2025 14:18:29 02/05/20 25 02/08/2025 URINA LYSIS , COMPL ETE squamous epithelial cells 10-20 /hpf < or = 5 abnormal Not Available [address], [address], 02/08/2025 14:18:29 02/05/20 25 02/08/2025 URINA LYSIS , COMPL ETE bacteria MANY /hpf none seen abnormal Not Available [address], [address], 02/08/2025 14:18:29 02/05/20 25 02/08/2025 URINA LYSIS , COMPL ETE calcium oxalate crystals MODERA TE /hpf none or few abnormal Not Available [address], [address], 02/08/2025 14:18:29 02/05/20 25 02/08/2025 URINA LYSIS , COMPL ETE hyaline cast NONE SEEN /lpf none seen normal Not Available [address], [address], 02/08/2025 14:18:29 02/05/20 25 02/08/2025 URINA LYSIS , COMPL ETE note This urine was marii zed for the prese nce of WBC, RBC, bacte brenda, casts , and other forme d eleme nts. Only those eleme nts seen were repor nba. Not Available [address], [address], 02/08/2025 14:18:29 02/05/20 25 02/08/2025 CBC (INCL UDES DIFF/ PLT) white blood cell count 8.6 thous and/u L 3.8-10 .8 normal Not Available [address], [address], 02/08/2025 14:18:30 02/05/20 25 02/08/2025 CBC (INCL UDES DIFF/ PLT) red blood cell count 5.30 yariel on/uL 3.80-5 .10 high Not Available [address], [address], 02/08/2025 14:18:30 02/05/20 25 02/08/2025 CBC (INCL UDES DIFF/ PLT) hemoglobin 13.2 g/dL 11.7-1 5.5 normal Not Available [address], [address], 02/08/2025 14:18:30 02/05/20 25 02/08/2025 CBC (INCL UDES DIFF/ PLT) hematocrit 41.8 % 35.9-4 6.0 normal Not Available [address], [address], 02/08/2025 14:18:30 02/05/20 25 02/08/2025 CBC (INCL UDES DIFF/ PLT) MCV 78.9 fL 81.4-1 01.7 low Not Available [address], [address], 02/08/2025 14:18:30 02/05/20 25 02/08/2025 CBC (INCL UDES DIFF/ PLT) MCH 24.9 pg 27.0-3 3.0 low Not Available [address], [address], 02/08/2025 14:18:30 02/05/20 25 02/08/2025 CBC (INCL UDES DIFF/ PLT) MCHC 31.6 g/dL 31.6-3 5.4 normal For adult s, a sligh t decre ase in the calcu lated MCHC value (in the range of 30 to 32 g/dL) is most likel y not clini jorge signi ashley t; mark er, it shoul d be inter prete d with cauti on in corre lat n with other red cell pam eters and the patie nt's clini em condi tion. Not Available [address], [address], 02/08/2025 14:18:30 02/05/20 25 02/08/2025 CBC (INCL UDES DIFF/ PLT) RDW 13.2 % 11.0-1 5.0 normal Not Available [address], [address], 02/08/2025 14:18:30 02/05/20 25 02/08/2025 CBC (INCL UDES DIFF/ PLT) platelet count 230 thous and/u L 140-40 0 normal Not Available [address], [address], 02/08/2025 14:18:30 02/05/20 25 02/08/2025 CBC (INCL UDES DIFF/ PLT) MPV 11.4 fL 7.5-12 .5 normal Not Available [address], [address], 02/08/2025 14:18:30 02/05/20 25 02/08/2025 CBC (INCL UDES DIFF/ PLT) absolute neutrophils 6347 cells /uL 1500-7 800 normal Not Available [address], [address], 02/08/2025 14:18:30 02/05/20 25 02/08/2025 CBC (INCL UDES DIFF/ PLT) absolute lymphocytes 1703 cells /uL 850-39 00 normal Not Available [address], [address], 02/08/2025 14:18:30 02/05/20 25 02/08/2025 CBC (INCL UDES DIFF/ PLT) absolute monocytes 396 cells /uL 200-95 0 normal Not Available [address], [place], [address], 02/08/2025 14:18:30 02/05/20 25 02/08/2025 CBC (INCL UDES DIFF/ PLT) absolute eosinophils 112 cells /uL 15-500 normal Not Available [facility] [address], [address], 02/08/2025 14:18:30 02/05/20 25 02/08/2025 CBC (INCL UDES DIFF/ PLT) absolute basophils 43 cells /uL 0-200 normal Not Available [facility] [address], [address], 02/08/2025 14:18:30 02/05/20 25 02/08/2025 CBC (INCL UDES DIFF/ PLT) neutrophils 73.8 % normal Not Available [facility] [address], [address], 02/08/2025 14:18:30 02/05/20 25 02/08/2025 CBC (INCL UDES DIFF/ PLT) lymphocytes 19.8 % normal Not Available [facility] [address], [address], 02/08/2025 14:18:30 02/05/20 25 02/08/2025 CBC (INCL UDES DIFF/ PLT) monocytes 4.6 % normal Not Available [facility] [address], [address], 02/08/2025 14:18:30 02/05/20 25 02/08/2025 CBC (INCL UDES DIFF/ PLT) eosinophils 1.3 % normal Not Available [facility] [address], [address], 02/08/2025 14:18:30 02/05/20 25 02/08/2025 CBC (INCL UDES DIFF/ PLT) basophils 0.5 % normal Not Available [facility] [address], [address], 02/08/2025 14:18:30 02/05/20 25 02/08/2025 HEPAT ITIS B SURFA CE ANTIG EN W/REF L CONFI RM hepatitis B surface antigen NON-RE ACTIVE non-re active normal For addit ional [facility] beaul[facility], rhoda e refer to http: //[facility] stdia gnost ics.c om/fa q/FAQ 202 (This link is being provi ded for infor [facility] nal/ educa nela l purpo ses only. ) Not Available [facility] [address], [address], 02/08/2025 14:18:30 02/05/20 25 02/08/2025 HEPAT ITIS C AB W/REF L TO HCV RNA, QN, PCR hepatitis C antibody NON-RE ACTIVE non-re active normal HCV antib bereket was non-r eacti ve. There is no labor atory evide nce of HCV infec tion. In most cases , no furth er actio n is requi red. Howev er, if recen t HCV expos ure is suspe cted, a test for HCV RNA (test code 68228 ) is sugge sted. For addit ional [facility] abilio duong e refer to http: //[facility] stdia gnost ics.c om/fa q/FAQ 22v1 (This link is being provi ded for infor matio nal/ educa nela l purpo ses only. ) Not Available [facility] [address] [place], [address], 02/08/2025 14:18:31 02/05/20 25 02/08/2025 RUBEL LA AB (IGG) , IMMUN E STATU S rubella Ab (IgG), immune status 1.46 index normal Index Inter preta tion ----- ----- ----- ---- <0.90 Not consi stent with immun ity 0.90- 0.99 Equiv ocal > or = 1.00 Consi stent with immun ity The prese nce of rubel la IgG antib bereket sugge sts immun izati on or past or curre nt infec tion with rubel la virus . Not Available [address], [address], 02/08/2025 14:18:31 02/05/20 25 02/08/2025 QNATA L(R) ADVAN LACHO number of fetuses? 1 Not Available [facility] [address] [place], [address], 02/08/2025 14:18:32 02/05/20 25 02/08/2025 QNATA L(R) ADVAN LACHO advanced maternal age? NO Not Available [address], [address], 02/08/2025 14:18:32 02/05/20 25 02/08/2025 QNATA L(R) ADVAN LACHO abnormal scott? NO Not Available [address], [address], 02/08/2025 14:18:32 02/05/20 25 02/08/2025 QNATA L(R) ADVAN LACHO abnormal US? NO Not Available [address] [place], [address], 02/08/2025 14:18:32 02/05/20 25 02/08/2025 QNATA L(R) ADVAN LACHO personal/fam history? NO Not Available [facility] [address] [place], [address], 02/08/2025 14:18:32 02/05/20 25 02/08/2025 QNATA L(R) ADVAN LACHO interpretati on SEE NOTE This speci men showe d an expec nba repre senta tion of chrom osome 21, 18, and 13 mater ial. See Maria T chicas below . Not Available [facility] [address], [address], 02/08/2025 14:18:32 02/05/20 25 02/08/2025 QNATA L(R) ADVAN LACHO trisomy 21 (T21) NEGATI VE Not Available [facility] [address], [address], 02/08/2025 14:18:32 02/05/20 25 02/08/2025 QNATA L(R) ADVAN LACHO trisomy 18 (T18) NEGATI VE Not Available [facility] [address], [address], 02/08/2025 14:18:32 02/05/20 25 02/08/2025 QNATA L(R) ADVAN LACHO trisomy 13 (T13) NEGATI VE Not Available [address], [address], 02/08/2025 14:18:32 02/05/20 25 02/08/2025 QNATA L(R) ADVAN LACHO Y chromosome NOT DETECT ED Not Available [address], [address], 02/08/2025 14:18:32 02/05/20 25 02/08/2025 QNATA L(R) ADVAN LACHO Y chr. interpretati on SEE NOTE Consi stent with a femal e fetus . Not Available [address], [address], 02/08/2025 14:18:32 02/05/20 25 02/08/2025 QNATA L(R) ADVAN LACHO sex chromosome NO ANEUPL OIDY Not Available [address], [address], 02/08/2025 14:18:32 02/05/20 25 02/08/2025 QNATA L(R) ADVAN LACHO sex chromosome interp SEE NOTE No appar ent abnor malit y was detec nba. See Limi tatio ns below . Not Available [facility] [address], [address], 02/08/2025 14:18:32 02/05/20 25 02/08/2025 QNATA L(R) ADVAN LACHO microdeletio n NOT DETECT ED Not Available [address], [address], 02/08/2025 14:18:32 02/05/20 25 02/08/2025 QNATA L(R) ADVAN LACHO microdeletio n interp SEE NOTE No appar ent abnor malit y was detec nba. See Limi tatio ns below . Not Available [address], [address], 02/08/2025 14:18:32 02/05/20 25 02/08/2025 QNATA L(R) ADVAN LACHO gestational age(in weeks) 10 Not Available [address], [address], 02/08/2025 14:18:32 02/05/20 25 02/08/2025 QNATA L(R) ADVAN LACHO gestational age (in days) 3 Not Available [address], [address], 02/08/2025 14:18:32 02/05/20 25 02/08/2025 QNATA L(R) ADVAN LACHO fraction 6.24% Not Available [address], [address], 02/08/2025 14:18:32 02/05/20 25 02/08/2025 QNATA L(R) ADVAN LACHO laboratory comments SEE NOTE Labor atory testi ng super vised and resul ts monit ored by Yeison De Los Santos, Ph.D. , FACMG , HCLD, CGMB. Not Available [facility] [address], [place], [address], 02/08/2025 14:18:32 02/05/20 25 02/08/2025 QNATA L(R) ADVAN LACHO limitations SEE NOTE QNata l(R) Advan lacho is a cell- free DNA scree tarik test that scree ns for incre ased risk of certa in chrom osoma l abnor malit ies that may cause defec ts, inclu ding Triso my 21 (Down syndr ome), Triso my 18 (Edwa rds Syndr ome), Triso my 13 (Pata u Syndr ome), and certa in sex chrom osome abnor malit ies (i.e. , 45,X, 47,XX Y, 47,XX X, and 47,XY Y), as well as sex. In addit ion, if selec nba as an optio n, QNata l(R) Advan lacho can scree n for certa in micro delet ions (i.e. , 22q, 5p, 1p36, 15q, 11q, 8q, and 4p) that may cause defec ts. QNata l(R) Advan lacho, Micro dels has been valid ated in singl eton pregn ancie s for the triso mies, sex chrom osome abnor malit ies and for the micro delet ions liste d above , as well as for the deter minat ion of sex. This scree tarik test has also been valid ated in twin pregn ancie s for the triso mies liste d above and for micro delet ions, but not for the sex chrom osome abnor malit ies due to limit ed data. This scree tarik test has not been valid ated in highe r order pregn ancie s (more than two) becau se limit ed data is avail able. Micro delet ion scree tarik is limit ed to the speci fied micro delet ion regio ns (see Meth odolo gy ). The Y chrom osome is marii zed for the deter minat ion of sex. The sensi tivit y and speci ficit y of sex deter minat ion marii sis may be less than that of the Triso my 21, 18, and 13 marii sis and this deter minat ion can be confo unded by vanis luis armando twin syndr ome in pregn ancie s that were origi stacy multi ple gesta tion pregn ancie s. It shoul d be noted that QNata l(R) Advan lacho is a quant itati ve marii sis of mater nal and place ntal cfDNA . As a resul t, the accur acy of scree tarik resul ts may be affec nba by the prese nce of chrom osome abnor malit ies or micro delet ions that are mater nal or confi hemanth place ntal in origi n. An incid ental findi ng may be repor nba when the findi ng precl udes categ orizi ng a targe nba condi tion or indic ates a mater nal condi tion. False posit shilpa findi ngs invol ving the exami hemanth chrom osome s may be due to mater nal, place ntal, or mosai cism, by vanis luis armando twin syndr ome, or other unexp merary d cause s. Prena trinidad cell- free DNA scree tarik does not repla ce the preci lucero of diagn osis using chori onic villu s sampl ing or amnio cente sis. This scree tarik test does not asses s the risk of anoma lies such as neura l tube defec ts or ventr al wall defec ts and shoul d not be consi dered in isola tion from other clini em findi ngs and labor atory test resul ts. As this is a scree tarik test, it is not inten ded to be used for diagn ostic purpo ses. Scree tarik resul ts that are posi tive or indic ate incr eased risk mean that the fetus is at highe r risk for havin g the disor paola jojo red with the gener al popul ation . These resul ts shoul d be follo wed by yefri ic couns eling and furth er diagn ostic testi ng and proce dures , when clini jorge indic ated. Irrev ersib le pregn roula manag ement decis ions shoul d not be based solel y on the resul ts of prena trinidad cell- free DNA scree tarik. Scree tarik resul ts that are nega tive or indic ate reduc ed risk do not ensur e that the curre nt pregn roula is not affec nba by a yefri ic abnor malit y. Patie nts whose resul ts are not repor nba, or are repor nba as indet ermin ate or unint erpre table , shoul d recei ve yefri ic couns eling and, when clini jorge indic ated, shoul d consi paola diagn ostic proce dures . False posit shilpa and false negat shilpa resul ts may occur . Healt hcare provi ders are respo nsibl e for the use of this infor abilio beaulieu in the manag ement of their patie nts. All resul ts shoul d be inter prete d in the german xt of perti nent clini em findi ngs, relev ant obste tric histo ry and labor atory data based on a clear under stand ing of the value and limit ation s of the test data. Not Available [facility] [address] [place], [address], 02/08/2025 14:18:32 02/05/2002/08/2025 QNATA L(R) ADVAN LACHO specificatio ns SEE NOTE Sensi tivit y Speci ficit y T21 >99.9 % >99.9 % T18 >99.9 % >99.9 % T13 >99.9 % >99.9 % Accur acy Y >99.9 % Perfo rmanc e of the QNata l Advan lacho labor atory -deve loped test (LDT) has been deter mined based on inter nal marii tical asses sment . Not Available [facility] [address] [place], [address], 02/08/2025 14:18:32 02/05/2002/08/2025 QNATA L(R) ADVAN LACHO methodology SEE NOTE Circu latin g cell- free (cf) DNA was isola nba from plasm a follo wed by detec tion on a massi vely paral lel seque ncing platf orm. Bioin forma tic marii sis was perfo rmed to deter mine the repre senta tion of chrom osome s 21, 18, 13, X and Y in circu latin g cell- free DNA. The repre senta tion of seque nces from the criti em regio ns invol eddie in 1p36 micro delet ion syndr ome (1p36 ), Zamorano- Hirsc hhorn syndr ome (4p), Cri-d u-michael t syndr ome (5p), Manzo r-Gie john syndr ome (8q), Arpan sen syndr ome (11q) , Prade r Willi syndr ome/A ngelm an syndr ome (15q) , and DiGeo rge syndr ome (22q) is evalu ated for the detec tion of micro delet ions, if selec nba. This scree n was devel oped, and its perfo rmanc e josé miguel cteri stics have been deter mined by [facility] . It has not been clear ed or appro eddie by the U.S. Food and Drug Admin istra tion. The FDA has deter mined that such clear ance or appro eric is not neces ruben. Perfo rmanc e josé miguel cteri stics refer to the marii tical perfo rmanc e of this scree tarik test. This scree tarik test is perfo rmed pursu ant to a licen se agree ment with Se[facility] nom Labor atori es. QNata l Advan lacho is a labor atory devel oped test that has been devel oped and valid ated, pursu ant to the Clini em Labor atory Impro vemen ts Amend ments of 1987 (CLIA ), and as such it has not been revie wed by FDA. Not Available [facility] [address], [place], [address], 02/08/2025 14:18:32 02/05/20 25 02/08/2025 CHLAM YDIA/ N. GONOR RHOEA E RNA, TMA, UROGE NITAL chlamydia trachomatis RNA, tma, urogenital NOT DETECT ED not detect ed normal Not Available [address], [address], 02/08/2025 14:18:33 02/05/20 25 02/08/2025 CHLAM YDIA/ N. GONOR RHOEA E RNA, TMA, UROGE NITAL neisseria gonorrhoeae RNA, tma, urogenital NOT DETECT ED not detect ed normal Not Available [address], [address], 02/08/2025 14:18:33 02/05/20 25 02/08/2025 CHLAM YDIA/ N. GONOR RHOEA E RNA, TMA, UROGE NITAL comment The marii tical perfo rmanc e josé miguel cteri stics of this assay , when used to test SureP ath(T M) speci mens have been deter mined by [facility]. The modif icati ons have not been clear ed or appro eddie by the FDA. This assay has been valid ated pursu ant to the CLIA regul ation s and is used for clini em purpo ses. For addit ional rhoda luis e refer to https ://ed ati on.qu estTravel [employer] com/f aq/FA Q154 (This link is being provi ded for iveth beaulieu/ ed metz purpo ses only. ) Not Available [address], [address], 02/08/2025 14:18:33 02/05/20 25 02/08/2025 RPR (DX) W/REF L TITER AND T. PALLI DUM AB, IA RPR (DX) w/refl titer and confirmatory testing NON-RE ACTIVE non-re active normal No labor atory evide nce of syphi lis. If recen t expos ure is suspe cted, submi t a new sampl e in 2-4 weeks . Not Available [facility] [address], [address], 02/08/2025 14:18:33 02/05/2002/08/2025 ANTIB BEREKET SCREE N, RBC W/REF L ID, TITER AND AG antibody screen, RBC w/refl id, titer and Ag NO ANTIBO DIES DETECT ED normal Refer ence range No antib odies detec nba This assay is a scree tarik test for the detec tion of red blood cell antib odies . The test is not to be used for pretr ansfu lucero scree tarik or for the medic al manag ement of an alloi mmuni zed pregn roula. Not Available [address], [address], 02/08/2025 14:18:34 02/05/20 25 02/08/2025 ABO GROUP AND RH TYPE ABO group B Not Available [address], [address], 02/08/2025 14:18:34 02/05/20 25 02/08/2025 ABO GROUP AND RH TYPE Rh type RH(D) POSITI VE For addit ional infor rhoda powers e refer to http: //[facility] rajendra Hoyos stDia gnost ics.c om/fa q/FAQ 111 (This link is being provi ded for infor abilio bailey/ ed metz purpo ses only. ) Not Available [address] [address] [place], [address], 02/08/2025 14:18:34 02/05/20 25 02/08/2025 DRUG MONIT OR, PANEL 1, SCREE N, URINE amphetamines NEGATI VE NG/mL <500 See Note A See Note A Not Available [facility] [address] [address] [place], [address], 02/08/2025 14:18:35 02/05/20 25 02/08/2025 DRUG MONIT OR, PANEL 1, SCREE N, URINE barbiturates NEGATI VE NG/mL <300 See Note A See Note A Not Available [address], [place], [address], 02/08/2025 14:18:35 02/05/20 25 02/08/2025 DRUG MONIT OR, PANEL 1, SCREE N, URINE benzodiazepi lakeisha NEGATI VE NG/mL <100 See Note A See Note A Not Available [facility] [address], [place], [address], 02/08/2025 14:18:35 02/05/20 25 02/08/2025 DRUG MONIT OR, PANEL 1, SCREE N, URINE cocaine metabolite NEGATI VE NG/mL <150 See Note A See Note A Not Available [facility] [address], [place], [address], 02/08/2025 14:18:35 02/05/20 25 02/08/2025 DRUG MONIT OR, PANEL 1, SCREE N, URINE marijuana metabolite NEGATI VE NG/mL <20 See Note A See Note A Not Available [facility] [address] [address], [place], [address], 02/08/2025 14:18:35 02/05/20 25 02/08/2025 DRUG MONIT OR, PANEL 1, SCREE N, URINE methadone metabolite NEGATI VE NG/mL <100 See Note A See Note A Not Available [facility] [address], [place], [address], 02/08/2025 14:18:35 02/05/20 25 02/08/2025 DRUG MONIT OR, PANEL 1, SCREE N, URINE opiates NEGATI VE NG/mL <100 See Note A See Note A Not Available [address], [place], [address], 02/08/2025 14:18:35 02/05/20 25 02/08/2025 DRUG MONIT OR, PANEL 1, SCREE N, URINE oxycodone NEGATI VE NG/mL <100 See Note A See Note A Not Available [facility] [address], [place], [address], 02/08/2025 14:18:35 02/05/20 25 02/08/2025 DRUG MONIT OR, PANEL 1, SCREE N, URINE phencyclidin e NEGATI VE NG/mL <25 See Note A See Note A Not Available [address], [place], [address], 02/08/2025 14:18:35 02/05/20 25 02/08/2025 DRUG MONIT OR, PANEL 1, SCREE N, URINE creatinine 256.7 mg/dL > or = 20.0 Not Available [address], [place], [address], 02/08/2025 14:18:35 02/05/20 25 02/08/2025 DRUG MONIT OR, PANEL 1, SCREE N, URINE pH 6.9 4.5-9. 0 Not Available [address], [place], [address], 02/08/2025 14:18:35 02/05/20 25 02/08/2025 DRUG MONIT OR, PANEL 1, SCREE N, URINE oxidant NEGATI VE mcg/m L <200 Not Available [address] , [place], [address], 02/08/2025 14:18:35 02/05/2002/08/2025 DRUG MONIT ORING TEMPL ATE notes and comments This drug testi ng is for medic al treat ment only. Marii sis was perfo rmed as non-f orens ic testi ng and these resul ts shoul d be used only by healt hcare provi ders to rende r diagn osis or treat ment, or to monit or progr ess of medic al condi tions . Note A: The resul ts are presu mptiv e; based only on mabel martines, and they have not been confi rmed by a defin itive [facility]lie [facility]alt h[facility] Provi ders needi ng Inter preta tion alejo tance , pleas e conta ct us at 1.877 .40.R XTOX (1.87 [phone] ) M-F, 8am to 10pm EST Not Available [facility] [address] [address] [place], [address], 02/08/2025 14:18:36 02/05/20 25 02/08/2025 CULTU RE, URINE , ROUTI NE culture, urine, routine SEE NOTE CULTU RE, URINE , ROUTI NE Micro Numbe r: [id number] Test Statu s: Final Speci men Sourc e: Urine Speci men Quali ty: Adequ ate Resul t: Mixed genit al sonido isola nba. These super ficia l bacte brenda are not indic ative of a urina ry tract infec tion. No furth er organ ism ident ifica tion is warra nted on this speci men. If clini jorge indic ated, recol lect clean -catc h, mid-s tream urine and trans ana immed iatel y to Urine Cultu re Trans port Tube. Not Available [facility] [address] , [place], [address], 02/08/2025 14:18:36 01/16/20 25 01/07/2025 US, obste tric, 1st trime ster No observ ation record ed. [email or web address] [facility] [address] [place], [address], 01/16/2025 09:23:34 Result Notes None recorded. Problems Name Problem SNOMED Code Status Onset Date Resolution Date Notes Provider Name and Address Organization Details Recorded Time Candidias is of skin 21917031 [facility] 20[facility]43 Normal in multigrav priyank 601245696049 106 Active 2022 EARL Burris [facility], Shari 3 17:12:40 Normal in multigrav priyank 892593983329 106 Completed 2022 EARL RODRIGUEZFADUMO PAOLA [facility], Shari 3 17:12:40 25281897 Active 2024 [facility], Shari 5 11:43:13 Problem Notes None recorded. Procedures Surgical History Date Name Laterality Status Provider Name and Address Organization Details Recorded Time 11/05/2022 Date of Last Pap Smear [facility] 11:55:28 Imaging Results None recorded. Procedure Notes None recorded. Medical Equipment None Reported. Allergies No known drug allergies Medications Name Sig Start Date Stop Date Status Note LastModified by Organization Details LastModified Time amoxicill in 500 mg capsule take 1 capsule BY MOUTH THREE TIMES DAILY 12/28 completed Not Available Not Available Not Available clindamyc in HCl 300 mg capsule take 1 capsule BY MOUTH THREE TIMES DAILY 10/05 completed Not Available Not Available Not Available azithromy chilo 250 mg tablet TAKE 2 TABLETS BY MOUTH TODAY, THEN TAKE 1 TABLET DAILY ON DAYS 2-5 12/28 completed Not Available Not Available Not Available prednison e 20 mg tablet TAKE 2 TABLETS BY MOUTH ONCE A DAY for 5 days 12/31 completed Not Available Not Available Not Available ketorolac 10 mg tablet TAKE 1 TABLET BY MOUTH EVERY 8 HOURS NEEDED FOR PAIN FOR 5 DAYS 12/31 completed Not Available Not Available Not Available oxycodone -acetamin ophen 5 mg-325 mg tablet TAKE 1 TABLET BY MOUTH EVERY 8 HOURS NEEDED FOR PAIN 12/31 completed Not Available Not Available Not Available famotidin e 20 mg tablet TAKE 1 TABLET BY MOUTH TWICE DAILY active Not Available Not Available No t Available nystatin 100,000 unit/gram topical cream APPLY TO THE AFFECTED AREA(S) TWICE DAILY 12/31 completed Not Available Not Available Not Available ondansetr on 4 mg disintegr ating tablet DISSOLVE ONE TABLET in MOUTH EVERY 8 HOURS NEEDED FOR NAUSEA AND VOMITING 12/31 completed Not Available Not Available Not Available amoxicill in 875 mg-potass ium clavulana te 125 mg tablet two times daily 10/05 completed Recorded 05/21/19 6:47PM by Haleigh Guillory, Office Visit; Refill Quantity : 0; Not Available Not Available Not Available neomycin- polymyxin -hydrocor t 3.5 mg-10,000 unit/mL-1 % ear drops,zachery p apply FOUR drops into THE affected ear THREE TIMES DAILY FOR SEVEN DAYS 12/28 completed Not Available Not Available Not Available 10/26 completed Not Available Not Available Not Available Vitamin daily active 0; Recorded 05/03/19 8:32AM by Earl ramirez, Office Visit; Not Available Not Available Not Available Ozempic 0.25 mg or 0.5 mg (2 mg/3 mL) subcutane ous pen injector inject 0.25mg (0.368ml ) SUBCUTAN EOUSLY ONCE weekly 12/31 completed Not Available Not Available Not Available Vitals Date Recorded Body height Body mass index (BMI) Body weight Oxygen saturation Heart rate Respiratory rate Body temperature Systolic And Diastolic Provider Name and Address Organization Details Last Updated DateTime 3 162.56 cm 48.7 kg/m2 772083. 80686 g 99 % 104 /min 20 /min 97.9 [degF] 130/72 mm[Hg] EARL OLVERA [facility] 3 11:51:47 Date Recorded Body weight Body mass index (BMI) Body height Body temperature Heart rate Oxygen saturation Systolic And Diastolic Provider Name and Address Organization Details Last Updated DateTime 5 086429. 35 g 46.2 kg/m2 162.56 cm 98 [degF] 105 /min 99 % 118/82 mm[Hg] [facility] L[facility]CM[facility] 5 11:45:25 Date Recorded Body weight Systolic And Diastolic Provider Name and Address Organization Details Last Updated DateTime 01/01/2025 713469.97203 g 118/82 mm[Hg] Sherlyn Cervantes MD [address] [place], [address], [facility] 01/01/2025 10:55:08 Date Recorded Body height Body mass index (BMI) Body weight Body temperature Oxygen saturation Heart rate Systolic And Diastolic Provider Name and Address Organization Details Last Updated DateTime 162.56 cm 47 kg/m2 609817. 31 g 97.5 [degF] 99 % 93 /min 124/90 mm[Hg] Stephanie Christiano [facility] 11:36:03 Social History Question Answer Notes LastModified by Organizat ion Details LastModified Time Tobacco Smoking Status Never Smoker EARL claros [facility] 06/29/2022 15:25:26 What Was The Date Of Your Most Recent Tobacco Screening? 01/28/2025 [email or web address] Information not available 01/28/2025 What Is Your Relationship Status? Domestic Partner [...] 06/29/2022 Are you able to care for yourself independently? Yes Information not available 06/29/2022 Mental Status [...] history recorded. Gynecological History Statement/Question Response STIs/STDs Date of Last Pap Smear 11/05/2022 Age at First Child 21 Sexually Active? Y Obstetrics History GPAL:G 3 P 2 0 0 2 Type Value Full Term 2 Living 2 Total 3 Immunizations Vaccine Type Date Status Note Provider Nam e and Address Organization Details Recorded Time IPV 2 completed TREBA NEUSCHWANDER null, [facility] 09/06/2022 12:43:40 IPV 6 [facility]/06/2022 12:43:40 IPV 2 completed [facility] 09/06/2022 12:43:40 IPV 2 completed TREBA NEUSCHWANDER null, [facility] 09/06/2022 12:43:40 MMR 3 completed [facility] 09/06/2022 12:43:40 MMR 6 completed TREBA NEUSCHWANDER null, [facility] 09/06/2022 12:43:40 pneumococcal conjugate PCV 7 2 completed [facility] 09/06/2022 12:43:40 pneumococcal conjugate PCV 7 2 completed [facility] 09/06/2022 12:43:40 pneumococcal conjugate PCV 7 2 completed TREBA NEUSCHWANDER null, [facility] 09/06/2022 12:43:40 pneumococcal polysaccharide PPV23 3 completed TREBA NEUSCHWANDER null, [facility] 09/06/2022 12:43:40 Tdap 6 completed TREBA NEUSCHWANDER null, [facility] 09/06/2022 12:43:40 varicella 3 completed TREBA NEUSCHWANDER null, [facility] 09/06/2022 12:43:40 Hep B, unspecified formulation 2 completed TREBA NEUSCHWANDER null, [facility] 09/06/2022 12:43:40 Hep B, unspecified formulation 2 completed TREBA NEUSCHWANDER null, [facility] 09/06/2022 12:43:40 Hep B, adolescent or pediatric 2 completed TREBA NEUSCHWANDER null, [facility] 09/06/2022 12:43:40 Hib (HbOC) 2 completed TREBA NEUSCHWANDER null, [facility] 09/06/2022 12:43:40 Hib (PRP-T) 3 completed TREBA NEUSCHWANDER null, [facility] 09/06/2022 12:43:40 Hib (PRP-T) 2 completed TREBA NEUSCHWANDER null, [facility] 09/06/2022 12:43:40 Hib (PRP-T) 2 completed TREBA NEUSCHWANDER null, [facility] 09/06/2022 12:43:40 meningococcal MCV4P 6 completed TREBA NEUSCHWANDER null, [facility] 09/06/2022 12:43:40 DTaP 3 completed TREBA NEUSCHWANDER null, [facility] 09/06/2022 12:43:40 DTaP 2 completed TREBA NEUSCHWANDER null, [facility] 09/06/2022 12:43:40 DTaP 6 completed TREBA NEUSCHWANDER null, [facility] 09/06/2022 12:43:40 DTaP 2 completed TREBA NEUSCHWANDER null, [facility] 09/06/2022 12:43:40 DTaP 2 completed TREBA NEUSCHWANDER null, [facility] 09/06/2022 12:43:40 Past Encounters Encounter ID Performer Location Encounter Start Date Encounter Closed Date Diagnosis/Indication Diagnosis SNOMED-CT Code Diagnosis ICD10 Code Diagnosis IMO Codes Diagnosis Note [id number] Sundar Velasquez MD [facility] ([facility]) [address] [place] [id number] 06/29/2022 14:05:10 07/05/2022 12:12:52 [id number] Z33.1 Normal pre gnancy in primigravida 3789009575 78117 O30.91 [id number] Sundar Velasquez MD [facility] ([facility]) [address] [place] [id number] 5 08/05/2022 16:51:05 08/05/2022 17:57:51 GINNA DEMPSEY [facility] ([facility]) [address] [place] [id number] 5 08/18/2022 18:24:27 08/18/2022 18:25:12 TAMARA LOPEZ [facility] ([facility]) [address] [place] [address] 08/19/2022 17:37:02 08/19/2022 17:49:25 [id number] Sundar Velasquez MD [facility] ([facility]) [address] [place] [id number] 5 08/23/2022 09:55:13 08/23/2022 20:06:59 39043065 Z33.1 Gestation period, 21 weeks 62375466 Z3A.21 Pain of ri ght knee joint 9620785343 15719 M25.561 [id number] Sundar Velasquez MD [facility] ([facility]) [address] [place] [id number] 5 09/06/2022 11:51:57 09/06/2022 13:50:32 78673073 Z33.1 Gestation period, 23 weeks 48974518 Z3A.23 Low grade squamous intraepithelial lesion on cervical Papanicolaou smear 6954421700 9105 R87.612 We discussed. She [place] pap [place] . [id number] Sundar Velasquez MD [facility] ([facility]) [address] [place] [address] [id number] 5 09/20/2022 16:51:55 09/20/2022 18:16:13 US obstetric scan abnormal 183612476 O28.3 [id number] Sundar Velasquez MD [facility] ([facility]) [address] [place] [id number] 5 09/21/2022 15:30:05 09/30/2022 11:44:27 Normal in multigravida 7174962794 36292 Z34.82 Gestation period, 25 weeks 21194959 Z3A.25 [id number] Sundar Velasquez MD [facility] ([facility]) [address] [place] [id number] 5 10/05/2022 12:54:18 10/05/2022 17:57:41 [id number] Z33.1 [id number] Sundar Velasquez MD [facility] ([facility]) [address] [place] [id number] 5 10/26/2022 12:23:39 10/26/2022 19:14:16 [id number] Z33.1 Normal 1841907 2 Z34.83 Gestation period, 30 weeks 43136001 Z3A.30 [id number] Sundar Velasquez MD [facility] ([facility]) [address] [place] [id number] 5 11/03/2022 11:28:58 11/03/2022 14:47:11 [id number] Z33.1 Normal 9170537 2 Z34.83 Gestation period, 32 weeks 9305027 Z3A.32 Uterine si ze for dates discrepancy 679389381 O26.251 [id number] Sundar Velasquez MD [facility] ([facility]) [address] [place] [id number] 5 11/17/2022 11:43:44 11/17/2022 17:39:55 [id number] Z33.1 Normal 4568612 2 Z34.83 [id number] Sundar Velasquez MD [facility] ([facility]) [address] [place] [id number] 5 11/17/2022 16:42:41 11/17/2022 17:46:01 [id number] Sundar Velasquez MD [facility] ([facility]) [address] [place] [id number] 5 12/01/2022 11:49:11 12/09/2022 14:13:54 Normal in multigravida 7767496625 23938 Z34.83 Gestation period, 36 weeks 61734978 Z3A.36 [id number] Sundar Velasquez MD [facility] ([facility]) [address] [place] [address] [id number] 5 12/07/2022 11:47:42 12/07/2022 15:41:30 Normal in multigravida 5905099854 47448 Z34.83 Gestation period, 36 weeks 61576816 Z3A.36 [id number] Sundar Velasquez MD [facility] ([facility]) [address] [place] [address] [id number] 5 12/14/2022 11:21:44 12/14/2022 17:43:19 Normal in multigravida 3104184323 68391 Z34.83 Gestation period, 37 weeks 90028202 Z3A.37 [id number] Sundar Velasquez MD [facility] ([facility]) [address] [place] [address] [id number] 5 12/22/2022 11:31:11 12/25/2022 07:03:25 [id number] Sherlyn Cervantes MD [facility] ([facility]) [address] [place] [address] [id number] 5 12/31/2024 11:33:10 12/31/2024 13:02:50 [id number] Z34.90 - Confirm dating with a follow-up ultrasound - Regular visits scheduled every four weeks - Perform routine labs and optional genetic screening after 10 weeks History of hypertension 514302307 Z86.79 - Monitor and manage blood pressure with frequent checks - Discussed maintainin g a home blood pressure monitor for early detection Gastroesop hageal reflux disease 807707014 K21.9 - Discuss medication s like Pepcid for safe use - Encourage dietary changes to manage symptoms before medication use History of calculus of kidney 683098952 Z87.442 - Inform about symptoms and seek care if they arise [id number] Sherlyn Cervantes MD [facility] ([facility]) [address] [place] [address] [id number] 5 01/07/2025 12:43:31 01/07/2025 14:53:33 Normal in multigravida 6055330830 77660 Z34.80 75047191 [id number] Sherlyn Cervantes MD [facility] ([facility]) [address] [place] [address] [id number] 5 01/28/2025 11:28:07 01/28/2025 13:02:57 Multigravida 455358522 Z34.81 [id number] - Plan for blood pressure monitoring and recommende d bloodwork is in place. Health Concerns Section Related Observation LastModified by Organization Detai ls LastModified Time None Recorded Concern Status LastModified by Organization Details LastModified Time None Recorded Advance Directives Directive None Recorded Payers Insurance Date Sequence Insurance Name Policy Number Policy Torres Covered Member ID Torres Member ID Guarantor Name 02/22/2025 1 [employer] [place]AC[place] - HMO) [id number] Diana Gongora [id number] Diana Gongora 12/27/2024 1 [place] [id number] Diana Gongora [id number] Diana Gongora Notes Date Note Type Note Provider Name and Address Organization Details Recorded Time 023 text/ht ml jr ob routineReported by PatientHPIFor associated symptoms, patient reportsabdominal pain,cramping,constipation,diarrhea/ loose stool,edema,headache, anddizzinessbut reportsno contractions,normal movement,no bleeding,no vaginal discharge,no vaginal/vulvar itching or irritation,no dysuria,no frequency,no fever,no nausea,no emesis,no visual changes, andno breathlessness(back pain intermittent, occasional vaginal pressure, heartburnpt denies any alcohol, drug or tobacco use.).ROS as noted in the HPI Sundar Velasquez MD [address] [place] [address], [phone], [facility], .[facility]. 12/14/2022 12:31:22 025 text/ht ml jr ob routineReported by PatientHPIFor associated symptoms, patient reportsno abdominal pain,no cramping,no contractions,normal movement,no bleeding,no rom,no vaginal discharge,no vaginal/vulvar itching or irritation,no dysuria,no frequency,no urgency,no hematuria,no fever,no nausea,no emesis,no constipation,no diarrhea/loose stool,no edema,no visual changes,no headache,no dizziness,no decrease in urine volume,no breathlessness, andno hyperreflexia. The patient is a 24-year-old female presenting with for her initial obstetric visit. Her last menstrual period is unknown, and the estimated due date from the resource center ultrasound is August 19, 2025. She was previously on oral control and antibiotics for kidney stones, which possibly compromised the effectiveness of the contraception and led to the current . She is approximately seven weeks . Her past medical history includes hypertension during a previous and complications with epidural administration that resulted in transient bradycardia. The patient also reports significant acid reflux with her previous pregnancies and was on Pepcid but has not refilled this prescription. Acid reflux management has yet to be addressed. She expresses openness to an epidural in her current despite past complications. - [facility]: Estimated due date: August 19, 2025 Sherlyn Cervantes MD [address] [place] [address], [phone], [facility] 01/01/2025 10:56:40 025 text/ht ml jr ob routineReported by PatientHPIFor associated symptoms, patient reportscrampingandconstipationbut reportsno abdominal pain,no contractions,normal movement,no bleeding,no rom,no vaginal discharge,no vaginal/vulvar itching or irritation,no dysuria,no frequency,no urgency,no hematuria,no fever,no nausea,no emesis,no diarrhea/loose stool,no edema,no visual changes,no headache,no dizziness,no decrease in urine volume,no breathlessness, andno hyperreflexia.ROS as noted in the HPI The patient is a 24-year-old female presenting for the supervision of her normal in the first trimester. She has a history of hypertension with early signs of pre-eclampsia in her first . Her blood pressure today is 124/90 mmHg, noted to be on the higher side similar to her past experience. She understands the need for ongoing blood pressure monitoring. Sherlyn Cervantes MD [address] [place] [address], [phone], [facility] 01/30/2025 14:51:07 OBGyn Episode Ob Episode Information Episode Created Date Number of Fetuses Patient Bloodtype Patient rh Status Prepregnancy Weight lbs Domestic Partner Domestic Partner Phone Father Name Javascript Developer Status 01/01/20 25 1 B Positive Arpan Flynn OPEN Fetus Data First Name Last Name Admitted to NICU Weight (g) Sex Living Outcome Pediatric Complications Fetus ID Race Codes Race Delivery Type [id number] Abe Calculation Initial Abe Date Initial Exam Date Initial Exam Provider Initial Ultrasound Date Last Menstrual Period Date Ultra Sound Weeks Gestation 12/31/2024 01/07/2025 6 Eighteen To Twenty Week Abe Update Ultra Sound Date Fundal Height At Umbil Quickening Date Ultra Sound Latest Weeks Gestation Final Abe Confirmed By Final Abe Confirmed Date Final Abe Date Ultra Sound Latest Days Gestation 0 [email or web address] 01/09/2025 08/31/19 26 0 Pre-gloria Flowsheet Flowsheet Date 01/01/2025 Odonnell Score Blood Edema Fundus Height Fundus Units Glucose Ketones Leukocytes Nitrite Labor Signs Protein Cervic Dilation Cervic Effacement Cervic Station Type Weight in lbs Pre/Post Dialysis Refused 269.423006312775 BP Diastolic BP Location Tested BP Systolic BP Type 82 118 Fetus Heart Rate Present Fetus Movement Comments Flowsheet Date 01/07/2025 Odonnell Score Blood Edema Fundus Height Fundus Units Glucose Ketones Leukocytes Nitrite Labor Signs Protein Cervic Dilation Cervic Effacement Cervic Station Type Weight in lbs Pre/Post Dialysis Refused BP Diastolic BP Location Tested BP Systolic BP Type Fetus Heart Rate Present Fetus Movement Comments Flowsheet Date 01/28/2025 Odonnell Score Blood Edema Fundus Height Fundus Units Glucose Ketones Leukocytes Nitrite Labor Signs Protein Cervic Dilation Cervic Effacement Cervic Station Type Weight in lbs Pre/Post Dialysis Refused Weight 274.395791317122 BP Diastolic BP Location Tested BP Systolic BP Type 90 124 Fetus Heart Rate Present Fetus Movement Comments Menstrual History Last Menstrual Date Menses Monthly On Bcp Conception Prior Menses Frequency Hcg Plus Date Menarche Onset Age true Genetic Screening And Infection History Question Response Note Patient's Age Will Be 35 Years Or Older At Estim ated Date of Delivery false Thalassemia (South Korean, Bhutanese, Mediterranean, Or Background): MCV < 80 false Neural Tube Defect (Meningomyelocele, Spina Bifi da, Or Anencephaly) false Congenital Heart Defect false Down Syndrome false Dominic-Sachs (eg, Sabianist, Cajun, Upper Sorbian-Bangladeshi) f alse Jay Disease false Sickle Cell Disease Or Trait () false Hemophilia Or Other Blood Disorders false Muscular Dystrophy false Cystic Fibrosis false [place]'s Chorea false Intellectual Disability/Autism false If Yes, Was Person Tested For Fragile X? false Other Inherited Genetic Or Chromosomal Disorder false Maternal Metabolic Disorder (eg, Type 1 Diabetes , PKU) false Patient Or Baby's Father Had A Child With Defects Not Listed Above false Recurrent Loss, Or A Stillbirth false Medications (including Suppl ements, Vitamins, Herbs, OTC Drugs), Illicit/Recreational Drugs, Alcohol true If Yes, Agent(s) And Strength/Dosage false Any Other Genetic History false Live With Someone With TB Or Exposed To TB false Patient Or Partner Has History Of Genital Herpes false Rash Or Viral Illness Since Last Menstrual Perio d false History Of STD, Gonorrhea, Chlamydia, HPV, Syphi lis false Other Infection History false History of HIV [...] Domestic Partner Domestic Partner Phone Father Name Javascript Developer Status 06/30/19 24 1 B Positive Arpan Flynn CLOSED Fetus Data First Name Last Name Admitted to NICU Weight (g) Sex Living Outcome Pediatric Complications Fetus ID Race Codes Race Delivery Type [id number] Problems Problem Notes Follow up ultrasound for out flow tracks. Problem Name Start Date End Date Resolution Snomed Code Not e Normal in multigravida 09/21/2022 [id number] Abe Calculation Initial Abe Date Initial Exam Date Initial Exam Provider Initial Ultrasound Date Last Menstrual Period Date Ultra Sound Weeks Gestation 12/29/2022 06/29/2022 05/17/2022 0 Eighteen To Twenty Week Abe Update Ultra Sound Date Fundal Height At Umbil Quickening Date Ultra Sound Latest Weeks Gestation Final Abe Confirmed By Final Abe Confirmed Date Final Abe Date Ultra Sound Latest Days Gestation 0 0 Pre- Flowsheet Flowsheet Date 06/29/2022 Odonnell Score Blood Edema Fundus Height Fundus Units Glucose Ketones Leukocytes Nitrite Labor Signs Protein Cervic Dilation Cervic Effacement Cervic Station none Type Weight in lbs Pre/Post Dialysis Refused Weight 241.243302510719 BP Diastolic BP Location Tested BP Systolic [...] ation, placenta posterior, grade 0, normal AFV, [id number]/23/23, EGA-19.3, RVOT and LVOT not seen, anatomic [...] Weight in lbs Pre/Post Dialysis Refused Weight 249.705690431318 BP Diastolic BP Location Tested BP Systolic [...] Weight in lbs Pre/Post Dialysis Refused Weight 258.738198319626 BP Diastolic BP Location Tested BP Systolic [...] todays study and appear normal. EGA 26.3, ABE 12/24/22. Flowsheet Date 09/21/2022 Odonnell Score Blood Edema Fundus Height Fundus Units Glucose Ketones Leukocytes Nitrite Labor Signs Protein Cervic Dilation Cervic Effacement Cervic Station 26 cm none trace 1+ Type Weight in lbs Pre/Post Dialysis Refused Weight 260.844083555833 BP Diastolic BP Location Tested BP Systolic [...] Weight in lbs Pre/Post Dialysis Refused Weight 268.479970584174 BP Diastolic BP Location Tested BP Systolic [...] Weight in lbs Pre/Post Dialysis Refused Weight 268.119558965610 BP Diastolic BP Location Tested BP Systolic [...] Weight in lbs Pre/Post Dialysis Refused Weight 272.766975790173 BP Diastolic BP Location Tested BP Systolic [...] Weight in lbs Pre/Post Dialysis Refused Weight 276.386100674283 BP Diastolic BP Location Tested BP Systolic [...] Present Fetus Movement Comments u/s on 11/17/22, ABE 12/21/22 , EGA 35.1, DIONY 16.53, Vertex Flowsheet Date 12/01/2022 Odonnell Score Blood Edema Fundus Height Fundus Units Glucose Ketones Leukocytes Nitrite Labor Signs Protein Cervic Dilation Cervic Effacement Cervic Station 36 cm none trace trace Type Weight in lbs Pre/Post Dialysis Refused Weight 279.050306415563 BP Diastolic BP Location Tested BP Systolic [...] Weight in lbs Pre/Post Dialysis Refused Weight 282.603999603098 BP Diastolic BP Location Tested BP Systolic [...] Weight in lbs Pre/Post Dialysis Refused Weight 284.122052791155 BP Diastolic BP Location Tested BP Systolic [...] Rate Present Fetus Movement Comments Flowsheet Date 12/31/2024 Odonnell Score Blood Edema Fundus Height Fundus Units Glucose Ketones Leukocytes Nitrite Labor Signs Protein Cervic Dilation Cervic Effacement Cervic Station Type Weight in lbs Pre/Post Dialysis Refused Weight 269.956567709535 BP Diastolic BP Location Tested BP Systolic BP Type 82 118 Fetus Heart Rate Present Fetus Movement Comments Menstrual History Last Menstrual Date Menses Monthly On Bcp Conception Prior Menses Frequency Hcg Plus Date Menarche Onset Age Genetic Screening And Infection History Question Response Note Patient's Age Will Be 35 Yea rs Or Older At Estimated Date of Delivery false Thalassemia (South Korean, Bhutanese, Mediterranean, Or Background): MCV < 80 false Neural Tube Defect (Meningom yelocele, Spina Bifida, Or Anencephaly) false Congenital Heart Defect false Down Syndrome false Dominic-Sachs (eg, Sabianist, Cajun, Upper Sorbian-Bangladeshi) f alse Jay Disease false Sickle Cell Disease Or Trait () false Hemophilia Or Other Blood Disorders false Muscular Dystrophy false Cystic Fibrosis false [place]'s Chorea false Intellectual Disability/Autism false If Yes, [...] Post Complications Tubal Sterilization Discharge Date Comments 5 142.4 Discharge Information Feeding Method Contraceptive Method Maternal HG B and HCT Levels Ob Episode Information Episode Created Date Number of Fetuses Patient Bloodtype Patient rh Status Prepregnancy Weight lbs Domestic Partner Domestic Partner Phone Father Name Javascript Developer Status 06/30/19 23 1 CLOSED Fetus Data First Name Last Name Admitted to NICU Weight (g) Sex Living Outcome Pediatric Complications Fetus ID Race Codes Race Delivery Type 2834.95 F 649 VAGINAL Abe Calculation Initial Abe Date Initial Exam Date Initial Exam Provider Initial Ultrasound Date Last Menstrual Period Date Ultra Sound Weeks Gestation 0 Eighteen To Twenty Week Abe Update Ultra Sound Date Fundal Height At Umbil Quickening Date Ultra Sound Latest Weeks Gestation Final Abe Confirmed By Final Abe Confirmed Date Final Abe Date Ultra Sound Latest Days Gestation 0 [...]
--- OUTSIDE RECORDS SUMMARY | 2025-02-25 01:12 | XMS_ITS | Continuity of Care Document ---
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 Name Role Phone SHERLYN CERVANTES Primary Care Provider Assessment Encounter Date Assessment Date Assessment LastModified by Organization Details LastModified Time 01/28/2025 01/28/2025 - 24-year-old female for KARRIE [...] available RETURN OB 2025 10:15A M Sherlyn Cervantes MD Not available Not available Not available RETURN OB 2025 10:30A M Sherlyn Cervantes MD Not available Not available Not available RETURN OB 2025 10:30A M Sherlyn Cervantes MD Not available Not available Not available Lab RPR (rapid plasma reagin) , serum 2024 [facility], [address] [place] [address], [address], [place], [address], 02/08/2025 14:18:33 CBC w/ auto diff 2024 [facility], [address] [place] [address], [address], [place], [address], 02/08/2025 14:18:30 hepatit is C virus Ab, serum 2024 025 [facility], [address] [place] [address], [address], [place], [address], 02/08/2025 14:18:31 HIV 1+2 Ab + HIV1 p24 Ag, quantit ative immunoa ssay, serum 2024 025 [facility], [address] [place] [address], [address], [place], [address], 02/08/2025 14:18:29 antibod y screen, serum or plasma 2024 025 [facility] [place] [address], [address], [place], [address], 02/08/2025 14:18:34 abo group + rh type, blood 2024 [facility], [address] [place] [address], [address], [place], [address], 02/08/2025 14:18:34 HBsAg (hepati tis B surface Ag), serum 2024 [facility], [address] [place] [address], [address], [place], [address], 02/08/2025 14:18:31 rubella igg Ab screen, serum 2024 [facility], [address] [place] [address], [address], [place], [address], 02/08/2025 14:18:31 urinaly sis, complet e 2024 [facility], [address] [place] [address], [address], [place], [address], 02/08/2025 14:18:29 culture , urine 2024 [facility], [address] [place] [address], [address], [place], [address], 02/08/2025 14:18:36 drug screen, urine 2024 [facility], [address] [place] [address], [address], [place], [address], 02/08/2025 14:18:35 CT + NG RNA, PCR, unspeci fied specime n 2024 [place] [address], [address], [place], [address], 02/08/2025 14:18:33 unliste d lab - qnatal( R) advance d 2024 025 [facility], [address] [facility] [address], [address] , [place], [address], 02/08/2025 14:18:32 Referral None recorde d. Procedures None recorde d. Surgeries None recorde d. Imaging None recorde d. Medication Orders None recorde d. Patient TargetsNo targets recorded. Patient Instructions Encounter Date Encounter Id Patient Instructions Last Modified By Organization Details Last Modified Time 01/28/2025 [id number] - Monitor blood pressure at home and [...] Abnormal Flag Note LastModifiedBy Organization Detail LastModifiedTime 10/16/1910/15/2022 CBC WBC 13.1 x10 4.0-10 .5 high Not Available [facility] [address], [place], [address], 10/15/2022 14:45:23 10/16/1910/15/2022 CBC RBC 4.70 x10 3.50-5 .50 Not Available [facility] [address], [place], [address], 10/15/2022 14:45:23 10/16/19 23 10/15/2022 CBC HGB 12.1 g/dL 12.0-1 6.0 Not Available [facility] [address] [facility] 1, [place], [address], 10/15/2022 14:45:23 10/16/19 23 10/15/2022 CBC HCT 36.7 % 37.0-4 7.0 low Not Available [facility] [address] [facility] [address], [place], [address], 10/15/2022 14:45:23 10/16/19 23 10/15/2022 CBC MCV 78.0 fL 80.0-9 9.9 low Not Available [facility] [address] [facility] [address], [place], [address], 10/15/2022 14:45:23 10/16/19 23 10/15/2022 CBC MCH 25.7 pg 27.0-3 2.0 low Not Available [facility] [address] [facility], [place], [address], 10/15/2022 14:45:23 10/16/19 23 10/15/2022 CBC MCHC 33.0 g/dL 32.0-3 6.0 Not Available [facility] [address] [facility] [address], [place], [address], 10/15/2022 14:45:23 10/16/19 23 10/15/2022 CBC RDW 16.1 % 11.5-1 4.6 high Not Available [facility] [address] [facility] 1, [place], [address], 10/15/2022 14:45:23 10/16/19 23 10/15/2022 CBC plt 252.0 x10 140.0- 451.0 Not Available [facility] [address] [facility] 1, [place], [address], 10/15/2022 14:45:23 10/16/19 23 10/15/2022 CBC lymphocytes % 15.1 % 20.0-5 0.0 low Not Available [facility] [address] [facility], [place], [address], 10/15/2022 14:45:23 10/16/19 23 10/15/2022 CBC granulcytes % 79.6 % 30.0-7 0.0 high Not Available [facility] [address] [facility], [place], [address], 10/15/2022 14:45:23 10/16/19 23 10/15/2022 CBC monocytes % 3.9 % 2.0-10 .0 Not Available [facility] [address] [facility], [place], [address], 10/15/2022 14:45:23 10/16/19 23 10/15/2022 CBC granulcytes# 10.4 x10 Not Elizabeth ilable [facility] [address] [facility], [place], [address], 10/15/2022 14:45:23 10/16/19 23 10/15/2022 CBC lymphocytes # 2.0 x10 Not Available [facility] [address] [facility], [place], [address], 10/15/2022 14:45:23 10/16/19 23 10/15/2022 CBC monocytes # 0.5 x10 Not Avai lable [facility] [address] [facility], [place], [address], 10/15/2022 14:45:23 10/16/19 23 10/15/2022 GLUCO SE SCREE N glucose screen 119.0 mg/dL panic high Not Available [facility] [address] [facility] 1, [place], [address], 10/15/2022 16:13:44 06/30/19 23 07/06/2022 URINA LYSIS , COMPL ETE color YELLOW yellow normal Not Available [facility] [address], [address], 07/06/2022 15:35:05 06/30/19 23 07/06/2022 URINA LYSIS , COMPL ETE appearance CLOUDY clear abnormal Not Available [facility] [address], [address], 07/06/2022 15:35:05 06/30/19 23 07/06/2022 URINA LYSIS , COMPL ETE specific gravity 1.020 1.001- 1.035 normal Not Available [address], [address], 07/06/2022 15:35:05 06/30/19 23 07/06/2022 URINA LYSIS , COMPL ETE pH 7.5 5.0-8. 0 normal Not Available [address], [address], 07/06/2022 15:35:05 06/30/19 23 07/06/2022 URINA LYSIS , COMPL ETE glucose NEGATI VE negati ve normal Not Available [address], [address], 07/06/2022 15:35:05 06/30/19 23 07/06/2022 URINA LYSIS , COMPL ETE bilirubin NEGATI VE negati ve normal Not Available [address], [address], 07/06/2022 15:35:05 06/30/19 23 07/06/2022 URINA LYSIS , COMPL ETE ketones NEGATI VE negati ve normal Not Available [facility] [address], [address], 07/06/2022 15:35:05 06/30/19 23 07/06/2022 URINA LYSIS , COMPL ETE occult blood NEGATI VE negati ve normal Not Available [address], [address], 07/06/2022 15:35:05 06/30/19 23 07/06/2022 URINA LYSIS , COMPL ETE protein NEGATI VE negati ve normal Not Available [address], [address], 07/06/2022 15:35:05 06/30/19 23 07/06/2022 URINA LYSIS , COMPL ETE nitrite NEGATI VE negati ve normal Not Available [address], [address], 07/06/2022 15:35:05 06/30/19 23 07/06/2022 URINA LYSIS , COMPL ETE leukocyte esterase NEGATI VE negati ve normal Not Available [address], [address], 07/06/2022 15:35:05 06/30/19 23 07/06/2022 URINA LYSIS , COMPL ETE WBC NONE SEEN /hpf < or = 5 normal Not Available [address], [address], 07/06/2022 15:35:05 06/30/19 23 07/06/2022 URINA LYSIS , COMPL ETE RBC NONE SEEN /hpf < or = 2 normal Not Available [address], [address], 07/06/2022 15:35:05 06/30/19 23 07/06/2022 URINA LYSIS , COMPL ETE squamous epithelial cells 0-5 /hpf < or = 5 Not Available [address], [address], 07/06/2022 15:35:05 06/30/19 23 07/06/2022 URINA LYSIS , COMPL ETE bacteria FEW /hpf none seen abnormal Not Available [address], [address], 07/06/2022 15:35:05 06/30/19 23 07/06/2022 URINA LYSIS , COMPL ETE hyaline cast NONE SEEN /lpf none seen normal Not Available [facility] [address], [address], 07/06/2022 15:35:05 06/30/19 23 07/06/2022 CBC (INCL UDES DIFF/ PLT) white blood cell count 9.0 thous and/u L 3.8-10 .8 normal Not Available [address], [address], 07/06/2022 15:35:06 06/30/19 23 07/06/2022 CBC (INCL UDES DIFF/ PLT) red blood cell count 5.49 yariel on/uL 3.80-5 .10 high Not Available [address], [address], 07/06/2022 15:35:06 06/30/19 23 07/06/2022 CBC (INCL UDES DIFF/ PLT) hemoglobin 12.9 g/dL 11.7-1 5.5 normal Not Available [address], [address], 07/06/2022 15:35:06 06/30/19 23 07/06/2022 CBC (INCL UDES DIFF/ PLT) hematocrit 41.3 % 35.0-4 5.0 normal Not Available [address], [address], 07/06/2022 15:35:06 06/30/19 23 07/06/2022 CBC (INCL UDES DIFF/ PLT) MCV 75.2 fL 80.0-1 00.0 low Not Available [facility] [address], [address], 07/06/2022 15:35:06 06/30/19 23 07/06/2022 CBC (INCL UDES DIFF/ PLT) MCH 23.5 pg 27.0-3 3.0 low Not Available [facility] [address], [address], 07/06/2022 15:35:06 06/30/19 23 07/06/2022 CBC (INCL UDES DIFF/ PLT) MCHC 31.2 g/dL 32.0-3 6.0 low Not Available [facility] [address], [address], 07/06/2022 15:35:06 06/30/19 23 07/06/2022 CBC (INCL UDES DIFF/ PLT) RDW 14.9 % 11.0-1 5.0 normal Not Available [facility] [address], [address], 07/06/2022 15:35:06 06/30/19 23 07/06/2022 CBC (INCL UDES DIFF/ PLT) platelet count 217 thous and/u L 140-40 0 normal Not Available [facility] [address], [address], 07/06/2022 15:35:06 06/30/19 23 07/06/2022 CBC (INCL UDES DIFF/ PLT) MPV 11.8 fL 7.5-12 .5 normal Not Available [facility] [address], [address], 07/06/2022 15:35:06 06/30/19 23 07/06/2022 CBC (INCL UDES DIFF/ PLT) absolute neutrophils 6696 cells /uL 1500-7 800 normal Not Available [facility] [address], [address], 07/06/2022 15:35:06 06/30/19 23 07/06/2022 CBC (INCL UDES DIFF/ PLT) absolute lymphocytes 1764 cells /uL 850-39 00 normal Not Available [address], [address], 07/06/2022 15:35:06 06/30/19 23 07/06/2022 CBC (INCL UDES DIFF/ PLT) absolute monocytes 450 cells /uL 200-95 0 normal Not Available [address], [address], 07/06/2022 15:35:06 06/30/19 23 07/06/2022 CBC (INCL UDES DIFF/ PLT) absolute eosinophils 63 cells /uL 15-500 normal Not Available [address], [address], 07/06/2022 15:35:06 06/30/19 23 07/06/2022 CBC (INCL UDES DIFF/ PLT) absolute basophils 27 cells /uL 0-200 normal Not Available [facility] [address], [address], 07/06/2022 15:35:06 06/30/19 23 07/06/2022 CBC (INCL UDES DIFF/ PLT) neutrophils 74.4 % normal Not Available [address], [address], 07/06/2022 15:35:06 06/30/19 23 07/06/2022 CBC (INCL UDES DIFF/ PLT) lymphocytes 19.6 % normal Not Available [address], [address], 07/06/2022 15:35:06 06/30/19 23 07/06/2022 CBC (INCL UDES DIFF/ PLT) monocytes 5.0 % normal Not Available [address], [address], 07/06/2022 15:35:06 06/30/19 23 07/06/2022 CBC (INCL UDES DIFF/ PLT) eosinophils 0.7 % normal Not Available [facility] [address] [place], [address], 07/06/2022 15:35:06 06/30/19 23 07/06/2022 CBC (INCL UDES DIFF/ PLT) basophils 0.3 % normal Not Available [facility] [address], [address], 07/06/2022 15:35:06 06/30/19 23 07/06/2022 HEPAT ITIS B SURFA CE ANTIG EN W/REF L CONFI RM hepatitis B surface antigen NON-RE ACTIVE non-re active normal Not Available [facility] [address], [address], 07/06/2022 15:35:06 06/30/19 23 07/06/2022 HEPAT ITIS C AB W/REF L TO HCV RNA, QN, PCR hepatitis C antibody NON-RE ACTIVE non-re active normal Not Available [facility] [address], [address], 07/06/2022 15:35:07 06/30/19 23 07/06/2022 HEPAT ITIS C AB W/REF L TO HCV RNA, QN, PCR index 0.10 <1.00 normal HCV antib bereket was non-r eacti ve. There is no labor atory evide nce of HCV infec tion. In most cases , no furth er actio n is requi red. Howev er, if recen t HCV expos ure is suspe cted, a test for HCV RNA (test code 81673 ) is sugge sted. For addit ional infor matio n pleas e refer to http: //[facility] catio n.que stdia gnost ics.c om/fa q/FAQ 22v1 (This link is being provi ded for infor matio nal/ educa nela l purpo ses only. ) Not Available [facility] [address], [place], [address], 07/06/2022 15:35:07 06/30/19 23 07/06/2022 RUBEL LA AB (IGG) , IMMUN E STATU S rubella Ab (IgG), immune status 1.52 index normal Index Inter preta tion ----- ----- ----- ---- <0.90 Not consi stent with immun ity 0.90- 0.99 Equiv ocal > or = 1.00 Consi stent with immun ity The prese nce of rubel la IgG antib bereket sugge sts immun izati on or past or curre nt infec tion with rubel la virus . Not Available [facility] [address], [place], [address], 07/06/2022 15:35:08 06/30/1907/06/2022 HIV 1/2 ANTIG EN/AN TIBOD Y,FOU RTH GENER ATION W/RFL HIV Ag/Ab, 4TH gen NON-RE ACTIVE non-re active normal HIV-1 antig en and HIV-1 /HIV- 2 antib odies were not detec nba. There is no labor atory evide nce of HIV infec tion. PLEAS E NOTE: This infor matio n has been discl osed to you from recor ds whose confi denti ality may be prote cted by state law. If your state requi res such prote ction , then the state law prohi bits you from salima mota any furth er discl osure of the infor matio n witho ut the speci fic writt en conse nt of the perso n to whom it perta ins, or as other damon permi tted by law. A gener al autho rizat ion for the relea se of medic al or other infor matio n is NOT suffi cient for this purpo se. For addit ional infor matio n pleas e refer to http: //[facility] rajendra beaulieu.que stdia gnost ics.c om/fa q/FAQ 106 (This link is being provi ded for infor abilio bailey/ ed rondon l purpo ses only. ) The perfo rmanc e of this assay has not been clini jorge valid ated in patie nts less than 2 years old. Not Available [facility] [place] [address] [place], [address], 07/06/2022 15:35:08 06/30/19 23 07/06/2022 QNATA L(R) ADVAN LACHO number of fetuses? 1 Not Available [facility] [place] [address] [place], [address], 07/06/2022 15:35:09 06/30/19 23 07/06/2022 QNATA L(R) ADVAN LACHO advanced maternal age? NO Not Available [facility] [place] [address] [place], [address], 07/06/2022 15:35:09 06/30/19 23 07/06/2022 QNATA L(R) ADVAN LACHO abnormal scott? NO Not Available [facility] [place] [address] [place], [address], 07/06/2022 15:35:09 06/30/19 23 07/06/2022 QNATA L(R) ADVAN LACHO abnormal US? NO Not Available [facility] [place] [address] [place], [address], 07/06/2022 15:35:09 06/30/19 23 07/06/2022 QNATA L(R) ADVAN LACHO personal/fam history? NO Not Available [facility] [place] [address] [place], [address], 07/06/2022 15:35:09 06/30/19 23 07/06/2022 QNATA L(R) ADVAN LACHO interpretati on SEE NOTE This speci men showe d an expec nba repre senta tion of chrom osome 21, 18, and 13 mater ial. See Maria T chicas below . Not Available [place] [address] [place], [address], 07/06/2022 15:35:09 06/30/19 23 07/06/2022 QNATA L(R) ADVAN LACHO trisomy 21 (T21) Negati ve Not Available [facility] [place] [address] [place], [address], 07/06/2022 15:35:09 06/30/19 23 07/06/2022 QNATA L(R) ADVAN LACHO trisomy 18 (T18) Negati ve Not Available [address], [address], 07/06/2022 15:35:09 06/30/19 23 07/06/2022 QNATA L(R) ADVAN LACHO trisomy 13 (T13) Negati ve Not Available [place] [address] [place], [address], 07/06/2022 15:35:09 06/30/19 23 07/06/2022 QNATA L(R) ADVAN LACHO Y chromosome Detect ed Not Available [place] [address] [place], [address], 07/06/2022 15:35:09 06/30/19 23 07/06/2022 QNATA L(R) ADVAN LACHO Y chr. interpretati on SEE NOTE Consi stent with a male fetus . Not Available [facility] [place] [address] [place], [address], 07/06/2022 15:35:09 06/30/19 23 07/06/2022 QNATA L(R) ADVAN LACHO sex chromosome No aneupl oidy Not Available [facility] [place] [address] [place], [address], 07/06/2022 15:35:09 06/30/19 23 07/06/2022 QNATA L(R) ADVAN LACHO sex chromosome interp SEE NOTE No appar ent abnor malit y was detec nba. See Limi tatio ns below . Not Available [address], [address], 07/06/2022 15:35:09 06/30/19 23 07/06/2022 QNATA L(R) ADVAN LACHO microdeletio n Not detect ed Not Available [address], [address], 07/06/2022 15:35:09 06/30/19 23 07/06/2022 QNATA L(R) ADVAN LACHO microdeletio n interp SEE NOTE No appar ent abnor malit y was detec nba. See Maria T hernándezio ns below . Not Available [address], [address], 07/06/2022 15:35:09 06/30/19 23 07/06/2022 QNATA L(R) ADVAN LACHO gestational age(in weeks) 13 Not Available [address], [address], 07/06/2022 15:35:09 06/30/19 23 07/06/2022 QNATA L(R) ADVAN LACHO gestational age (in days) 6 Not Available [address], [address], 07/06/2022 15:35:09 06/30/19 23 07/06/2022 QNATA L(R) ADVAN LACHO fraction 12.90% Not Available [address], [address], 07/06/2022 15:35:09 06/30/19 23 07/06/2022 QNATA L(R) ADVAN LACHO laboratory comments SEE NOTE Labor atory resul ts and submi tted clini em infor matio n revie wed by Esdras vann, Ph.D. , FAC , CGMBS . Not Available [place] [address], [place], [address], 07/06/2022 15:35:09 06/30/19 23 07/06/2022 QNATA L(R) ADVAN LACHO limitations SEE NOTE QNata l(R) Advan lacho is a cell- free DNA test that scree ns for incre ased risk of certa in chrom osoma l abnor malit ies that may cause defec ts, inclu ding Triso my 21 (Down syndr ome), Triso my 18, Triso my 13, and certa in sex chrom osome abnor malit ies (i.e. , 45,X, 47,XX Y, 47,XX X, and 47,XY Y), as well as sex. In addit ion, if selec nba as an optio n, QNata l(R) Advan lacho can scree n for certa in micro delet ions (i.e. , 22q, 5p, 1p36, 15q, 11q, 8q, and 4p) that may cause defec ts. This test does not asses s the risk of abnor malit ies such as neura l tube defec ts or ventr al wall defec ts and shoul d not be consi dered in isola tion from other clini em findi ngs and labor atory test resul ts. QNata l(R) Advan lacho has been valid ated in pregn ancie s that are equal to or great er than 10 weeks gesta enla l age. QNata l(R) Advan lacho has been valid ated in [place] pregn ancie s for the triso mies and sex chrom osome abnor malit ies liste d above , as well as for micro delet ions, and for the deter minat ion of sex. Sex chrom osome aneup loidy marii sis is only perfo rmed in [place] pregn ancie s. The test has also been valid ated in twin pregn ancie s for the triso mies liste d above and for micro delet ions, but not for the sex chrom osome abnor malit ies due to limit ed data. The test has not been valid ated in [...] a resul t, the accur acy of the scree tarik test resul ts may be affec nba by [...] ving the exami hemanth chrom osome s and micro delet ion regio ns may be due to mater nal, place ntal, or mosai cism, by vanis luis armando twin syndr ome, or other unexp merary d cause s. Not Available [facility] [address], [place], [address], 07/06/2022 15:35:09 06/30/19 23 07/06/2022 QNATA L(R) ADVAN LACHO specificatio ns SEE NOTE Sensi tivit y Speci ficit y T21 >99.9 % >99.9 % T18 >99.9 % >99.9 % T13 >99.9 % >99.9 % Accur acy Y >99.9 % Perfo rmanc e of the QNata l Advan lacho labor atory -eddye loped test (LDT) has been deter mined based on inter nal marii tical asses sment . Not Available [facility] [address], [place], [address], 07/06/2022 15:35:09 06/30/19 23 07/06/2022 QNATA L(R) ADVAN LACHO methodology SEE NOTE Circu latin g cell- free (cf) DNA was isola nab from plasm a follo wed by detec tion on a massi vely paral lel seque ncing platf orm. Bioin forma tic marii sis was perfo rmed to deter mine the repre senta tion of chrom osome s 21, 18, 13, X and Y in circu latin g cell- free DNA. The repre senta tion of seque ncloy from the criti em regio ns invol eddie in 1p36 micro delet ion syndr ome (1p36 ), Jaun- Johan hhorn syndr ome (4p), Cri-d u-michael t syndr ome (5p), Anais Hollis john syndr ome (8p), Arpan sen syndr ome (11q) , Prade r Willi syndr ome/A ngelm an syndr ome (15q) , and DiGeo rge syndr ome (22q) is evalu ated for the detec tion of micro delet ions if reque sted. This test was devel oped, and its perfo rmanc e josé miguel cteri stics have been deter mined by [facility] . It has not been clear ed or appro eddie by the U.S. Food and Drug Admin istra tion. Perfo rmanc e josé miguel cteri stics refer to the marii tical perfo rmanc e of the test. This test is perfo rmed pursu ant to a licen se agree ment with [facility]. This test was devel oped and its marii tical perfo rmanc e josé miguel cteri stics have been deter mined by [facility] . It has not been clear ed or appro eddie by FDA. This assay has been valid ated pursu ant to the CLIA regul ation s and is used for clini em purpo ses. Not Available [facility] [place] [address] [place], [address], 07/06/2022 15:35:09 06/30/1907/06/2022 RPR (DX) W/REF L TITER AND CONFI RMATO RY TESTI NG RPR (DX) w/refl titer and confirmatory testing NON-RE ACTIVE non-re active normal Not Available [facility] [place] [address] [place], [address], 07/06/2022 15:35:09 06/30/1907/06/2022 ANTIB BEREKET SCREE N, RBC W/REF L [...] alloi mmuni zed pregn roula. Not Available [facility] [place] [address] [place], [address], 07/06/2022 15:35:10 06/30/1907/06/2022 ABO GROUP AND RH TYPE ABO group B Not Available [facility] [place] [address] [place], [address], 07/06/2022 15:35:10 06/30/1907/06/2022 ABO GROUP AND RH TYPE Rh type RH(D) POSITI VE For addit ional infor rhoda powers e refer to http: //edu catio n.Que stDia gnost ics.c om/fa q/FAQ 111 (This link is being provi ded for infor matio nal/ educa nela l purpo ses only. ) Not Available [facility] [place], [place], [address], 07/06/2022 15:35:10 06/30/19 23 07/06/2022 DRUG MONIT OR, PANEL 1, SCREE N, URINE amphetamines NEGATI VE NG/mL <500 See Note A See Note A Not Available [facility] [address] [address] [address], [place], [address], 07/06/2022 15:35:11 06/30/1907/06/2022 DRUG MONIT OR, PANEL 1, SCREE N, URINE barbiturates NEGATI VE NG/mL <300 See Note A See Note A Not Available [facility] [address] [address] [address], [place], [address], 07/06/2022 15:35:11 06/30/19 23 07/06/2022 DRUG MONIT OR, PANEL 1, SCREE N, URINE benzodiazepi lakeisha NEGATI VE NG/mL <100 See Note A See Note A Not Available [facility] [address] [address] [address], [place], [address], 07/06/2022 15:35:11 06/30/19 23 07/06/2022 DRUG MONIT OR, PANEL 1, SCREE N, URINE cocaine metabolite NEGATI VE NG/mL <150 See Note A See Note A Not Available [facility] [address] [address] [address], [place], [address], 07/06/2022 15:35:11 06/30/19 23 07/06/2022 DRUG MONIT OR, PANEL 1, SCREE N, URINE marijuana metabolite NEGATI VE NG/mL <20 See Note A See Note A Not Available [facility] [address] [address] [address], [place], [address], 07/06/2022 15:35:11 06/30/19 23 07/06/2022 DRUG MONIT OR, PANEL 1, SCREE N, URINE methadone metabolite NEGATI VE NG/mL <100 See Note A See Note A Not Available [address], [place], [address], 07/06/2022 15:35:11 06/30/19 23 07/06/2022 DRUG MONIT OR, PANEL 1, SCREE N, URINE opiates NEGATI VE NG/mL <100 See Note A See Note A Not Available [address] [address] [address], [place], [address], 07/06/2022 15:35:11 06/30/1907/06/2022 DRUG MONIT OR, PANEL 1, SCREE N, URINE oxycodone NEGATI VE NG/mL <100 See Note A See Note A Not Available [address] [address] [address], [place], [address], 07/06/2022 15:35:11 06/30/19 23 07/06/2022 DRUG MONIT OR, PANEL 1, SCREE N, URINE phencyclidin e NEGATI VE NG/mL <25 See Note A See Note A Not Available [address] [address], [place], [address], 07/06/2022 15:35:11 06/30/19 23 07/06/2022 DRUG MONIT OR, PANEL 1, SCREE N, URINE creatinine 132.5 mg/dL > or = 20.0 Not Available [address] [address], [place], [address], 07/06/2022 15:35:11 06/30/19 23 07/06/2022 DRUG MONIT OR, PANEL 1, SCREE N, URINE pH 7.9 4.5-9. 0 Not Available [address] [address] [address], [place], [address], 07/06/2022 15:35:11 06/30/19 23 07/06/2022 DRUG MONIT OR, PANEL 1, SCREE N, URINE oxidant NEGATI VE mcg/m L <200 Not Available [facility] [address] [address] [place], [address], 07/06/2022 15:35:11 06/30/19 23 07/06/2022 DRUG MONIT ORING TEMPL ATE notes and comments This drug testi ng is for medic al treat ment only. Marii sis was perfo rmed as non-f orens ic testi ng and these resul ts shoul d be used only by [facility] to rende r diagn osis or treat ment, or to monit or progr ess of medic al condi tions . Note A: The resul ts are presu mptiv e; based only on mabel tarik charlie ds, and they have not been confi rmed by a defin itive metho d. [facility] Provi ders needi ng Inter preta tion alejo tance , pleas e conta ct us at [phone] .[id number] XTOX ([phone] ) M-F, 8am to 10pm EST Not Available [facility] [address] [address], [place], [address], 07/06/2022 15:35:12 06/30/1907/06/2022 CULTU RE, URINE , ROUTI NE culture, urine, routine SEE NOTE CULTU RE, URINE , ROUTI NE Micro Numbe r: [id number] Test Statu s: Final Speci men Sourc [...] Cultu re Trans port Tube. Not Available [facility] [address] [address], [place], [address], 07/06/2022 15:35:12 06/30/19 23 07/09/2022 THINP REP TIS PAP (REFL ) HPV MRNA E6/E7 clinical information: normal Pregn ant Not Available [address], [address], 07/09/2022 16:14:26 06/30/19 23 07/09/2022 THINP REP TIS PAP (REFL ) HPV MRNA E6/E7 LMP: normal NA Not Available [address], [address], 07/09/2022 16:14:26 06/30/19 23 07/09/2022 THINP REP TIS PAP (REFL ) HPV MRNA E6/E7 prev. Pap: normal NA Not Available [address], [address], 07/09/2022 16:14:26 06/30/19 23 07/09/2022 THINP REP TIS PAP (REFL ) HPV MRNA E6/E7 prev. BX: normal NA Not Available [address], [address], 07/09/2022 16:14:26 06/30/19 23 07/09/2022 THINP REP TIS PAP (REFL ) HPV MRNA E6/E7 source: normal Cervi x, Endoc ervix Not Available [address], [address], 07/09/2022 16:14:26 06/30/19 23 07/09/2022 THINP REP TIS PAP (REFL ) HPV MRNA E6/E7 statement of adequacy: normal Satis facto ry for evalu ation . Endoc ervic al/tr ansfo rmati on zone compo nent prese nt. Not Available [address], [address], 07/09/2022 16:14:26 06/30/19 23 07/09/2022 THINP REP TIS PAP (REFL ) HPV MRNA E6/E7 general categorizati on: abnormal EPITH ELIAL CELL ABNOR MALIT Y Not Available [address] [address] [place], [address], 07/09/2022 16:14:26 06/30/19 23 07/09/2022 THINP REP TIS PAP (REFL ) HPV MRNA E6/E7 interpretati on/result: abnormal Low Grade Squam ous Intra epith elial Lesio n (LSIL ) Not Available [address] [address], [place], [address], 07/09/2022 16:14:26 06/30/19 23 07/09/2022 THINP REP TIS PAP (REFL ) HPV MRNA E6/E7 comment: normal This Pap test has been evalu ated with compu ter alejo nba techn ology . Sugge st clini em corre latio n and follo w-up as clini jorge appro priat e Not Available [address] [address] [place], [address], 07/09/2022 16:14:26 06/30/19 23 07/09/2022 THINP REP TIS PAP (REFL ) HPV MRNA E6/E7 cytotechnolo gist: normal YQ, CT( CP) CT scree tarik locat ion: [address] [address] [place] [address] Not Available [address] [address] [place], [address], 07/09/2022 16:14:26 06/30/19 23 07/09/2022 THINP REP TIS PAP (REFL ) HPV MRNA E6/E7 pathologist: normal Lizbeth metz M.D., Board Certi fied in [place]ato blaine Patho logy and Cytop athol ogy. Phone : [phone] (elec troni yumiko signa colt) Not Available [address] [address] [place], [address], 07/09/2022 16:14:26 06/30/19 23 07/09/2022 THINP REP TIS PAP (REFL ) HPV MRNA E6/E7 comment EXPLA NATOR Y NOTE: The Pap is a scree tarik test for cervi em cance r. It is not a diagn ostic test and is subje ct to false negat shilpa and false posit shilpa resul ts. It is most relia ble when a satis facto ry sampl e, regul gali obtai hemanth, is submi tted with relev ant clini em findi ngs and histo ry, and when the Pap resul t is evalu ated along with histo wagner and curre nt clini em infor abilio n. Not Available [address] [address] [place], [address], 07/09/2022 16:14:26 06/30/19 23 07/09/2022 HPV MRNA E6/E7 HPV MRNA E6/E7 Not Detect ed not detect ed normal Metho dolog y: Trans cript ion-M ediat ed Ampli ficat ion This assay detec ts E6/E7 viral messe nger RNA (mRNA ) from 14 high- risk HPV types (16,1 8,31, 33,35 ,39,4 5,51, 52,56 ,58,5 9,66, 68). Cervi em sourc es are requi red for HPV testi ng. If a vagin al sourc e from a patie nt who has had a total hyste recto my with remov al of cervi x was submi tted, pleas e conta ct the testi ng labor atory for alter nativ e testi ng optio ns. For addit ional infor rhoda powers e refer to http: //[facility] rajendra beaulieu.que stdia gnost ics.c om/fa q/FAQ 129v1 (This link if provi ded for infor abilio beaulieu/ educkatlin metz purpo ses only. ) Not Available [facility] [address] [place], [address], 07/09/2022 16:14:27 06/30/19 23 07/09/2022 CHLAM YDIA/ N. GONOR RHOEA E RNA, TMA, UROGE NITAL chlamydia trachomatis RNA, tma, urogenital NOT DETECT ED not detect ed normal Not Available [facility] [address], [address], 07/09/2022 16:14:27 06/30/19 23 07/09/2022 CHLAM YDIA/ N. GONOR RHOEA E RNA, TMA, UROGE NITAL neisseria gonorrhoeae RNA, tma, urogenital NOT DETECT ED not detect ed normal Not Available [facility] [address] [address] [place], [address], 07/09/2022 16:14:27 06/30/19 23 07/09/2022 CHLAM YDIA/ N. GONOR RHOEA E RNA, [...] e refer to https ://ed ati on.qu argenisJack Robie. com/f aq/FA Q154 (This link is being provi ded for infolexi beaulieu/ ed rondon l purpo ses only. ) Not Available [facility] [address] [address] [place], [address], 07/09/2022 16:14:27 12/02/19 23 12/04/2022 STREP TOCOC CUS, GROUP B CULTU RE streptococcu s, group B culture SEE NOTE STREP TOCOC CUS, GROUP B CULTU RE Micro Numbe r: [id number] Test Statu s: Final Speci men Sourc e: Vagin al/an orect al Speci men Quali ty: Adequ ate Resul t: No group B Strep tococ cus isola nba Note per CDC guide lines optim al recov mireya is achie eddie by swabb ing both the lower vagin a and rectu m (thro ugh the anal sphin cter) . Not Available [address], [address], 12/04/2022 08:11:57 02/05/20 25 02/08/2025 HIV 1/2 ANTIG EN/AN TIBOD Y,FOU RTH GENER ATION W/RFL HIV final interpretati on HIV NEGATI VE normal HIV-1 antig en and HIV-1 /HIV- 2 antib odies were not detec nba. There is no labor atory evide nce of HIV infec tion. Not Available [address], [address], 02/08/2025 14:18:29 02/05/2002/08/2025 HIV 1/2 ANTIG EN/AN TIBOD Y,FOU RTH GENER ATION W/RFL HIV Ag/Ab, screen NON-RE ACTIVE non-re active normal Not Available [address], [address], 02/08/2025 14:18:29 02/05/20 25 02/08/2025 URINA LYSIS , COMPL ETE color DARK YELLOW yellow normal Not Available [address], [address], 02/08/2025 14:18:29 02/05/20 25 02/08/2025 URINA LYSIS , COMPL ETE appearance CLOUDY clear abnormal Not Available [address], [address], 02/08/2025 14:18:29 02/05/20 25 02/08/2025 URINA LYSIS , COMPL ETE specific gravity 1.031 1.001- 1.035 normal Not Available [address], [address], 02/08/2025 14:18:29 12/01/20 25 02/08/2025 URINA LYSIS , COMPL ETE pH 6.5 5.0-8. 0 normal Not Available [address], [address], 02/08/2025 14:18:29 02/05/20 25 02/08/2025 URINA LYSIS , COMPL ETE glucose NEGATI VE negati ve normal Not Available [address], [address], 02/08/2025 14:18:29 02/05/20 25 02/08/2025 URINA LYSIS , COMPL ETE bilirubin NEGATI VE negati ve normal Not Available [address], [address], 02/08/2025 14:18:29 02/05/20 25 02/08/2025 URINA LYSIS , COMPL ETE ketones TRACE negati ve abnormal Not Available [address], [address], 02/08/2025 14:18:29 02/05/20 25 02/08/2025 URINA LYSIS , COMPL ETE occult blood NEGATI VE negati ve normal Not Available [address], [address], 02/08/2025 14:18:29 02/05/20 25 02/08/2025 URINA LYSIS , COMPL ETE protein TRACE negati ve abnormal Not Available [address], [address], 02/08/2025 14:18:29 02/05/20 25 02/08/2025 URINA LYSIS , COMPL ETE nitrite NEGATI VE negati ve normal Not Available [address], [address], 02/08/2025 14:18:29 02/05/20 25 02/08/2025 URINA LYSIS , COMPL ETE leukocyte esterase NEGATI VE negati ve normal Not Available [address], [address], 02/08/2025 14:18:29 02/05/20 25 02/08/2025 URINA LYSIS , COMPL ETE WBC 0-5 /hpf < or = 5 normal Not Available [address], [address], 02/08/2025 14:18:29 02/05/20 25 02/08/2025 URINA LYSIS , COMPL ETE RBC 0-2 /hpf < or = 2 normal Not Available [address], [address], 02/08/2025 14:18:29 02/05/20 25 02/08/2025 URINA LYSIS , COMPL ETE squamous epithelial cells 10-20 /hpf < or = 5 abnormal Not Available [address], [address], 02/08/2025 14:18:29 02/05/20 25 02/08/2025 URINA LYSIS , COMPL ETE bacteria MANY /hpf none seen abnormal Not Available [address], [address], 02/08/2025 14:18:29 02/05/20 25 02/08/2025 URINA LYSIS , COMPL ETE calcium oxalate crystals MODERA TE /hpf none or few abnormal Not Available [address], [address], 02/08/2025 14:18:29 02/05/20 25 02/08/2025 URINA LYSIS , COMPL ETE hyaline cast NONE SEEN /lpf none seen normal Not Available [address], [address], 02/08/2025 14:18:29 02/05/20 25 02/08/2025 URINA LYSIS , COMPL ETE note This urine was marii zed for the prese nce of WBC, RBC, bacte brenda, casts , and other forme d eleme nts. Only those eleme nts seen were repor nba. Not Available [address], [address], 02/08/2025 14:18:29 02/05/20 25 02/08/2025 CBC (INCL UDES DIFF/ PLT) white blood cell count 8.6 thous and/u L 3.8-10 .8 normal Not Available [facility] [address], [address], 02/08/2025 14:18:30 02/05/20 25 02/08/2025 CBC (INCL UDES DIFF/ PLT) red blood cell count 5.30 yariel on/uL 3.80-5 .10 high Not Available [facility] [address], [address], 02/08/2025 14:18:30 02/05/20 25 02/08/2025 CBC (INCL UDES DIFF/ PLT) hemoglobin 13.2 g/dL 11.7-1 5.5 normal Not Available [address], [address], 02/08/2025 14:18:30 02/05/20 25 02/08/2025 CBC (INCL UDES DIFF/ PLT) hematocrit 41.8 % 35.9-4 6.0 normal Not Available [facility] [address], [address], 02/08/2025 14:18:30 02/05/20 25 02/08/2025 CBC (INCL UDES DIFF/ PLT) MCV 78.9 fL 81.4-1 01.7 low Not Available [facility] [address], [address], 02/08/2025 14:18:30 02/05/20 25 02/08/2025 CBC (INCL UDES DIFF/ PLT) MCH 24.9 pg 27.0-3 3.0 low Not Available [address], [address], 02/08/2025 14:18:30 02/05/20 25 02/08/2025 CBC (INCL UDES DIFF/ PLT) MCHC 31.6 g/dL 31.6-3 5.4 normal For adult s, a sligh t decre ase in the calcu lated MCHC value (in the range of 30 to 32 g/dL) is most likel y not clini jorge signi ashley t; mark er, it shoul d be inter prete d with cauti on in [facility] n with other red cell pam eters and the patie nt's clini em condi tion. Not Available [address], [address], 02/08/2025 14:18:30 02/05/20 25 02/08/2025 CBC (INCL UDES DIFF/ PLT) RDW 13.2 % 11.0-1 5.0 normal Not Available [address], [address], 02/08/2025 14:18:30 02/05/20 25 02/08/2025 CBC (INCL UDES DIFF/ PLT) platelet count 230 thous and/u L 140-40 0 normal Not Available [facility] [address], [address], 02/08/2025 14:18:30 02/05/20 25 02/08/2025 CBC (INCL UDES DIFF/ PLT) MPV 11.4 fL 7.5-12 .5 normal Not Available [facility] [address], [address], 02/08/2025 14:18:30 02/05/20 25 02/08/2025 CBC (INCL UDES DIFF/ PLT) absolute neutrophils 6347 cells /uL 1500-7 800 normal Not Available [address], [address], 02/08/2025 14:18:30 02/05/20 25 02/08/2025 CBC (INCL UDES DIFF/ PLT) absolute lymphocytes 1703 cells /uL 850-39 00 normal Not Available [address], [address], 02/08/2025 14:18:30 02/05/20 25 02/08/2025 CBC (INCL UDES DIFF/ PLT) absolute monocytes 396 cells /uL 200-95 0 normal Not Available [address], [address], 02/08/2025 14:18:30 02/05/20 25 02/08/2025 CBC (INCL UDES DIFF/ PLT) absolute eosinophils 112 cells /uL 15-500 normal Not Available [address], [address], 02/08/2025 14:18:30 02/05/20 25 02/08/2025 CBC (INCL UDES DIFF/ PLT) absolute basophils 43 cells /uL 0-200 normal Not Available [address], [address], 02/08/2025 14:18:30 02/05/20 25 02/08/2025 CBC (INCL UDES DIFF/ PLT) neutrophils 73.8 % normal Not Available [address], [address], 02/08/2025 14:18:30 02/05/20 25 02/08/2025 CBC (INCL UDES DIFF/ PLT) lymphocytes 19.8 % normal Not Available [address], [address], 02/08/2025 14:18:30 02/05/20 25 02/08/2025 CBC (INCL UDES DIFF/ PLT) monocytes 4.6 % normal Not Available [facility] [address] [address] [place], [address], 02/08/2025 14:18:30 02/05/20 25 02/08/2025 CBC (INCL UDES DIFF/ PLT) eosinophils 1.3 % normal Not Available [facility] [address], [address], 02/08/2025 14:18:30 02/05/20 25 02/08/2025 CBC (INCL UDES DIFF/ PLT) basophils 0.5 % normal Not Available [facility] - [address], [address], 02/08/2025 14:18:30 02/05/20 25 02/08/2025 HEPAT ITIS B SURFA CE ANTIG EN W/REF L CONFI RM hepatitis B surface antigen NON-RE ACTIVE non-re active normal For addit ional infor abilio beaulieu, rhoda e refer to http: //[facility] kannapolisshyam n.que stdia gnost ics.c om/fa q/FAQ 202 (This link is being provi ded for infor abilio bailey/ educa nela l purpo ses only. ) Not Available [facility] [address], [address], 02/08/2025 14:18:30 02/05/20 25 02/08/2025 HEPAT ITIS [...] a test for HCV RNA (test code 26645 ) is sugge sted. For addit ional infor matio n pleas e refer to http: //[facility] anson n.que stdia gnost ics.c om/fa q/FAQ 22v1 (This link is being provi ded for infor abilio bailey/ educkatlin rondon l purpo ses only. ) Not Available [address], [address], 02/08/2025 14:18:31 02/05/20 25 02/08/2025 RUBEL LA [...] with rubel la virus . Not Available [facility] [address], [address], 02/08/2025 14:18:31 02/05/20 25 02/08/2025 QNATA L(R) ADVAN LACHO number of fetuses? 1 Not Available [facility] [address], [address], 02/08/2025 14:18:32 02/05/20 25 02/08/2025 QNATA L(R) ADVAN LACHO advanced maternal age? NO Not Available [facility] [address], [address], 02/08/2025 14:18:32 02/05/20 25 02/08/2025 QNATA L(R) ADVAN LACHO abnormal scott? NO Not Available [facility] [address], [address], 02/08/2025 14:18:32 02/05/20 25 02/08/2025 QNATA L(R) ADVAN LACHO abnormal US? NO Not Available [facility] [address], [address], 02/08/2025 14:18:32 02/05/20 25 02/08/2025 QNATA L(R) ADVAN LACHO personal/fam history? NO Not Available [address], [address], 02/08/2025 14:18:32 02/05/20 25 02/08/2025 QNATA L(R) ADVAN LACHO interpretati on SEE NOTE This speci men showe d an expec nba repre senta tion of chrom osome 21, 18, and 13 mater ial. See Maria T chicas below . Not Available [address], [address], 02/08/2025 14:18:32 02/05/20 25 02/08/2025 QNATA L(R) ADVAN LACHO trisomy 21 (T21) NEGATI VE Not Available [address], [address], 02/08/2025 14:18:32 02/05/20 25 02/08/2025 QNATA L(R) ADVAN LACHO trisomy 18 (T18) NEGATI VE Not Available [address], [address], 02/08/2025 14:18:32 02/05/20 25 02/08/2025 QNATA L(R) ADVAN LACHO trisomy 13 (T13) NEGATI VE Not Available [address], [address], 02/08/2025 14:18:32 02/05/20 25 02/08/2025 QNATA L(R) ADVAN LACHO Y chromosome NOT DETECT ED Not Available [address], [address], 02/08/2025 14:18:32 02/05/20 25 02/08/2025 QNATA L(R) ADVAN LACHO Y chr. interpretati on SEE NOTE Consi stent with a femal e fetus . Not Available [address] [address] [place], [address], 02/08/2025 14:18:32 02/05/20 25 02/08/2025 QNATA L(R) ADVAN LACHO sex chromosome NO ANEUPL OIDY Not Available [address] [address] [place], [address], 02/08/2025 14:18:32 02/05/20 25 02/08/2025 QNATA L(R) ADVAN LACHO sex chromosome interp SEE NOTE No appar ent abnor malit y was detec nba. See Limi tatio ns below . Not Available [address] [address] [address] , [place], [address], 02/08/2025 14:18:32 02/05/20 25 02/08/2025 QNATA L(R) ADVAN LACHO microdeletio n NOT DETECT ED Not Available [address] [address] [facility] [place], [address], 02/08/2025 14:18:32 02/05/20 25 02/08/2025 QNATA L(R) ADVAN LACHO microdeletio n interp SEE NOTE No appar ent abnor malit y was detec nba. See Limi tatio ns below . Not Available [address] [address] [address] , [place], [address], 02/08/2025 14:18:32 02/05/20 25 02/08/2025 QNATA L(R) ADVAN LACHO gestational age(in weeks) 10 Not Available [address] [address] [place], [address], 02/08/2025 14:18:32 02/05/20 25 02/08/2025 QNATA L(R) ADVAN LACHO gestational age (in days) 3 Not Available [facility] [address] [address] [place], [address], 02/08/2025 14:18:32 02/05/20 25 02/08/2025 QNATA L(R) ADVAN LACHO fraction 6.24% Not Available [address] [address] [place], [address], 02/08/2025 14:18:32 02/05/20 25 02/08/2025 QNATA L(R) ADVAN LACHO laboratory comments SEE NOTE Labor atory testi ng super vised and resul ts monit ored by Yeison De Los Santos, Ph.D. , FACMG , HCLD, CGMB. Not Available [address] [address] [place], [address], 02/08/2025 14:18:32 02/05/20 25 02/08/2025 QNATA L(R) [...] or other unexp merary d cause s. Bronson abdi cell- free DNA scree tarik does not [...] s of the test data. Not Available [facility] [address] [place], [address], 02/08/2025 14:18:32 02/05/20 25 02/08/2025 QNATA L(R) ADVAN LACHO specificatio ns SEE [...] marii tical asses sment . Not Available [facility] [address] [address], [place], [address], 02/08/2025 14:18:32 02/05/20 25 02/08/2025 QNATA L(R) ADVAN LACHO methodology SEE NOTE [...] micro delet ion syndr ome (1p36 ), Francisco Prado hhorn syndr ome (4p), Ally u-michael t syndr ome (5p), Anais r-Marikae john syndr ome (8q), Arpan sen syndr [...] ment with Se[facility] nom Labor atori es. Stanislaw Shukla lacho is a labor atory devel oped test that has been devel oped and valid ated, pursu ant to the Clini em Labor atory Impro vemen ts Amend ments of 1987 (CLIA ), and as such it has not been revie wed by FDA. Not Available [facility] [address] [address] [place], [address], 02/08/2025 14:18:32 02/05/20 25 02/08/2025 CHLAM YDIA/ N. GONOR RHOEA E RNA, TMA, UROGE NITAL chlamydia trachomatis RNA, tma, urogenital NOT DETECT ED not detect ed normal Not Available [facility] [address] [address] [place], [address], 02/08/2025 14:18:33 02/05/20 25 02/08/2025 CHLAM YDIA/ N. GONOR RHOEA E RNA, TMA, UROGE NITAL neisseria gonorrhoeae RNA, tma, urogenital NOT DETECT ED not detect ed normal Not Available [facility] [address] [address] [place], [address], 02/08/2025 14:18:33 02/05/20 25 02/08/2025 CHLAM YDIA/ [...] clini em purpo ses. For addit ional infor rhoda powers e refer to https ://ed ucati on.qu estdi [employer]iess. com/f aq/FA Q154 (This link is being provi ded for infor matio n/ educa nela l purpo ses only. ) Not Available [address], [address], 02/08/2025 14:18:33 02/05/20 25 02/08/2025 RPR (DX) W/REF L TITER AND T. PALLI DUM AB, IA RPR (DX) w/refl titer and confirmatory testing NON-RE ACTIVE non-re active normal No labor atory evide nce of syphi lis. If recen t expos ure is suspe cted, submi t a new sampl e in 2-4 weeks . Not Available [facility] [address], [address], 02/08/2025 14:18:33 02/05/20 25 02/08/2025 ANTIB BEREKET SCREE N, RBC W/REF L [...] alloi mmuni zed pregn roula. Not Available [facility] [address] [place], [address], 02/08/2025 14:18:34 02/05/20 25 02/08/2025 ABO GROUP AND RH TYPE ABO group B Not Available [facility] [address] [address] [place], [address], 02/08/2025 14:18:34 02/05/20 25 02/08/2025 ABO GROUP AND RH TYPE Rh type RH(D) POSITI VE For addit ional infor abilio nrhoda e refer to http: //[facility] catshyam beaulieu.Que stDia gnost ics.c om/fa q/FAQ 111 (This link is being provi ded for infor matio nal/ educa nela l purpo ses only. ) Not Available [facility] [address] [address] [address], [place], [address], 02/08/2025 14:18:34 02/05/20 25 02/08/2025 DRUG MONIT OR, PANEL 1, SCREE N, URINE amphetamines NEGATI VE NG/mL <500 See Note A See Note A Not Available [facility] [address] [address] [address], [place], [address], 02/08/2025 14:18:35 02/05/20 25 02/08/2025 DRUG MONIT OR, PANEL 1, SCREE N, URINE barbiturates NEGATI VE NG/mL <300 See Note A See Note A Not Available [facility] [address] [address] [address], [place], [address], 02/08/2025 14:18:35 02/05/20 25 02/08/2025 DRUG MONIT OR, PANEL 1, SCREE N, URINE benzodiazepi lakeisha NEGATI VE NG/mL <100 See Note A See Note A Not Available [facility] [address] [address] [address], [place], [address], 02/08/2025 14:18:35 02/05/20 25 02/08/2025 DRUG MONIT OR, PANEL 1, SCREE N, URINE cocaine metabolite NEGATI VE NG/mL <150 See Note A See Note A Not Available [facility] [address] [address] [address], [place], [address], 02/08/2025 14:18:35 02/05/20 25 02/08/2025 DRUG MONIT OR, PANEL 1, SCREE N, URINE marijuana metabolite NEGATI VE NG/mL <20 See Note A See Note A Not Available [facility] [address] [address] [address], [place], [address], 02/08/2025 14:18:35 02/05/20 25 02/08/2025 DRUG MONIT OR, PANEL 1, SCREE N, URINE methadone metabolite NEGATI VE NG/mL <100 See Note A See Note A Not Available [address] [address] [address], [place], [address], 02/08/2025 14:18:35 02/05/20 25 02/08/2025 DRUG MONIT OR, PANEL 1, SCREE N, URINE opiates NEGATI VE NG/mL <100 See Note A See Note A Not Available [address] [address] [address], [place], [address], 02/08/2025 14:18:35 02/05/20 25 02/08/2025 DRUG MONIT OR, PANEL 1, SCREE N, URINE oxycodone NEGATI VE NG/mL <100 See Note A See Note A Not Available [address] [address] [address], [place], [address], 02/08/2025 14:18:35 02/05/20 25 02/08/2025 DRUG MONIT OR, PANEL 1, SCREE N, URINE phencyclidin e NEGATI VE NG/mL <25 See Note A See Note A Not Available [address] [address] [address], [place], [address], 02/08/2025 14:18:35 02/05/20 25 02/08/2025 DRUG MONIT OR, PANEL 1, SCREE N, URINE creatinine 256.7 mg/dL > or = 20.0 Not Available [address] [address] [address], [place], [address], 02/08/2025 14:18:35 02/05/20 25 02/08/2025 DRUG MONIT OR, PANEL 1, SCREE N, URINE pH 6.9 4.5-9. 0 Not Available [address] [address] [address], [place], [address], 02/08/2025 14:18:35 02/05/20 25 02/08/2025 DRUG MONIT OR, PANEL 1, SCREE N, URINE oxidant NEGATI VE mcg/m L <200 Not Available [address] [address] [place], [address], 02/08/2025 14:18:35 02/05/20 25 02/08/2025 CULTU RE, URINE , ROUTI NE culture, urine, routine SEE NOTE CULTU RE, URINE , ROUTI NE Micro Numbe r: [id number] Test Statu s: Final Speci men Sourc e: Urine Speci men Quali ty: Adequ ate Resul t: Mixed genit al soindo isola nba. These super ficia l bacte brenda are not indic ative of a urina ry tract infec tion. No furth er organ ism ident ifica tion is warra nted on this speci men. If clini jorge indic ated, recol lect clean -catc h, mid-s tream urine and trans ana immed iatel y to Urine Cultu re Trans port Tube. Not Available [facility] [address] [place], [address], 02/08/2025 14:18:36 08/07/19 23 08/05/2022 US, obste tric, 2nd trime ster No observ ation record ed. [address], [address], 08/13/2022 11:22:22 09/22/19 23 09/20/2022 US, obste tric, follo w-up No observ ation record ed. [facility] [address], [address], 09/21/2022 19:17:06 01/16/20 25 01/07/2025 US, obste tric, 1st trime ster No observ ation record ed. [email or web address] [facility] [address] [place], [address], 01/16/2025 09:23:34 Result Notes None recorded. Problems Name Problem SNOMED Code Status Onset Date Resolution Date Notes Provider Name and Address Organization Details Recorded Time Candidias is of skin 08616869 Active 2022 MANJEET FRITZ [facility] 3 17:09:43 Normal in [facility] 453519093929 106 Active 2022 EARL OLVERA PAOLA [facility] 3 17:12:40 Normal in [facility] 619488282694 106 Completed 2022 EARL RODRIGUEZSCHGREGORY ANDRADE [facility] 3 17:12:40 75368567 Active 2024 [facility] 5 11:43:13 Problem Notes None recorded. Procedures Surgical History Date Name Laterality Status Provider Name and Address Organization Details Recorded Time 11/05/2022 Date of Last Pap Smear completed [facility] 12/31/2024 11:55:28 Imaging Results None recorded. Procedure [...] Available Vitamin daily active 0; Recorded 05/03/19 23 8:32AM by Earl ramirez, Office Visit; Not [...] Address Organization Details Last Updated DateTime 5 162.56 cm 47 kg/m2 190773. 31 g 97.5 [degF] 99 % 93 /min 124/90 mm[Hg] Stephanie Alvarado [facility] LMarcelleLXavier 11:36:03 Social History Question Answer Notes LastModified by Organizat ion Details LastModified Time Tobacco Smoking Status Never Smoker EARL claros [facility] LMarcelleLXavier 06/29/2022 15:25:26 What Was The Date Of Your Most Recent Tobacco Screening? 01/28/2025 [email or web address] Information not available 01/28/2025 What Is Your [...] Recorded Time IPV 2 completed [facility] 12:43:40 IPV 6 completed EARL claros [facility] LMarcelleLXavier 09/06/2022 12:43:40 IPV 2 completed TREBA NEUSCHWANDER null, [facility] 09/06/2022 12:43:40 IPV 2 completed TREBA NEUSCHWANDER null, [facility] 09/06/2022 12:43:40 MMR 3 completed TREBA NEUSCHWANDER null, [facility] 09/06/2022 12:43:40 MMR 6 completed TREBA NEUSCHWANDER null, [facility] 09/06/2022 12:43:40 pneumococcal conjugate PCV 7 2 completed TREBA NEUROXANNWANDER null, [facility] 09/06/2022 12:43:40 pneumococcal conjugate PCV 7 2 completed TREBA NEUROXANNWANDER null, [facility] 09/06/2022 12:43:40 pneumococcal conjugate PCV 7 2 completed TREBA NEUROXANNWANDER null, [facility] 09/06/2022 12:43:40 pneumococcal polysaccharide PPV23 3 completed AILYNBA PRAFULWANDER null, [facility] 09/06/2022 12:43:40 Tdap 6 completed TREBA NEUROXANNWANDER null, [facility] 09/06/2022 12:43:40 varicella 3 completed TREBA NEUROXANNWANDER null, [facility] 09/06/2022 12:43:40 Hep B, unspecified formulation 2 completed TREBA PRAFULWAANGIEER null, [facility] 09/06/2022 12:43:40 Hep B, unspecified formulation 2 completed TREBA NEUSCHWANDER null, [facility] 09/06/2022 12:43:40 Hep B, adolescent or pediatric 2 completed TREBA NEUSCHWANDER null, [facility] 09/06/2022 12:43:40 Hib (HbOC) 2 completed TREBA NEUSCHWANDER null, [facility] 09/06/2022 12:43:40 Hib (PRP-T) 3 completed TREBA NEUSCHWANDER null, [facility] 09/06/2022 12:43:40 Hib (PRP-T) 2 completed TREBA NEUSCHWANDER null, [facility] 09/06/2022 12:43:40 Hib (PRP-T) 2 completed TREBA NEUSCHWANDER null, [facility] 09/06/2022 12:43:40 meningococcal MCV4P 6 completed TREBA NEUSCHWANDER null, [facility] 09/06/2022 12:43:40 DTaP 3 completed TREBA NEUSCHWANDER null, [facility] 09/06/2022 12:43:40 DTaP 2 completed TREBA NEUSCHWANDER null, [facility] 09/06/2022 12:43:40 DTaP 6 completed TREBA NEUSCHWANDER null, [facility] 09/06/2022 12:43:40 DTaP 2 completed TREBA NEUSCHWANDER null, [facility] 09/06/2022 12:43:40 DTaP 2 completed EARL RODRIGUEZROXANNDINA claros, [place] - [facility] 09/06/2022 12:43:40 Past Encounters Encounter ID Performer Location Encounter Start Date Encounter Closed Date Diagnosis/Indication Diagnosis SNOMED-CT Code Diagnosis ICD10 Code Diagnosis IMO Codes Diagnosis Note [id number] Sherlyn Cervantes MD [facility] ([facility]) [address] [place] [phone] 12/31/2024 11:33:10 12/31/2024 13:02:50 82598989 Z34.90 - Confirm dating with a follow-up ultrasound - Regular visits scheduled every four weeks - Perform routine labs and optional genetic screening after 10 weeks History of hypertension 223126604 Z86.79 - Monitor and manage blood pressure with frequent checks - Discussed maintainin g a home blood pressure monitor for early detection Gastroesop hageal reflux disease 497804782 K21.9 - Discuss medication s like Pepcid for safe use - Encourage dietary changes to manage symptoms before medication use History of calculus of kidney 032173104 Z87.442 - Inform about symptoms and seek care if they arise [id number] Sherlyn Cervantes MD [facility] ([facility]) [address] [place] [phone] 01/07/2025 12:43:31 01/07/2025 14:53:33 Normal in multigravida 8252637730 00074 Z34.80 64320585 [id number] Sherlyn Cervantes MD [facility] ([facility]) [address] [place] [phone] 01/28/2025 11:28:07 01/28/2025 13:02:57 Multigravida 476118791 Z34.81 58393520 - Plan for blood pressure monitoring and recommende d bloodwork is in place. Health Concerns Section Related Observation LastModified by Organization Cliff block LastModified Time None Recorded Concern Status LastModified by Organization Details LastModified Time None Recorded Payers Encounter Date Sequence Insurance Name Policy Number Policy Torres Covered Member ID Torres Member ID Guarantor Name 01/28/2025 1 [employer] [place] ([place]ICA[place]PLACEMENT - HMO) [id number] Diana Gnogora [id number] Diana Gongora Notes Date Note Type Note Provider Name and Address Organization Details Recorded Time 025 text/ht ml jr ob routineReported by [...] ongoing blood pressure monitoring. Sherlyn Cervantes MD [address] [place] [address], [phone], [facility] 01/30/2025 14:51:07 OBGyn Episode Ob Episode Information Episode Created Date Number of Fetuses Patient Bloodtype Patient rh Status Prepregnancy Weight lbs Domestic Partner Domestic Partner Phone Father Name Aircraft Machinist Status 01/01/20 25 1 B Positive Arpan Flynn OPEN Fetus Data First Name Last Name Admitted to NICU Weight (g) Sex Living Outcome Pediatric Complications Fetus ID Race Codes Race Delivery Type [id number] Abe Calculation Initial Abe Date Initial Exam [...] Gestation 0 dcrase 01/09/2025 08/31/19 26 0 Pre- Flowsheet Flowsheet Date 01/01/2025 Odonnell Score Blood Edema Fundus Height Fundus Units Glucose Ketones Leukocytes Nitrite Labor Signs Protein Cervic Dilation Cervic Effacement Cervic Station Type Weight in lbs Pre/Post Dialysis Refused 269.324911067670 BP Diastolic BP Location Tested BP Systolic [...] Weight in lbs Pre/Post Dialysis Refused Weight 274.752806017449 BP Diastolic BP Location Tested BP Systolic BP Type 90 124 Fetus Heart Rate Present Fetus Movement Comments Menstrual History Last Menstrual Date Menses Monthly On Bcp Conception Prior Menses Frequency Hcg Plus Date Menarche Onset Age true Genetic Screening And Infection History Question Response Note Patient's Age Will Be 35 Years Or Older At Estim ated Date of Delivery false Thalassemia (Wolof, Rwandan, Mediterranean, Or Background): MCV < 80 false Neural Tube Defect (Meningomyelocele, Spina Bifi da, Or Anencephaly) false Congenital Heart Defect false Down Syndrome false Dominic-Sachs (eg, Cheondoism, Cajun, Sierra Leonean-Solomon Islander) f alse Jay Disease false Sickle Cell Disease Or Trait () false Hemophilia Or Other Blood Disorders false Muscular Dystrophy false Cystic Fibrosis false Gilbert's Chorea false Intellectual Disability/Autism false If Yes, [...] Domestic Partner Domestic Partner Phone Father Name Aircraft Machinist Status 06/30/19 23 1 B Positive Arpan Flynn CLOSED Fetus Data First Name Last Name Admitted to NICU Weight (g) Sex Living Outcome Pediatric Complications Fetus ID Race Codes Race Delivery Type [id number] Problems Problem Notes Follow up ultrasound for out flow tracks. Problem Name Start Date End Date Resolution Snomed Code Not e Normal in multigravida 09/21/2022 [id number] Abe Calculation Initial Abe Date Initial Exam [...] Weight in lbs Pre/Post Dialysis Refused Weight 241.064720248079 BP Diastolic BP Location Tested BP Systolic [...] ation, placenta posterior, grade 0, normal AFV, [id number]-25/23/23, EGA-19.3, RVOT and LVOT not seen, anatomic [...] Weight in lbs Pre/Post Dialysis Refused Weight 249.208145902043 BP Diastolic BP Location Tested BP Systolic [...] Weight in lbs Pre/Post Dialysis Refused Weight 258.540130937000 BP Diastolic BP Location Tested BP Systolic [...] Weight in lbs Pre/Post Dialysis Refused Weight 260.463462308853 BP Diastolic BP Location Tested BP Systolic [...] Weight in lbs Pre/Post Dialysis Refused Weight 268.852958446129 BP Diastolic BP Location Tested BP Systolic [...] Weight in lbs Pre/Post Dialysis Refused Weight 268.034085030090 BP Diastolic BP Location Tested BP Systolic [...] Weight in lbs Pre/Post Dialysis Refused Weight 272.011608778727 BP Diastolic BP Location Tested BP Systolic [...] Weight in lbs Pre/Post Dialysis Refused Weight 276.629508035511 BP Diastolic BP Location Tested BP Systolic [...] Weight in lbs Pre/Post Dialysis Refused Weight 279.146526815423 BP Diastolic BP Location Tested BP Systolic [...] Weight in lbs Pre/Post Dialysis Refused Weight 282.625871840216 BP Diastolic BP Location Tested BP Systolic [...] Weight in lbs Pre/Post Dialysis Refused Weight 284.552066677132 BP Diastolic BP Location Tested BP Systolic [...] Weight in lbs Pre/Post Dialysis Refused Weight 269.969282686109 BP Diastolic BP Location Tested BP Systolic BP Type 82 118 Fetus Heart Rate Present Fetus Movement Comments Menstrual History Last Menstrual Date Menses Monthly On Bcp Conception Prior Menses Frequency Hcg Plus Date Menarche Onset Age Genetic Screening And Infection History Question Response Note Patient's Age Will Be 35 Yea rs Or Older At Estimated Date of Delivery false Thalassemia (Wolof, Rwandan, Mediterranean, Or Background): MCV < 80 false Neural Tube Defect (Meningom yelocele, Spina Bifida, Or Anencephaly) false Congenital Heart Defect false Down Syndrome false Dominic-Sachs (eg, Cheondoism, Cajun, Sierra Leonean-Solomon Islander) f alse Jay Disease false Sickle Cell Disease Or Trait () false Hemophilia Or Other Blood Disorders false Muscular Dystrophy false Cystic Fibrosis false Newton's Chorea false Intellectual Disability/Autism false If Yes, [...]
--- OUTSIDE RECORDS SUMMARY | 2025-02-25 01:12 | XMS_ITS | Continuity of Care Document ---
Author Organization [facility], LJackelin, [facility] ([facility]) Address [address] [place] [address] Care Team Providers Care Waterproof Bag Sewer Name Role Phone SHERLYN CERVANTES Primary Care [...] current . dcrase Not available 01/01/2025 10:55:45 Plan of Treatment Reminders Order Date Submit [...] Not available Not available Not available Lab None recorde d. Referral None recorde d. Procedures None recorde d. Surgeries None recorde d. Imaging None recorde d. Medication Orders None recorde d. Patient TargetsNo targets recorded. Patient Instructions Encounter Date Encounter Id Patient Instructions Last Modified By Organization Details Last Modified Time 12/31/2024 [id number] - Schedule follow-up ultrasound before next visit [...] the . [id number] Not available 12/31/2024 12:14:28 Reason for Referral None Reported. Results Created Date Observation Date Name Description Value Unit Range Abnormal Flag Note LastModifiedBy Organization Detail LastModifiedTime 10/16/1910/15/2022 CBC WBC 13.1 x10 4.0-10 .5 high Not Available [facility] [address] [facility] 1, [place], [address], 10/15/2022 14:45:23 10/16/19 23 10/15/2022 CBC RBC 4.70 x10 3.50-5 .50 Not Available [facility] [address] [facility] 1, [place], [address], 10/15/2022 14:45:23 10/16/19 23 10/15/2022 CBC HGB 12.1 g/dL 12.0-1 6.0 Not Available [facility] [address] [facility] 1, [place], [address], 10/15/2022 14:45:23 10/16/19 23 10/15/2022 CBC HCT 36.7 % 37.0-4 7.0 low Not Available [facility] [address] [facility] 1, [place], [address], 10/15/2022 14:45:23 10/16/19 23 10/15/2022 CBC MCV 78.0 fL 80.0-9 9.9 low Not Available [facility] [address] [facility] 1, [place], [address], 10/15/2022 14:45:23 10/16/19 23 10/15/2022 CBC MCH 25.7 pg 27.0-3 2.0 low Not Available [facility] [address] [facility] 1, [place], [address], 10/15/2022 14:45:23 10/16/19 23 10/15/2022 CBC MCHC 33.0 g/dL 32.0-3 6.0 Not Available [facility] [address] [facility] 1, [place], [address], 10/15/2022 14:45:23 10/16/19 23 10/15/2022 CBC RDW 16.1 % 11.5-1 4.6 high Not Available [facility] [address] [facility] 1, [place], [address], 10/15/2022 14:45:23 10/16/19 23 10/15/2022 CBC plt 252.0 x10 140.0- 451.0 Not Available [facility] [address] [facility], [place], [address], 10/15/2022 14:45:23 10/16/19 23 10/15/2022 CBC lymphocytes % 15.1 % 20.0-5 0.0 low Not Available [facility] [address] [facility] 1, [place], [address], 10/15/2022 14:45:23 10/16/19 23 10/15/2022 CBC granulcytes % 79.6 % 30.0-7 0.0 high Not Available [facility] [address] [facility] 1, [place], [address], 10/15/2022 14:45:23 10/16/19 23 10/15/2022 CBC monocytes % 3.9 % 2.0-10 .0 Not Available [facility] [address] [facility] 1, [place], [address], 10/15/2022 14:45:23 10/16/1910/15/2022 CBC granulcytes# 10.4 x10 Not Elizabeth ilable [facility] [address] [facility] 1, [place], [address], 10/15/2022 14:45:23 10/16/1910/15/2022 CBC lymphocytes # 2.0 x10 Not Available [facility] [address] [facility] 1, [place], [address], 10/15/2022 14:45:23 10/16/19 23 10/15/2022 CBC monocytes # 0.5 x10 Not Avai lable [facility] [address] [facility] 1, [place], [address], 10/15/2022 14:45:23 10/16/19 23 10/15/2022 GLUCO SE SCREE N glucose screen 119.0 mg/dL panic high Not Available [facility] [address] [facility] 1, [place], [address], 10/15/2022 16:13:44 06/30/19 23 07/06/2022 URINA LYSIS , COMPL ETE color YELLOW yellow normal Not Available [facility] [address] [address] [place], [address], 07/06/2022 15:35:05 06/30/19 23 07/06/2022 URINA LYSIS , COMPL ETE appearance CLOUDY clear abnormal Not Available [facility] [address] [address] [place], [address], 07/06/2022 15:35:05 06/30/19 23 07/06/2022 URINA LYSIS , COMPL ETE specific gravity 1.020 1.001- 1.035 normal Not Available [facility] [address], [address], 07/06/2022 15:35:05 06/30/19 23 07/06/2022 URINA LYSIS , COMPL ETE pH 7.5 5.0-8. 0 normal Not Available [facility] [address] [place], [address], 07/06/2022 15:35:05 06/30/19 23 07/06/2022 URINA LYSIS , COMPL ETE glucose NEGATI VE negati ve normal Not Available [facility] [address] [place], [address], 07/06/2022 15:35:05 06/30/19 23 07/06/2022 URINA LYSIS , COMPL ETE bilirubin NEGATI VE negati ve normal Not Available [address], [address], 07/06/2022 15:35:05 06/30/19 23 07/06/2022 URINA LYSIS , COMPL ETE ketones NEGATI VE negati ve normal Not Available [address], [address], 07/06/2022 15:35:05 06/30/19 23 07/06/2022 URINA LYSIS , COMPL ETE occult blood NEGATI VE negati ve normal Not Available [address], [address], 07/06/2022 15:35:05 06/30/19 23 07/06/2022 URINA LYSIS , COMPL ETE protein NEGATI VE negati ve normal Not Available [address], [address], 07/06/2022 15:35:05 06/30/19 23 07/06/2022 URINA LYSIS , COMPL ETE nitrite NEGATI VE negati ve normal Not Available [facility] [address], [address], 07/06/2022 15:35:05 06/30/19 23 07/06/2022 URINA LYSIS , COMPL ETE leukocyte esterase NEGATI VE negati ve normal Not Available [facility] [address], [address], 07/06/2022 15:35:05 06/30/19 23 07/06/2022 URINA LYSIS , COMPL ETE WBC NONE SEEN /hpf < or = 5 normal Not Available [address], [address], 07/06/2022 15:35:05 06/30/19 23 07/06/2022 URINA LYSIS , COMPL ETE RBC NONE SEEN /hpf < or = 2 normal Not Available [address], [address], 07/06/2022 15:35:05 06/30/19 23 07/06/2022 URINA LYSIS , COMPL ETE squamous epithelial cells 0-5 /hpf < or = 5 Not Available [address], [address], 07/06/2022 15:35:05 06/30/19 23 07/06/2022 URINA LYSIS , COMPL ETE bacteria FEW /hpf none seen abnormal Not Available [address], [address], 07/06/2022 15:35:05 06/30/19 23 07/06/2022 URINA LYSIS , COMPL ETE hyaline cast NONE SEEN /lpf none seen normal Not Available [address], [address], 07/06/2022 15:35:05 06/30/19 23 07/06/2022 CBC (INCL UDES DIFF/ PLT) white blood cell count 9.0 thous and/u L 3.8-10 .8 normal Not Available [address], [address], 07/06/2022 15:35:06 06/30/19 23 07/06/2022 CBC (INCL UDES DIFF/ PLT) red blood cell count 5.49 yariel on/uL 3.80-5 .10 high Not Available [address], [address], 07/06/2022 15:35:06 06/30/19 23 07/06/2022 CBC (INCL UDES DIFF/ PLT) hemoglobin 12.9 g/dL 11.7-1 5.5 normal Not Available [address], [address], 07/06/2022 15:35:06 06/30/19 23 07/06/2022 CBC (INCL UDES DIFF/ PLT) hematocrit 41.3 % 35.0-4 5.0 normal Not Available [address], [address], 07/06/2022 15:35:06 06/30/19 23 07/06/2022 CBC (INCL UDES DIFF/ PLT) MCV 75.2 fL 80.0-1 00.0 low Not Available [facility] [address], [address], 07/06/2022 15:35:06 06/30/19 23 07/06/2022 CBC (INCL UDES DIFF/ PLT) MCH 23.5 pg 27.0-3 3.0 low Not Available [facility] [address], [address], 07/06/2022 15:35:06 06/30/19 23 07/06/2022 CBC (INCL UDES DIFF/ PLT) MCHC 31.2 g/dL 32.0-3 6.0 low Not Available [address], [address], 07/06/2022 15:35:06 06/30/19 23 07/06/2022 CBC (INCL UDES DIFF/ PLT) RDW 14.9 % 11.0-1 5.0 normal Not Available [address], [address], 07/06/2022 15:35:06 06/30/19 23 07/06/2022 CBC (INCL UDES DIFF/ PLT) platelet count 217 thous and/u L 140-40 0 normal Not Available [address], [address], 07/06/2022 15:35:06 06/30/19 23 07/06/2022 CBC (INCL UDES DIFF/ PLT) MPV 11.8 fL 7.5-12 .5 normal Not Available [address], [address], 07/06/2022 15:35:06 06/30/19 23 07/06/2022 CBC (INCL UDES DIFF/ PLT) absolute neutrophils 6696 cells /uL 1500-7 800 normal Not Available [address], [address], 07/06/2022 15:35:06 06/30/19 23 07/06/2022 CBC (INCL UDES DIFF/ PLT) absolute lymphocytes 1764 cells /uL 850-39 00 normal Not Available [address], [address], 07/06/2022 15:35:06 06/30/19 23 07/06/2022 CBC (INCL UDES DIFF/ PLT) absolute monocytes 450 cells /uL 200-95 0 normal Not Available [address], [address], 07/06/2022 15:35:06 06/30/19 23 07/06/2022 CBC (INCL UDES DIFF/ PLT) absolute eosinophils 63 cells /uL 15-500 normal Not Available [address], [address], 07/06/2022 15:35:06 06/30/19 23 07/06/2022 CBC (INCL UDES DIFF/ PLT) absolute basophils 27 cells /uL 0-200 normal Not Available [facility] [address], [address], 07/06/2022 15:35:06 06/30/19 23 07/06/2022 CBC (INCL UDES DIFF/ PLT) neutrophils 74.4 % normal Not Available [address], [address], 07/06/2022 15:35:06 06/30/19 23 07/06/2022 CBC (INCL UDES DIFF/ PLT) lymphocytes 19.6 % normal Not Available [address], [address], 07/06/2022 15:35:06 06/30/19 23 07/06/2022 CBC (INCL UDES DIFF/ PLT) monocytes 5.0 % normal Not Available [facility] [address], [address], 07/06/2022 15:35:06 06/30/19 23 07/06/2022 CBC (INCL UDES DIFF/ PLT) eosinophils 0.7 % normal Not Available [address], [address], 07/06/2022 15:35:06 06/30/19 23 07/06/2022 CBC (INCL UDES DIFF/ PLT) basophils 0.3 % normal Not Available [address], [address], 07/06/2022 15:35:06 06/30/19 23 07/06/2022 HEPAT ITIS B SURFA CE ANTIG EN W/REF L CONFI RM hepatitis B surface antigen NON-RE ACTIVE non-re active normal Not Available [address], [address], 07/06/2022 15:35:06 06/30/19 23 07/06/2022 HEPAT ITIS C AB W/REF L TO HCV RNA, QN, PCR hepatitis C antibody NON-RE ACTIVE non-re active normal Not Available [address], [address], 07/06/2022 15:35:07 06/30/19 23 07/06/2022 HEPAT ITIS [...] a test for HCV RNA (test code 50297 ) is sugge sted. For addit ional infor abilio christofer pleas e refer to http: //[facility] rajendra beaulieu.que stdia gnost ics.c om/fa q/FAQ 22v1 (This link is being provi ded for infor wilmershyam nal/ educa nela l purpo ses only. ) Not Available [facility] [address] [address] [place], [address], 07/06/2022 15:35:07 06/30/1907/06/2022 RUBEL LA AB (IGG) , IMMUN E [...] with rubel la virus . Not Available [facility] [address] [address] [address], [place], [address], 07/06/2022 15:35:08 06/30/1907/06/2022 HIV 1/2 ANTIG EN/AN TIBOD Y,FOU RTH GENER ATION W/RFL HIV Ag/Ab, 4TH gen NON-RE ACTIVE non-re active normal HIV-1 antig en and HIV-1 /HIV- 2 antib odies were not detec nba. There is no labor atory evide nce of HIV infec tion. PLEAS E NOTE: This infor abilio beaulieu has been discl osed to you from recor ds whose confi denti ality may be prote cted by state law. If your state requi res such prote ction , then the state law prohi bits you from makin g any furth er discl osure of the infor matio n witho ut the speci fic writt en conse nt of the perso n to whom it perta ins, or as other damon permi tted by law. A gener al autho rosalba ion for the relea se of medic al or other infor matio n is NOT suffi cient for this purpo se. For addit ional infor matio n pleas e refer to http: //[facility] catshyam n.que stdia gnost ics.c om/fa q/FAQ 106 (This link is being provi ded for infor matio nal/ educa nela l purpo ses only. ) The perfo rmanc e of this assay has not been clini jorge valid ated in patie nts less than 2 years old. Not Available [facility] [address] [address] [place], [address], 07/06/2022 15:35:08 06/30/19 23 07/06/2022 QNATA L(R) ADVAN LACHO number of fetuses? 1 Not Available [facility] [address] [address] [place], [address], 07/06/2022 15:35:09 06/30/19 23 07/06/2022 QNATA L(R) ADVAN LACHO advanced maternal age? NO Not Available [facility] [address] [address] [place], [address], 07/06/2022 15:35:09 06/30/19 23 07/06/2022 QNATA L(R) ADVAN LACHO abnormal scott? NO Not Available [facility] [address] [address] [place], [address], 07/06/2022 15:35:09 06/30/19 23 07/06/2022 QNATA L(R) ADVAN LACHO abnormal US? NO Not Available [facility] [address] [address] [place], [address], 07/06/2022 15:35:09 06/30/19 23 07/06/2022 QNATA L(R) ADVAN LACHO personal/fam history? NO Not Available [address], [address], 07/06/2022 15:35:09 06/30/19 23 07/06/2022 QNATA L(R) ADVAN LACHO interpretati on SEE NOTE This speci men showe d an expec nba repre senta tion of chrom osome 21, 18, and 13 mater ial. See Maria T chicas below . Not Available [address] [place], [address], 07/06/2022 15:35:09 06/30/19 23 07/06/2022 QNATA L(R) ADVAN LACHO trisomy 21 (T21) Negati ve Not Available [address], [address], 07/06/2022 15:35:09 06/30/19 23 07/06/2022 QNATA L(R) ADVAN LACHO trisomy 18 (T18) Negati ve Not Available [address], [address], 07/06/2022 15:35:09 06/30/19 23 07/06/2022 QNATA L(R) ADVAN LACHO trisomy 13 (T13) Negati ve Not Available [address], [address], 07/06/2022 15:35:09 06/30/19 23 07/06/2022 QNATA L(R) ADVAN LACHO Y chromosome Detect ed Not Available [address], [address], 07/06/2022 15:35:09 06/30/19 23 07/06/2022 QNATA L(R) ADVAN LACHO Y chr. interpretati on SEE NOTE Consi stent with a male fetus . Not Available [facility] [address] [address] , [place], [address], 07/06/2022 15:35:09 06/30/19 23 07/06/2022 QNATA L(R) ADVAN LACHO sex chromosome No aneupl oidy Not Available [facility] [address] [address] [address] , [place], [address], 07/06/2022 15:35:09 06/30/19 23 07/06/2022 QNATA L(R) ADVAN LACHO sex chromosome interp SEE NOTE No appar ent abnor malit y was detec nba. See Limi tatio ns below . Not Available [facility] [address], [place], [address], 07/06/2022 15:35:09 06/30/19 23 07/06/2022 QNATA L(R) ADVAN LACHO microdeletio n Not detect ed Not Available [facility] [address] [address] [address] , [place], [address], 07/06/2022 15:35:09 06/30/19 23 07/06/2022 QNATA L(R) ADVAN LACHO microdeletio n interp SEE NOTE No appar ent abnor malit y was detec nba. See Limi tatio ns below . Not Available [address] [address] [address], [place], [address], 07/06/2022 15:35:09 06/30/19 23 07/06/2022 QNATA L(R) ADVAN LACHO gestational age(in weeks) 13 Not Available [facility] [address], [place], [address], 07/06/2022 15:35:09 06/30/19 23 07/06/2022 QNATA L(R) ADVAN LACHO gestational age (in days) 6 Not Available [facility] [address] [address] [place], [address], 07/06/2022 15:35:09 06/30/19 23 07/06/2022 QNATA L(R) ADVAN LACHO fraction 12.90% Not Available [facility] [address] [place], [address], 07/06/2022 15:35:09 06/30/19 23 07/06/2022 QNATA L(R) ADVAN LACHO laboratory comments SEE NOTE Labor atory resul ts and submi tted clini em infor matio n revie wed by Esdras vann, Ph.D. , FACMG , CGMBS . Not Available [facility] [address] [place], [address], 07/06/2022 15:35:09 06/30/19 23 07/06/2022 QNATA L(R) [...] or great er than 10 weeks gesta nela l age. QNata l(R) Advan lacho has [...] unexp merary d cause s. Not Available [address] [address] [place], [address], 07/06/2022 15:35:09 06/30/19 23 07/06/2022 QNATA L(R) [...] marii tical asses sment . Not Available [address] [address] [place], [address], 07/06/2022 15:35:09 06/30/19 23 07/06/2022 QNATA L(R) [...] ), Francisco Prado hhorn syndr ome (4p), Cri-d u-michael t syndr ome (5p), Anais Hollis john syndr ome (8p), Arpan sen syndr ome (11q) , Gabriele r Willi syndr ome/A ngelm an syndr ome (15q) , and DiGeo rge syndr ome (22q) is evalu ated for the detec tion of micro delet ions if reque sted. This test was devel oped, and its perfo rmanc e josé miguel cteri stics have been deter mined by [facility], [employer] . It has not been clear ed [...] been deter mined by [facility] [place] [employer] . It has not been clear ed or appro eddie by FDA. This assay has been valid ated pursu ant to the CLIA regul ation s and is used for clini em purpo ses. Not Available [facility] [address] [address] [place], [address], 07/06/2022 15:35:09 06/30/19 23 07/06/2022 RPR (DX) W/REF L TITER AND CONFI RMATO RY TESTI NG RPR (DX) w/refl titer and confirmatory testing NON-RE ACTIVE non-re active normal Not Available [facility] [address] [address] [place], [address], 07/06/2022 15:35:09 06/30/19 23 07/06/2022 ANTIB BEREKET SCREE N, RBC W/REF L [...] alloi mmuni zed pregn roula. Not Available [facility] [address] [address] [place], [address], 07/06/2022 15:35:10 06/30/1907/06/2022 ABO GROUP AND RH TYPE ABO group B Not Available [address] [address] [address], [place], [address], 07/06/2022 15:35:10 06/30/1907/06/2022 ABO GROUP AND RH TYPE Rh type RH(D) POSITI VE For addit ional infor rhoda powers e refer to http: //[facility] rajendra Subramanian stDia gnost ics.c om/fa q/FAQ 111 (This link is being provi ded for infor abilio bailey/ educa nela metz purpo ses only. ) Not Available [address] [address] [place], [address], 07/06/2022 15:35:10 06/30/1907/06/2022 DRUG MONIT OR, PANEL 1, SCREE N, URINE amphetamines NEGATI VE NG/mL <500 See Note A See Note A Not Available [facility] [address] [address] [address], [place], [address], 07/06/2022 15:35:11 06/30/1907/06/2022 DRUG MONIT OR, PANEL 1, SCREE N, URINE barbiturates NEGATI VE NG/mL <300 See Note A See Note A Not Available [facility] [address] [address] [place], [address], 07/06/2022 15:35:11 06/30/19 23 07/06/2022 DRUG MONIT OR, PANEL 1, SCREE N, URINE benzodiazepi lakeisha NEGATI VE NG/mL <100 See Note A See Note A Not Available [facility] [address] [address] [place], [address], 07/06/2022 15:35:11 06/30/1907/06/2022 DRUG MONIT OR, PANEL 1, SCREE N, URINE cocaine metabolite NEGATI VE NG/mL <150 See Note A See Note A Not Available [facility] [address] [address] [place], [address], 07/06/2022 15:35:11 06/30/19 23 07/06/2022 DRUG MONIT OR, PANEL 1, SCREE N, URINE marijuana metabolite NEGATI VE NG/mL <20 See Note A See Note A Not Available [address] [address] [address], [place], [address], 07/06/2022 15:35:11 06/30/19 23 07/06/2022 DRUG MONIT OR, PANEL 1, SCREE N, URINE methadone metabolite NEGATI VE NG/mL <100 See Note A See Note A Not Available [facility] [address] [address], [place], [address], 07/06/2022 15:35:11 06/30/19 23 07/06/2022 DRUG MONIT OR, PANEL 1, SCREE N, URINE opiates NEGATI VE NG/mL <100 See Note A See Note A Not Available [facility] [address] [address], [place], [address], 07/06/2022 15:35:11 06/30/19 23 07/06/2022 DRUG MONIT OR, PANEL 1, SCREE N, URINE oxycodone NEGATI VE NG/mL <100 See Note A See Note A Not Available [facility] [address] [address] [address], [place], [address], 07/06/2022 15:35:11 06/30/19 23 07/06/2022 DRUG MONIT OR, PANEL 1, SCREE N, URINE phencyclidin e NEGATI VE NG/mL <25 See Note A See Note A Not Available [facility] [address] [address] [address], [place], [address], 07/06/2022 15:35:11 06/30/19 23 07/06/2022 DRUG MONIT OR, PANEL 1, SCREE N, URINE creatinine 132.5 mg/dL > or = 20.0 Not Available [address] [address] [address], [place], [address], 07/06/2022 15:35:11 06/30/19 23 07/06/2022 DRUG MONIT OR, PANEL 1, MARIEE N, URINE pH 7.9 4.5-9. 0 Not Available [facility] [address] [address] [address] , [place], [address], 07/06/2022 15:35:11 06/30/19 23 07/06/2022 DRUG MONIT OR, PANEL 1, SCREE N, URINE oxidant NEGATI VE mcg/m L <200 Not Available [facility] [address] [address] [address], [place], [address], 07/06/2022 15:35:11 06/30/1907/06/2022 DRUG MONIT ORING TEMPL ATE notes and comments This drug testi ng is for medic al treat ment only. Marii sis was perfo rmed as non-f orens ic testi ng and these resul ts shoul d be used only by healt [facility] provi ders to rende r diagn osis or treat ment, or to monit or progr ess of medic al condi tions . Note A: The resul ts are presu mptiv e; based only on mabel martines, and they have not been confi rmed by a defin itive charlie thurston. [facility] Provi ders needi ng Inter preta tion alejo tance , pleas e conta ct us at [phone] .[phone].[id number] XTOX ([phone] ) M-F, 8am to 10pm EST Not Available [facility] [address] [address] [address] , [place], [address], 07/06/2022 15:35:12 06/30/1907/06/2022 CULTU RE, URINE , ROUTI NE culture, urine, routine SEE NOTE CULTU RE, URINE , ROUTI NE Micro Numbe r: [id number] Test Statu s: Final Speci men [...] Cultu re Trans port Tube. Not Available [address], [address], 07/06/2022 15:35:12 06/30/19 23 07/09/2022 THINP REP TIS PAP (REFL ) HPV MRNA E6/E7 clinical information: normal Pregn ant Not Available [address], [address], 07/09/2022 16:14:26 06/30/19 23 07/09/2022 THINP REP TIS PAP (REFL ) HPV MRNA E6/E7 LMP: normal NA Not Available [address], [address], 07/09/2022 16:14:26 06/30/19 23 07/09/2022 THINP REP TIS PAP (REFL ) HPV MRNA E6/E7 prev. Pap: normal NA Not Available [address], [address], 07/09/2022 16:14:26 06/30/19 23 07/09/2022 THINP REP TIS PAP (REFL ) HPV MRNA E6/E7 prev. BX: normal NA Not Available [address], [address], 07/09/2022 16:14:26 06/30/19 23 07/09/2022 THINP REP TIS PAP (REFL ) HPV MRNA E6/E7 source: normal Cervi x, Endoc ervix Not Available [address] [place], [address], 07/09/2022 16:14:26 06/30/19 23 07/09/2022 THINP REP TIS PAP (REFL ) HPV MRNA E6/E7 statement of adequacy: normal Satis facto ry for evalu ation . Endoc ervic al/tr ansfo rmati on zone compo nent prese nt. Not Available [address] [address] [place], [address], 07/09/2022 16:14:26 06/30/19 23 07/09/2022 THINP REP TIS PAP (REFL ) HPV MRNA E6/E7 general categorizati on: abnormal EPITH ELIAL CELL ABNOR MALIT Y Not Available [address] [address] [place], [address], 07/09/2022 16:14:26 06/30/19 23 07/09/2022 THINP REP TIS PAP (REFL ) HPV MRNA E6/E7 interpretati on/result: abnormal Low Grade Squam ous Intra epith elial Lesio n (LSIL ) Not Available [address] [address] [address], [place], [address], 07/09/2022 16:14:26 06/30/19 23 07/09/2022 THINP REP TIS PAP (REFL ) HPV MRNA E6/E7 comment: normal This Pap test has been evalu ated with compu ter alejo nba techn ology . Sugge st clini em corre latio n and follo w-up as clini jorge appro priat e Not Available [address] [address] [address], [place], [address], 07/09/2022 16:14:26 06/30/19 23 07/09/2022 THINP REP TIS PAP (REFL ) HPV MRNA E6/E7 cytotechnolo gist: normal YQ, CT( CP) CT scree tarik locat ion: [address] [address] [place] [address] Not Available [address] [address] [place], [address], 07/09/2022 16:14:26 06/30/19 23 07/09/2022 THINP REP TIS PAP (REFL ) HPV MRNA E6/E7 pathologist: normal Lizbeth christofer metz M.D., Board Certi fied in Anato blaine Patho logy and Cytop athol ogy. Phone : [phone] (elec troni c signa ture) Not Available [facility] [address] [place], [address], 07/09/2022 16:14:26 06/30/19 23 07/09/2022 THINP REP [...] wagner and curre nt clini em infor matio n. Not Available [address] [address] [place], [address], 07/09/2022 16:14:26 06/30/19 23 07/09/2022 HPV MRNA [...] infor rhoda powers e refer to http: //solo subramanian stdia gnost ics.c om/fa q/FAQ 129v1 (This link if provi ded for infor abilio ebaulieu/ educa nela l purpo ses only. ) Not Available [employer] [address], [address], 07/09/2022 16:14:27 06/30/19 23 07/09/2022 CHLAM YDIA/ N. GONOR RHOEA E RNA, TMA, UROGE NITAL chlamydia trachomatis RNA, tma, urogenital NOT DETECT ED not detect ed normal Not Available [address], [address], 07/09/2022 16:14:27 06/30/19 23 07/09/2022 CHLAM YDIA/ N. GONOR RHOEA E RNA, TMA, UROGE NITAL neisseria gonorrhoeae RNA, tma, urogenital NOT DETECT ED not detect ed normal Not Available [address], [address], 07/09/2022 16:14:27 06/30/19 23 07/09/2022 CHLAM YDIA/ [...] ses. For addit ional infor rhoda powers refer to https ://ed ucati on.qu estdi [employer]. com/f aq/FA Q154 (This link is being provi ded for infor abilio beaulieu/ educa nela l purpo ses only. ) Not Available [employer] [address], [address], 07/09/2022 16:14:27 12/02/19 23 12/04/2022 STREP TOCOC CUS, GROUP B CULTU RE streptococcu s, group B culture SEE NOTE STREP TOCOC CUS, GROUP B CULTU RE Micro Numbe r: [id number] Test Statu s: Final Speci men Sourc e: Vagin al/an orect al Speci men Quali ty: Adequ ate Resul t: No group B Strep tococ cus isola nba Note per CDC guide lines optim al recov mireya is achie eddie by swabb ing both the lower vagin a and rectu m (thro ugh the anal sphin cter) . Not Available [address] [address] [place], [address], 12/04/2022 08:11:57 08/07/19 23 08/05/2022 US, obste tric, 2nd trime ster No observ ation record ed. [facility] [address], [address], 08/13/2022 11:22:22 09/22/19 23 09/20/2022 US, obste tric, follo w-up No observ ation record ed. [facility] [address], [address], 09/21/2022 19:17:06 01/16/20 25 01/07/2025 US, obste tric, 1st trime ster No observ ation record ed. [email or web address] [facility] [address] [place], [address], 01/16/2025 09:23:34 Result Notes None recorded. Problems Name Problem SNOMED Code Status Onset Date Resolution Date Notes Provider Name and Address Organization Details Recorded Time Candidias is of skin 79409956 Active 2022 ANTON [facility]jo [facility], Shari 06/27/202 3 17:09:43 Normal in multig[facility] [place] 208792026945 106 Active 2022 EARL OLVERA RAYMOND [facility], EleanorL.Bishop 3 17:12:40 [facility] 201532817729 106 Completed 2022 EARL OLVERA RAYMOND [facility], Shari 3 17:12:40 77155441 Active 2024 [facility], L.L.CMarcelle 5 11:43:13 Problem Notes None recorded. Procedures Surgical History Date Name Laterality Status Provider Name and Address Organization Details Recorded Time 11/05/2022 Date of Last Pap Smear completed formerly [facility], EleanorLXavier 12/31/2024 11:55:28 Imaging Results None recorded. Procedure [...] two times daily 10/05 completed Recorded 05/21/19 23 6:47PM by Haleigh Guillory, Office Visit; Refill [...] Available Not Available Vitals Date Recorded Body weight Body mass index (BMI) Body height Body temperature Heart rate Oxygen saturation Systolic And Diastolic Provider Name and Address Organization Details Last Updated DateTime 941475. 35 g 46.2 kg/m2 162.56 cm 98 [degF] 105 /min 99 % 118/82 mm[Hg] [facility], L.L.CMarcelle 11:45:25 Date Recorded Body weight Systolic And Diastolic Provider Name and Address Organization Details Last Updated DateTime 01/01/2025 929821.09209 g 118/82 mm[Hg] Sherlyn Cervantes MD [address] [place] [address], [address], [facility], L.L.CMarcelle 01/01/2025 10:55:08 Social History Question Answer Notes LastModified by Organizat ion Details LastModified Time Tobacco Smoking Status Never Smoker EARL RUIZ [facility], [facility], EleanorLXavier 06/29/2022 15:25:26 What Was The Date Of Your Most Recent Tobacco Screening? 01/28/2025 [email or web address] Information not available 01/28/2025 What Is Your [...] Time IPV 2 completed EARL claros [facility], LMarcelleLXavier 09/06/2022 12:43:40 IPV 6 completed TREBA NEUSCHWANDER null, [facility] 09/06/2022 12:43:40 IPV 2 completed TREBA NEUSCHWANDER null, [facility] 09/06/2022 12:43:40 IPV 2 completed TREBA NEUROXANNWANDER null, [facility] 09/06/2022 12:43:40 MMR 3 completed TREBA NEUSCHWANDER null, [facility] 09/06/2022 12:43:40 MMR 6 completed TREBA NEUROXANNWANDER null, [facility] 09/06/2022 12:43:40 pneumococcal conjugate PCV 7 2 completed [facility]ILY[facility] 09/06/2022 12:43:40 pneumococcal conjugate PCV 7 2 completed AILYNBA NEUROXANNWANDER null, [facility] 09/06/2022 12:43:40 pneumococcal conjugate PCV 7 2 completed AILYNBA NEUROXANNWANDER null, [facility] 09/06/2022 12:43:40 pneumococcal polysaccharide PPV23 3 completed AILYNBA PRAFULWAANGIEER null, [facility] 09/06/2022 12:43:40 Tdap 6 completed AILYNBA NEUROXANNWAANGIEER null, [facility] 09/06/2022 12:43:40 varicella 3 completed AILY[facility]BA [facility] 09/06/2022 12:43:40 Hep B, unspecified formulation 2 completed AILYNBA NEUROXANNWANDER null, [facility] 09/06/2022 12:43:40 [...] 09/06/2022 12:43:40 DTaP 2 completed TREBA NEUSCHWANDER hyacinth [facility], Shari 09/06/2022 12:43:40 DTaP 2 completed EARL RUIZ hyacinth, [facility], Shari 09/06/2022 12:43:40 Past Encounters Encounter ID Performer Location Encounter Start Date Encounter Closed Date Diagnosis/Indication Diagnosis SNOMED-CT Code Diagnosis ICD10 Code Diagnosis IMO Codes Diagnosis Note [id number] Sherlyn Cervantes MD [facility] ([facility]) [address] [place] [address] 12/31/2024 11:33:10 12/31/2024 13:02:50 87748745 Z34.90 - Confirm dating with a follow-up ultrasound - Regular visits scheduled every four weeks - Perform routine labs and optional genetic screening after 10 weeks History of hypertension 414252059 Z86.79 - Monitor and manage blood pressure with frequent checks - Discussed maintainin g a home blood pressure monitor for early detection Gastroesop hageal reflux disease 775403435 K21.9 - Discuss medication s like Pepcid for safe use - Encourage dietary changes to manage symptoms before medication use History of calculus of kidney 553524268 Z87.442 - Inform about symptoms and seek care if they arise Health Concerns Section Related Observation LastModified by Organization Detai ls LastModified Time None Recorded Concern Status LastModified by Organization Details LastModified Time None Recorded Payers Encounter Date Sequence Insurance Name Policy Number Policy Torres Covered Member ID Torres Member ID Guarantor Name 12/31/[address] (MEDICAID REPLACEMENT - HMO) [id number] Diana Gongora [id number] Diana Gongora Notes Date Note Type Note Provider Name and Address Organization Details Recorded Time 12/31/2024 text/html jr ob routineRep orted by PatientHPIFor associated symptoms, patient reportsno abdominal [...] despite past complications. - Ultrasound from [facility]: Estimated due date: August 19, 2025 Sherlyn Cervantes MD [address] [place] [address], [phone], [facility] 01/01/2025 10:56:40 OBGyn Episode Ob Episode Information Episode Created Date Number of Fetuses Patient Bloodtype Patient rh Status Prepregnancy Weight lbs Domestic Partner Domestic Partner Phone Father Name Portable Sawyer Status 01/01/20 25 1 B Positive Arpan Flynn OPEN Fetus Data First Name Last Name Admitted to NICU Weight (g) Sex Living Outcome Pediatric Complications Fetus ID Race Codes Race Delivery Type [id number] Abe Calculation Initial Abe Date Initial Exam [...] Type Weight in lbs Pre/Post Dialysis Refused 269.812804127386 BP Diastolic BP Location Tested BP Systolic [...] Weight in lbs Pre/Post Dialysis Refused Weight 274.722467928640 BP Diastolic BP Location Tested BP Systolic BP Type 90 124 Fetus Heart Rate Present Fetus Movement Comments Menstrual History Last Menstrual Date Menses Monthly On Bcp Conception Prior Menses Frequency Hcg Plus Date Menarche Onset Age true Genetic Screening And Infection History Question Response Note Patient's Age Will Be 35 Years Or Older At Estim ated Date of Delivery false Thalassemia (Costa Rican, Ugandan, Mediterranean, Or Background): MCV < 80 false Neural Tube Defect (Meningomyelocele, Spina Bifi da, Or Anencephaly) false Congenital Heart Defect false Down Syndrome false Dominic-Sachs (eg, Orthodoxy, Cajun, Dominican-[address]) f alse Jay Disease false Sickle Cell Disease Or Trait () false Hemophilia Or Other Blood Disorders false Muscular Dystrophy false Cystic Fibrosis false [place]'s Chorea false Intellectual Disability/Autism false If Yes, [...] Domestic Partner Domestic Partner Phone Father Name Portable Sawyer Status 06/30/19 23 1 B Positive Arpan Flynn CLOSED Fetus Data First Name Last Name Admitted to NICU Weight (g) Sex Living Outcome Pediatric Complications Fetus ID Race Codes Race Delivery Type 648 Problems Problem Notes Follow up ultrasound for out flow tracks. Problem Name Start Date End Date Resolution Snomed Code Not e Normal in multigravida 09/21/2022 727257837477468 Abe Calculation Initial Abe Date Initial Exam [...] Weight in lbs Pre/Post Dialysis Refused Weight 241.287577817507 BP Diastolic BP Location Tested BP Systolic [...] ation, placenta posterior, grade 0, normal AFV, [id number]-726JOY-26/23/23, EGA-19.3, RVOT and LVOT not seen, anatomic [...] Weight in lbs Pre/Post Dialysis Refused Weight 249.074991221506 BP Diastolic BP Location Tested BP Systolic [...] Weight in lbs Pre/Post Dialysis Refused Weight 258.355423076459 BP Diastolic BP Location Tested BP Systolic [...] Weight in lbs Pre/Post Dialysis Refused Weight 260.207339853657 BP Diastolic BP Location Tested BP Systolic [...] Weight in lbs Pre/Post Dialysis Refused Weight 268.404783315423 BP Diastolic BP Location Tested BP Systolic [...] Weight in lbs Pre/Post Dialysis Refused Weight 268.485037898501 BP Diastolic BP Location Tested BP Systolic [...] Weight in lbs Pre/Post Dialysis Refused Weight 272.811945413642 BP Diastolic BP Location Tested BP Systolic [...] Weight in lbs Pre/Post Dialysis Refused Weight 276.868119121576 BP Diastolic BP Location Tested BP Systolic [...] Weight in lbs Pre/Post Dialysis Refused Weight 279.422290838013 BP Diastolic BP Location Tested BP Systolic [...] Weight in lbs Pre/Post Dialysis Refused Weight 282.143332529700 BP Diastolic BP Location Tested BP Systolic [...] Weight in lbs Pre/Post Dialysis Refused Weight 284.376049708535 BP Diastolic BP Location Tested BP Systolic [...] Weight in lbs Pre/Post Dialysis Refused Weight 269.763250673656 BP Diastolic BP Location Tested BP Systolic BP Type 82 118 Fetus Heart Rate Present Fetus Movement Comments Menstrual History Last Menstrual Date Menses Monthly On Bcp Conception Prior Menses Frequency Hcg Plus Date Menarche Onset Age Genetic Screening And Infection History Question Response Note Patient's Age Will Be 35 Yea rs Or Older At Estimated Date of Delivery false Thalassemia (Costa Rican, Ugandan, Mediterranean, Or Background): MCV < 80 false Neural Tube Defect (Meningom yelocele, Spina Bifida, Or Anencephaly) false Congenital Heart Defect false Down Syndrome false Dominic-Sachs (eg, Orthodoxy, Cajun, Dominican-[address]) f alse Jay Disease false Sickle Cell Disease Or Trait () false Hemophilia Or Other Blood Disorders false Muscular Dystrophy false Cystic Fibrosis false [place]'s Chorea false Intellectual Disability/Autism false If Yes, [...]
--- OUTSIDE RECORDS SUMMARY | 2025-02-25 01:12 | XMS_ITS | Patient Health Record ---
Author Organization [facility] Address [address] [place] [address] Care Team Providers Care Veterinary Technology Instructor Name Role Phone Ling Dukes NP Unavailable Unavailable Reason For Referral No Information Problems Problem Type SNOMED Code ICD Code Onset Dates Problem Status W/U Status Risk Notes Problem Injury of right lower leg (58131940138 889377) INJURY OF LOWER EXTREMITY, RIGHT, INITIAL ENCOUNTER (S89.91XA) Inactive confirmed Plan Of Treatment No Information Insurance Providers Payer Name Payer Address Payer Phone Subscriber Number Group Number Insured Name Patient Relationship to Insured Coverage Start Date Coverage End Date HOME STATE [employer] [address] [place] [phone] [id number] CALVIN WILDE Self - patient is the insured
--- OUTSIDE RECORDS SUMMARY | 2025-02-25 01:12 | XMS_ITS | Continuity of Care Document ---
Author Organization ANOTN Ovidio Mclain [facility], LMarcelleLXavier, [facility] ([facility]) Address [address] [place] [address] Care Team Providers Care Trim Sawyer Name Role Phone SHERLYN CERVANTES Primary Care Provider [phone] Assessment No assessment recorded. Plan of Treatment [...] US, obstetr ic, 1st trimest er - [id number] [facility], [address], [place], [address], 01/07/2025 16:24:42 Medication Orders None recorde d. Patient TargetsNo targets recorded. Patient InstructionsNo instructions recorded. Reason for Referral None Reported. Results Created Date Observation Date Name Description Value Unit Range Abnormal Flag Note LastModifiedBy Organization Detail LastModifiedTime 10/16/1910/15/2022 CBC WBC 13.1 x10 4.0-10 .5 high Not Available [facility] [address] [facility], [place], [address], 10/15/2022 14:45:23 10/16/19 23 10/15/2022 CBC RBC 4.70 x10 3.50-5 .50 Not Available [facility] [address] [facility], [place], [address], 10/15/2022 14:45:23 10/16/19 23 10/15/2022 CBC HGB 12.1 g/dL 12.0-1 6.0 Not Available [facility] [address] [facility], [place], [address], 10/15/2022 14:45:23 10/16/19 23 10/15/2022 CBC HCT 36.7 % 37.0-4 7.0 low Not Available [facility] [address] [facility], [place], [address], 10/15/2022 14:45:23 10/16/19 23 10/15/2022 CBC MCV 78.0 fL 80.0-9 9.9 low Not Available [facility] [address] [facility] 1, [place], [address], 10/15/2022 14:45:23 10/16/19 23 10/15/2022 CBC MCH 25.7 pg 27.0-3 2.0 low Not Available [facility] [address] [facility], [place], [address], 10/15/2022 14:45:23 10/16/19 23 10/15/2022 CBC MCHC 33.0 g/dL 32.0-3 6.0 Not Available [facility] [address] [facility], [place], [address], 10/15/2022 14:45:23 10/16/19 23 10/15/2022 CBC RDW 16.1 % 11.5-1 4.6 high Not Available [facility] [address] [facility], [place], [address], 10/15/2022 14:45:23 10/16/19 23 10/15/2022 CBC plt 252.0 x10 140.0- 451.0 Not Available [facility] [address] [facility], [place], [address], 10/15/2022 14:45:23 10/16/19 23 10/15/2022 CBC lymphocytes % 15.1 % 20.0-5 0.0 low Not Available [facility] [address] [facility] 1, [place], [address], 10/15/2022 14:45:23 10/16/19 23 10/15/2022 CBC granulcytes % 79.6 % 30.0-7 0.0 high Not Available [facility] [address] [facility] 1, [place], [address], 10/15/2022 14:45:23 10/16/19 23 10/15/2022 CBC monocytes % 3.9 % 2.0-10 .0 Not Available [facility] [address] [facility] 1, [place], [address], 10/15/2022 14:45:23 10/16/19 23 10/15/2022 CBC granulcytes# 10.4 x10 Not Elizabeth ilable [facility] [address] [facility] 1, [place], [address], 10/15/2022 14:45:23 10/16/19 23 10/15/2022 CBC lymphocytes # 2.0 x10 Not Available [facility] [address] [facility] 1, [place], [address], 10/15/2022 14:45:23 10/16/19 23 10/15/2022 CBC monocytes # 0.5 x10 Not Avai lable [facility] [address] [facility] 1, [place], [address], 10/15/2022 14:45:23 10/16/19 23 10/15/2022 GLUCO SE SCREE N glucose screen 119.0 mg/dL panic high Not Available [facility] [address] [facility], [place], [address], 10/15/2022 16:13:44 06/30/19 23 07/06/2022 URINA LYSIS , COMPL ETE color YELLOW yellow normal Not Available [facility] [address] [place], [address], 07/06/2022 15:35:05 06/30/19 23 07/06/2022 URINA LYSIS , COMPL ETE appearance CLOUDY clear abnormal Not Available [facility] [address] [place], [address], 07/06/2022 15:35:05 06/30/19 23 07/06/2022 URINA LYSIS , COMPL ETE specific gravity 1.020 1.001- 1.035 normal Not Available [address], [address], 07/06/2022 15:35:05 06/30/19 23 07/06/2022 URINA LYSIS , COMPL ETE pH 7.5 5.0-8. 0 normal Not Available [address], [address], 07/06/2022 15:35:05 06/30/19 23 07/06/2022 URINA LYSIS , COMPL ETE glucose NEGATI VE negati ve normal Not Available [facility] [address], [address], 07/06/2022 15:35:05 06/30/19 23 07/06/2022 URINA LYSIS , COMPL ETE bilirubin NEGATI VE negati ve normal Not Available [facility] [address], [address], 07/06/2022 15:35:05 06/30/19 23 07/06/2022 URINA LYSIS , COMPL ETE ketones NEGATI VE negati ve normal Not Available [facility] [address], [address], 07/06/2022 15:35:05 06/30/19 23 07/06/2022 URINA LYSIS , COMPL ETE occult blood NEGATI VE negati ve normal Not Available [facility] [address], [address], 07/06/2022 15:35:05 06/30/19 23 07/06/2022 URINA LYSIS , COMPL ETE protein NEGATI VE negati ve normal Not Available [facility] [address], [address], 07/06/2022 15:35:05 06/30/19 23 07/06/2022 URINA LYSIS , COMPL ETE nitrite NEGATI VE negati ve normal Not Available [address], [address], 07/06/2022 15:35:05 06/30/19 23 07/06/2022 URINA LYSIS , COMPL ETE leukocyte esterase NEGATI VE negati ve normal Not Available [address], [address], 07/06/2022 15:35:05 06/30/19 23 07/06/2022 URINA LYSIS , COMPL ETE WBC NONE SEEN /hpf < or = 5 normal Not Available [address], [address], 07/06/2022 15:35:05 06/30/19 23 07/06/2022 URINA LYSIS , COMPL ETE RBC NONE SEEN /hpf < or = 2 normal Not Available [address], [address], 07/06/2022 15:35:05 06/30/19 23 07/06/2022 URINA LYSIS , COMPL ETE squamous epithelial cells 0-5 /hpf < or = 5 Not Available [address], [address], 07/06/2022 15:35:05 06/30/19 23 07/06/2022 URINA LYSIS , COMPL ETE bacteria FEW /hpf none seen abnormal Not Available [address], [address], 07/06/2022 15:35:05 06/30/19 23 07/06/2022 URINA LYSIS , COMPL ETE hyaline cast NONE SEEN /lpf none seen normal Not Available [address], [address], 07/06/2022 15:35:05 06/30/19 23 07/06/2022 CBC (INCL UDES DIFF/ PLT) white blood cell count 9.0 thous and/u L 3.8-10 .8 normal Not Available [address], [address], 07/06/2022 15:35:06 06/30/19 23 07/06/2022 CBC (INCL UDES DIFF/ PLT) red blood cell count 5.49 yariel on/uL 3.80-5 .10 high Not Available [address], [address], 07/06/2022 15:35:06 06/30/19 23 07/06/2022 CBC (INCL UDES DIFF/ PLT) hemoglobin 12.9 g/dL 11.7-1 5.5 normal Not Available [facility] [address], [address], 07/06/2022 15:35:06 06/30/19 23 07/06/2022 CBC (INCL UDES DIFF/ PLT) hematocrit 41.3 % 35.0-4 5.0 normal Not Available [address], [address], 07/06/2022 15:35:06 06/30/19 23 07/06/2022 CBC (INCL UDES DIFF/ PLT) MCV 75.2 fL 80.0-1 00.0 low Not Available [address], [address], 07/06/2022 15:35:06 06/30/19 23 07/06/2022 CBC (INCL UDES DIFF/ PLT) MCH 23.5 pg 27.0-3 3.0 low Not Available [facility] [address], [address], 07/06/2022 15:35:06 06/30/19 23 07/06/2022 CBC (INCL UDES DIFF/ PLT) MCHC 31.2 g/dL 32.0-3 6.0 low Not Available [address], [address], 07/06/2022 15:35:06 06/30/19 23 07/06/2022 CBC (INCL UDES DIFF/ PLT) RDW 14.9 % 11.0-1 5.0 normal Not Available [address], [address], 07/06/2022 15:35:06 06/30/19 23 07/06/2022 CBC (INCL UDES DIFF/ PLT) platelet count 217 thous and/u L 140-40 0 normal Not Available [address], [address], 07/06/2022 15:35:06 06/30/19 23 07/06/2022 CBC (INCL UDES DIFF/ PLT) MPV 11.8 fL 7.5-12 .5 normal Not Available [address], [address], 07/06/2022 15:35:06 06/30/19 23 07/06/2022 CBC (INCL UDES DIFF/ PLT) absolute neutrophils 6696 cells /uL 1500-7 800 normal Not Available [address], [address], 07/06/2022 15:35:06 06/30/19 23 07/06/2022 CBC (INCL UDES DIFF/ PLT) absolute lymphocytes 1764 cells /uL 850-39 00 normal Not Available [facility] [address], [address], 07/06/2022 15:35:06 06/30/19 23 07/06/2022 CBC (INCL UDES DIFF/ PLT) absolute monocytes 450 cells /uL 200-95 0 normal Not Available [facility] [address], [address], 07/06/2022 15:35:06 06/30/19 23 07/06/2022 CBC (INCL UDES DIFF/ PLT) absolute eosinophils 63 cells /uL 15-500 normal Not Available [facility] [address], [address], 07/06/2022 15:35:06 06/30/19 23 07/06/2022 CBC (INCL UDES DIFF/ PLT) absolute basophils 27 cells /uL 0-200 normal Not Available [facility] [address], [address], 07/06/2022 15:35:06 06/30/19 23 07/06/2022 CBC (INCL UDES DIFF/ PLT) neutrophils 74.4 % normal Not Available [facility] [address], [address], 07/06/2022 15:35:06 06/30/19 23 07/06/2022 CBC (INCL UDES DIFF/ PLT) lymphocytes 19.6 % normal Not Available [facility] [address], [address], 07/06/2022 15:35:06 06/30/19 23 07/06/2022 CBC (INCL UDES DIFF/ PLT) monocytes 5.0 % normal Not Available [facility] [address], [address], 07/06/2022 15:35:06 06/30/19 23 07/06/2022 CBC (INCL UDES DIFF/ PLT) eosinophils 0.7 % normal Not Available [facility] [address], [address], 07/06/2022 15:35:06 06/30/19 23 07/06/2022 CBC (INCL UDES DIFF/ PLT) basophils 0.3 % normal Not Available [facility] [address], [address], 07/06/2022 15:35:06 06/30/19 23 07/06/2022 HEPAT ITIS B SURFA CE ANTIG EN W/REF L CONFI RM hepatitis B surface antigen NON-RE ACTIVE non-re active normal Not Available [facility] [address], [address], 07/06/2022 15:35:06 06/30/19 23 07/06/2022 HEPAT ITIS C AB W/REF L TO HCV RNA, QN, PCR hepatitis C antibody NON-RE ACTIVE non-re active normal Not Available [facility] - [address] [place], [address], 07/06/2022 15:35:07 06/30/19 23 07/06/2022 HEPAT ITIS [...] a test for HCV RNA (test code 41648 ) is sugpetey peraltad. For addit ional infor abilio duong e refer to http: //[facility] rajendra palomoque stdia gnost ics.c om/fa q/FAQ 22v1 (This link is being provi ded for infor abilio bailey/ educa nela l purpo ses only. ) Not Available [address] [facility] [facility] [place], [address], 07/06/2022 15:35:07 06/30/1907/06/2022 RUBEL LA AB (IGG) [...] with rubel la virus . Not Available [facility] [address] [place], [place] [address], [address], 07/06/2022 15:35:08 06/30/19 23 07/06/2022 HIV 1/2 ANTIG EN/AN TIBOD Y,FOU RTH [...] n pleas e refer to http: //[facility] rajendra n.que stdia gnost ics.c om/fa q/FAQ 106 (This link is being provi ded for infor matio nal/ educa nela l purpo ses only. ) The perfo rmanc e of this assay has not been clini jorge valid ated in patie nts less than 2 years old. Not Available [facility] [address] [place], [address], 07/06/2022 15:35:08 06/30/19 23 07/06/2022 QNATA L(R) ADVAN LACHO number of fetuses? 1 Not Available [facility] [address] [place], [address], 07/06/2022 15:35:09 06/30/19 23 07/06/2022 QNATA L(R) ADVAN LACHO advanced maternal age? NO Not Available [address], [address], 07/06/2022 15:35:09 06/30/19 23 07/06/2022 QNATA L(R) ADVAN LACHO abnormal scott? NO Not Available [facility] [address], [address], 07/06/2022 15:35:09 06/30/19 23 07/06/2022 QNATA L(R) ADVAN LACHO abnormal US? NO Not Available [address], [address], 07/06/2022 15:35:09 06/30/19 23 07/06/2022 QNATA L(R) ADVAN LACHO personal/fam history? NO Not Available [address], [address], 07/06/2022 15:35:09 06/30/19 23 07/06/2022 QNATA L(R) ADVAN LACHO interpretati on SEE NOTE This speci men showe d an expec nba repre senta tion of chrom osome 21, 18, and 13 mater ial. See Maria T chicas below . Not Available [address], [address], 07/06/2022 15:35:09 06/30/19 23 07/06/2022 QNATA L(R) ADVAN LACHO trisomy 21 (T21) Negati ve Not Available [address], [address], 07/06/2022 15:35:09 06/30/19 23 07/06/2022 QNATA L(R) ADVAN LACHO trisomy 18 (T18) Negati ve Not Available [facility] [address] [address] [place], [address], 07/06/2022 15:35:09 06/30/19 23 07/06/2022 QNATA L(R) ADVAN LACHO trisomy 13 (T13) Negati ve Not Available [facility] [address] [address] [place], [address], 07/06/2022 15:35:09 06/30/19 23 07/06/2022 QNATA L(R) ADVAN LACHO Y chromosome Detect ed Not Available [address] [address] [place], [address], 07/06/2022 15:35:09 06/30/19 23 07/06/2022 QNATA L(R) ADVAN LACHO Y chr. interpretati on SEE NOTE Consi stent with a male fetus . Not Available [address] [address] [place], [address], 07/06/2022 15:35:09 06/30/19 23 07/06/2022 QNATA L(R) ADVAN LACHO sex chromosome No aneupl oidy Not Available [address] [address] [place], [address], 07/06/2022 15:35:09 06/30/19 23 07/06/2022 QNATA L(R) ADVAN LACHO sex chromosome interp SEE NOTE No appar ent abnor malit y was detec nba. See Limi tatio ns below . Not Available [address] [address] [place], [address], 07/06/2022 15:35:09 06/30/19 23 07/06/2022 QNATA L(R) ADVAN LACHO microdeletio n Not detect ed Not Available [address] [address] [place], [address], 07/06/2022 15:35:09 04/25/20 23 07/06/2022 QNATA L(R) ADVAN LACHO microdeletio n interp SEE NOTE No appar ent abnor malit y was detec nba. See Maria T banegas ns below . Not Available [address] [address] [place], [address], 07/06/2022 15:35:09 06/30/19 23 07/06/2022 QNATA L(R) ADVAN LACHO gestational age(in weeks) 13 Not Available [address] [address] [place], [address], 07/06/2022 15:35:09 06/30/19 23 07/06/2022 QNATA L(R) ADVAN LACHO gestational age (in days) 6 Not Available [address] [place], [address], 07/06/2022 15:35:09 06/30/19 23 07/06/2022 QNATA L(R) ADVAN LACHO fraction 12.90% Not Available [address] [place], [address], 07/06/2022 15:35:09 06/30/19 23 07/06/2022 QNATA L(R) ADVAN LACHO laboratory comments SEE NOTE Labor atory resul ts and submi tted clini em infor matio n revie wed by Esdras vann, Ph.D. , FACMG , CGMBS . Not Available [address] [place], [address], 07/06/2022 15:35:09 06/30/19 23 07/06/2022 QNATA L(R) [...] unexp merary d cause s. Not Available [facility] [address] [place], [address], 07/06/2022 15:35:09 06/30/19 23 07/06/2022 QNATA L(R) [...] marii tical asses sment . Not Available [facility] [address] [place], [address], 07/06/2022 15:35:09 06/30/19 23 07/06/2022 QNATA L(R) [...] ome (5p), Manzo r-Gie john syndr ome (8p), Arpan sen syndr [...] Diagn ostic s [facility], [place] [employer] . It has not been [...] Diagn ostic s [facility] [place] [employer] . It has not been clear ed or appro eddie by FDA. This assay has been valid ated pursu ant to the CLIA regul ation s and is used for clini em purpo ses. Not Available [facility] [address] [place], [address], 07/06/2022 15:35:09 06/30/19 23 07/06/2022 RPR (DX) W/REF L TITER AND CONFI RMATO RY TESTI NG RPR (DX) w/refl titer and confirmatory testing NON-RE ACTIVE non-re active normal Not Available [address], [address], 07/06/2022 15:35:09 06/30/1907/06/2022 ANTIB BEREKET SCREE N, [...] alloi mmuni zed pregn roula. Not Available [facility] [address] [address] [place], [address], 07/06/2022 15:35:10 06/30/19 23 07/06/2022 ABO GROUP AND RH TYPE ABO group B Not Available [facility] [address] [address] [place], [address], 07/06/2022 15:35:10 06/30/1907/06/2022 ABO GROUP AND RH TYPE Rh type RH(D) POSITI VE For addit ional infor rhoda powers e refer to http: //[facility] rajendra Hoyos stDia gnost ics.c om/fa q/FAQ 111 (This link is being provi ded for infor abilio bailey/ educa nela l purpo ses only. ) Not Available [facility] [address] [address] [place], [address], 07/06/2022 15:35:10 06/30/1907/06/2022 DRUG MONIT OR, PANEL 1, SCREE N, URINE amphetamines NEGATI VE NG/mL <500 See Note A See Note A Not Available [facility] [address] [address] [place], [address], 07/06/2022 15:35:11 06/30/19 23 07/06/2022 DRUG MONIT OR, PANEL 1, SCREE N, URINE barbiturates NEGATI VE NG/mL <300 See Note A See Note A Not Available [facility] [address] [address] [address], [place], [address], 07/06/2022 15:35:11 06/30/19 23 07/06/2022 DRUG MONIT OR, PANEL 1, SCREE N, URINE benzodiazepi lakeisha NEGATI VE NG/mL <100 See Note A See Note A Not Available [facility] [address] [address] [address], [place], [address], 07/06/2022 15:35:11 06/30/1907/06/2022 DRUG MONIT OR, PANEL 1, SCREE N, URINE cocaine metabolite NEGATI VE NG/mL <150 See Note A See Note A Not Available [facility] [address] [address] [address], [place], [address], 07/06/2022 15:35:11 06/30/1907/06/2022 DRUG MONIT OR, PANEL 1, SCREE N, URINE marijuana metabolite NEGATI VE NG/mL <20 See Note A See Note A Not Available [facility] [address] [address] [address], [place], [address], 07/06/2022 15:35:11 06/30/1907/06/2022 DRUG MONIT OR, PANEL 1, SCREE N, URINE methadone metabolite NEGATI VE NG/mL <100 See Note A See Note A Not Available [facility] [address] [address] [address], [place], [address], 07/06/2022 15:35:11 06/30/1907/06/2022 DRUG MONIT OR, PANEL 1, SCREE N, URINE opiates NEGATI VE NG/mL <100 See Note A See Note A Not Available [facility] [address] [address] [address], [place], [address], 07/06/2022 15:35:11 06/30/19 23 07/06/2022 DRUG MONIT OR, PANEL 1, SCREE N, URINE oxycodone NEGATI VE NG/mL <100 See Note A See Note A Not Available [address] [address] [address], [place], [address], 07/06/2022 15:35:11 06/30/19 23 07/06/2022 DRUG MONIT OR, PANEL 1, SCREE N, URINE phencyclidin e NEGATI VE NG/mL <25 See Note A See Note A Not Available [address] [address] [address], [place], [address], 07/06/2022 15:35:11 06/30/19 23 07/06/2022 DRUG MONIT OR, PANEL 1, SCREE N, URINE creatinine 132.5 mg/dL > or = 20.0 Not Available [address] [address] [address] , [place], [address], 07/06/2022 15:35:11 06/30/19 23 07/06/2022 DRUG MONIT OR, PANEL 1, SCREE N, URINE pH 7.9 4.5-9. 0 Not Available [address] [address] [address] , [place], [address], 07/06/2022 15:35:11 06/30/19 23 07/06/2022 DRUG MONIT OR, PANEL 1, SCREE N, URINE oxidant NEGATI VE mcg/m L <200 Not Available [address] [address] [address] , [place], [address], 07/06/2022 15:35:11 06/30/19 23 07/06/2022 DRUG MONIT [...] confi rmed by a defin itive charlie Taverast [facility]care Provi ders needi ng Inter preta tion alejo tance , pleas e conta ct us at 1.877 .40.R XTOX (1.87 7.407 .9869 ) M-F, 8am to 10pm EST Not Available [address], [address], 07/06/2022 15:35:12 06/30/19 23 07/06/2022 CULTU RE, URINE , ROUTI NE culture, urine, routine SEE NOTE CULTU RE, URINE , ROUTI NE Micro Numbe r: [id number] Test Statu s: Final Speci men [...] Cultu re Trans port Tube. Not Available [address] [address] [place], [address], 07/06/2022 15:35:12 06/30/19 23 07/09/2022 THINP REP TIS PAP (REFL ) HPV MRNA E6/E7 clinical information: normal Pregn ant Not Available [facility] [address] [address] [place], [address], 07/09/2022 16:14:26 06/30/19 23 07/09/2022 THINP REP TIS PAP (REFL ) HPV MRNA E6/E7 LMP: normal NA Not Available [facility] [address] [address] [place], [address], 07/09/2022 16:14:26 06/30/19 23 07/09/2022 THINP REP TIS PAP (REFL ) HPV MRNA E6/E7 prev. Pap: normal NA Not Available [address], [address], 07/09/2022 16:14:26 06/30/19 23 07/09/2022 THINP REP TIS PAP (REFL ) HPV MRNA E6/E7 prev. BX: normal NA Not Available [address], [address], 07/09/2022 16:14:26 06/30/19 23 07/09/2022 THINP REP TIS PAP (REFL ) HPV MRNA E6/E7 source: normal Cervi x, Endoc ervix Not Available [address], [address], 07/09/2022 16:14:26 06/30/19 23 07/09/2022 THINP REP TIS PAP (REFL ) HPV MRNA E6/E7 statement of adequacy: normal Satis facto ry for evalu ation . Endoc ervic al/tr ansfo rmati on zone compo nent prese nt. Not Available [address], [address], 07/09/2022 16:14:26 06/30/19 23 07/09/2022 THINP REP TIS PAP (REFL ) HPV MRNA E6/E7 general categorizati on: abnormal EPITH ELIAL CELL ABNOR MALIT Y Not Available [address] [place], [address], 07/09/2022 16:14:26 06/30/19 23 07/09/2022 THINP REP TIS PAP (REFL ) HPV MRNA E6/E7 interpretati on/result: abnormal Low Grade Squam ous Intra epith elial Lesio n (LSIL ) Not Available [address], [address], 07/09/2022 16:14:26 06/30/19 23 07/09/2022 THINP REP TIS PAP (REFL ) HPV MRNA E6/E7 comment: normal This Pap test has been evalu ated with compu vyas techn ology . Sugge st clini em corre latio n and follo w-up as clini jorge appro priat e Not Available [address] [address] [place], [address], 07/09/2022 16:14:26 06/30/19 23 07/09/2022 THINP REP TIS PAP (REFL ) HPV MRNA E6/E7 cytotechnolo gist: normal YQ, CT( CP) CT scree tarik locat ion: [address] [address] [place] [address] Not Available [address] [address] [address], [place], [address], 07/09/2022 16:14:26 06/30/19 23 07/09/2022 THINP REP TIS PAP (REFL ) HPV MRNA E6/E7 pathologist: normal Lizbeth metz M.D., Board Certi fied in [place] Patho logy and Cytop athol ogy. Phone : [phone] (elec troni c signa ture) Not Available [address] [address] [address], [place], [address], 07/09/2022 16:14:26 06/30/19 23 07/09/2022 THINP REP [...] clini em infor matio n. Not Available [address], [address], 07/09/2022 16:14:26 06/30/1907/09/2022 HPV MRNA E6/E7 HPV MRNA E6/E7 Not [...] rhoda powers e refer to http: //[facility] rajendra beaulieu.mylene stdia gnost ics.c om/fa q/FAQ 129v1 (This link if provi ded for infor abilio beaulieu/ educkatlin metz purpo ses only. ) Not Available [address], [address], 07/09/2022 16:14:27 06/30/19 23 07/09/2022 CHLAM YDIA/ N. GONOR RHOEA E RNA, TMA, UROGE NITAL chlamydia trachomatis RNA, tma, urogenital NOT DETECT ED not detect ed normal Not Available [address] [place], [address], 07/09/2022 16:14:27 06/30/19 23 07/09/2022 CHLAM YDIA/ N. GONOR RHOEA E RNA, TMA, UROGE NITAL neisseria gonorrhoeae RNA, tma, urogenital NOT DETECT ED not detect ed normal Not Available [facility] [address] [place], [address], 07/09/2022 16:14:27 06/30/1907/09/2022 CHLAM YDIA/ N. GONOR RHOEA E RNA, [...] e refer to https ://ed ucati on.qu estPaloma Pharmaceuticals. com/f aq/FA Q154 (This link is being provi ded for infor abilio beaulieu/ educkatlin bravonela l purpo ses only. ) Not Available [facility] [address] [place], [address], 07/09/2022 16:14:27 12/02/19 23 12/04/2022 STREP TOCOC CUS, GROUP B CULTU RE streptococcu s, group B culture SEE NOTE STREP TOCOC CUS, GROUP B CULTU RE Micro Numbe r: [id number] Test Statu s: Final Speci men Sourc e: Vagin al/an orect al Speci men Quali ty: Adequ ate Resul t: No group B Strep tococ cus isola nba Note per CDC guide lines optim al recov mireya is achie eddie by swabb ing both the lower vagin a and rectu m (thro ugh the anal sphin cter) . Not Available [facility] [address], [place], [address], 12/04/2022 08:11:57 08/07/1908/05/2022 US, obste tric, 2nd trime ster No observ ation record ed. alysaschvasu [facility] [facility] [address], [place], [address], 08/13/2022 11:22:22 09/22/19 23 09/20/2022 US, obste tric, follo w-up No observ ation record ed. [email or web address] [facility] [address], [place], [address], 09/21/2022 19:17:06 01/16/20 25 01/07/2025 US, obste tric, 1st trime ster No observ ation record ed. [email or web address] [facility] [address] [facility] [address], [place], [address], 01/16/2025 09:23:34 Result Notes None recorded. Problems Name Problem SNOMED Code Status Onset Date Resolution Date Notes Provider Name and Address Organization Details Recorded Time Candidias is of skin 37044972 Active 2022 MANJEET FRITZ [facility] 3 17:09:43 Normal in [facility] 910326923016 106 Active 2022 EARL ANDRADE [facility] 3 17:12:40 Normal in [facility] 858129912588 106 Completed 2022 EARL ANDRADE [facility] 3 17:12:40 69303390 Active 2024 [facility] 5 11:43:13 Problem Notes None recorded. Procedures Surgical History Date Name Laterality Status Provider Name and Address Organization Details Recorded Time 11/05/2022 Date of Last Pap Smear completed [facility] 12/31/2024 11:55:28 Imaging Results None recorded. Procedure Notes None recorded. Medical Equipment None Reported. Allergies No known drug allergies Medications Name Sig Start Date Stop Date Status Note LastModified by Organization Details LastModified Time amoxicill in 500 mg capsule take 1 capsule BY MOUTH THREE TIMES DAILY 10/24 /2025 completed Not Available Not Available Not Available [...] Not Available Not Available Not Available Vitals None Recorded Social History Question Answer Notes LastModified by Organizat ion Details LastModified Time Tobacco Smoking Status Never Smoker EARL claros [facility] 06/29/2022 15:25:26 What Was The Date Of Your Most Recent Tobacco Screening? 01/28/2025 [email or web address] Information not available 01/28/2025 What Is Your [...] Time IPV 2 completed TREBA NEUSCHWANDER null, [facility] 09/06/2022 12:43:40 IPV 6 completed TREBA NEUSCHWANDER null, [facility] 09/06/2022 12:43:40 IPV 2 completed TREBA NEUSCHWANDER null, [facility] 09/06/2022 12:43:40 IPV 2 completed TREBA NEUSCHWANDER null, [facility] 09/06/2022 12:43:40 MMR 3 completed TREBA NEUSCHWANDER null, [facility] 09/06/2022 12:43:40 MMR 6 completed TREBA NEUSCHWANDER null, [facility] 09/06/2022 12:43:40 pneumococcal conjugate PCV 7 2 completed AILYNBA NEUSCHWANDER null, [facility] 09/06/2022 12:43:40 pneumococcal conjugate PCV 7 2 completed TREBA NEUSCHWANDER null, [facility] 09/06/2022 12:43:40 pneumococcal conjugate PCV 7 2 completed AILYNBA NEUSCHWANDER null, [facility] 09/06/2022 12:43:40 pneumococcal polysaccharide PPV23 3 completed AILYNBA NEUSCHWANDER null, [facility] 09/06/2022 12:43:40 Tdap 6 completed TREBA NEUROXANNWANDER null, [facility] 09/06/2022 12:43:40 varicella 3 completed TREBA NEUSCHWANDER null, [facility] 09/06/2022 12:43:40 Hep B, unspecified formulation 2 completed TREBA NEUSCHWANDER null, [facility] 09/06/2022 12:43:40 Hep B, unspecified formulation 2 completed TREBA NEUSCHWANDER null, [facility] 09/06/2022 12:43:40 Hep B, adolescent or pediatric 2 completed TREBA NEUSCHWANDER null, [facility] 09/06/2022 12:43:40 Hib (HbOC) 2 completed TREBA NEUSCHWANDER null, [facility] 09/06/2022 12:43:40 Hib (PRP-T) 3 completed TREBA NEUSCHWANDER null, [facility] 09/06/2022 12:43:40 Hib (PRP-T) 2 completed TREBA NEUSCHWANDER null, [facility] 09/06/2022 12:43:40 Hib (PRP-T) 2 completed TREBA NEUSCHWANDER null, [facility] 09/06/2022 12:43:40 meningococcal MCV4P 6 completed TREBA NEUSCHWANDER null, [facility] 09/06/2022 12:43:40 DTaP 3 completed TREBA NEUSCHWANDER null, [facility] 09/06/2022 12:43:40 DTaP 2 completed TREBA NEUSCHWANDER null, [facility] 09/06/2022 12:43:40 DTaP 6 completed TREBA NEUSCHWANDER null, [facility] 09/06/2022 12:43:40 DTaP 2 completed TREBA NEUSCHWANDER null, [facility] 09/06/2022 12:43:40 DTaP 2 completed TREBA NEUSCHWANDER null, [facility] 09/06/2022 12:43:40 Past Encounters Encounter ID Performer Location Encounter Start Date Encounter Closed Date Diagnosis/Indication Diagnosis SNOMED-CT Code Diagnosis ICD10 Code Diagnosis IMO Codes Diagnosis Note [id number] Sherlyn Cervantes MD [facility] ([facility]) [address] [place] [address] [phone] [id number] 12/31/2024 11:33:10 12/31/2024 13:02:50 34494338 Z34.90 - Confirm dating with a follow-up ultrasound - Regular visits scheduled every four weeks - Perform routine labs and optional genetic screening after 10 weeks History of hypertension 026163114 Z86.79 - Monitor and manage blood pressure with frequent checks - Discussed maintainin g a home blood pressure monitor for early detection Gastroesop hageal reflux disease 193193642 K21.9 - Discuss medication s like Pepcid for safe use - Encourage dietary changes to manage symptoms before medication use History of calculus of kidney 312241914 Z87.442 - Inform about symptoms and seek care if they arise [id number] Sherlyn Cervantes MD [facility] ([facility]) [address] [place] [address] [phone] 01/07/2025 12:43:31 01/07/2025 14:53:33 Normal in multigravida 6218717405 66391 Z34.80 50438001 Health Concerns Section Related Observation LastModified by Organization Detai ls LastModified Time None Recorded Concern Status LastModified by Organization Details LastModified Time None Recorded Payers Encounter Date Sequence Insurance Name Policy Number Policy Torres Covered Member ID Torres Member ID Guarantor Name 01/07/2025 1 [employer] [place] ([place]PLACEMENT - HMO) [id number] Diana Gongora [id number] Diana N Rolan OBGyn Episode Ob Episode Information Episode Created Date Number of Fetuses Patient Bloodtype Patient rh Status Prepregnancy Weight lbs Domestic Partner Domestic Partner Phone Father Name 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 Status 01/01/20 25 1 B Positive Arpan Flynn OPEN Fetus Data First Name Last Name Admitted to NICU Weight (g) Sex Living Outcome Pediatric Complications Fetus ID Race Codes Race Delivery Type [id number] Abe Calculation Initial Abe Date Initial Exam [...] Type Weight in lbs Pre/Post Dialysis Refused 269.540165264499 BP Diastolic BP Location Tested BP Systolic [...] Weight in lbs Pre/Post Dialysis Refused Weight 274.636576380918 BP Diastolic BP Location Tested BP Systolic BP Type 90 124 Fetus Heart Rate Present Fetus Movement Comments Menstrual History Last Menstrual Date Menses Monthly On Bcp Conception Prior Menses Frequency Hcg Plus Date Menarche Onset Age true Genetic Screening And Infection History Question Response Note Patient's Age Will Be 35 Years Or Older At Estim ated Date of Delivery false Thalassemia (German, Italian, Mediterranean, Or Background): MCV < 80 false Neural Tube Defect (Meningomyelocele, Spina Bifi da, Or Anencephaly) false Congenital Heart Defect false Down Syndrome false Dominic-Sachs (eg, Oriental Orthodox, Cajun, Wallisian-Pender) f alse Jay Disease false Sickle Cell Disease Or Trait () false Hemophilia Or Other Blood Disorders false Muscular Dystrophy false Cystic Fibrosis false [place]'s Chorea false Intellectual Disability/Autism false If Yes, [...] Domestic Partner Domestic Partner Phone Father Name 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 Problem Name Start Date End Date Resolution Snomed Code Not e Normal in multigravida 09/21/2022 [id number] Abe Calculation Initial Abe Date Initial Exam [...] Ultra Sound Latest Days Gestation 0 0 Pre-gloria Flowsheet Flowsheet Date 06/29/2022 Odonnell Score Blood Edema Fundus Height Fundus Units Glucose Ketones Leukocytes Nitrite Labor Signs Protein Cervic Dilation Cervic Effacement Cervic Station none Type Weight in lbs Pre/Post Dialysis Refused Weight 241.396596533447 BP Diastolic BP Location Tested BP Systolic [...] ation, placenta posterior, grade 0, normal AFV, [id number]-30/23/23, EGA-19.3, RVOT and LVOT not seen, anatomic [...] Weight in lbs Pre/Post Dialysis Refused Weight 249.733354345378 BP Diastolic BP Location Tested BP Systolic [...] Weight in lbs Pre/Post Dialysis Refused Weight 258.054432164899 BP Diastolic BP Location Tested BP Systolic [...] Weight in lbs Pre/Post Dialysis Refused Weight 260.680486867873 BP Diastolic BP Location Tested BP Systolic [...] Weight in lbs Pre/Post Dialysis Refused Weight 268.288283609379 BP Diastolic BP Location Tested BP Systolic [...] Weight in lbs Pre/Post Dialysis Refused Weight 268.729689760259 BP Diastolic BP Location Tested BP Systolic [...] Weight in lbs Pre/Post Dialysis Refused Weight 272.045912685944 BP Diastolic BP Location Tested BP Systolic [...] Weight in lbs Pre/Post Dialysis Refused Weight 276.861469565591 BP Diastolic BP Location Tested BP Systolic [...] Weight in lbs Pre/Post Dialysis Refused Weight 279.772477258712 BP Diastolic BP Location Tested BP Systolic [...] Weight in lbs Pre/Post Dialysis Refused Weight 282.899030406621 BP Diastolic BP Location Tested BP Systolic [...] Weight in lbs Pre/Post Dialysis Refused Weight 284.321114882964 BP Diastolic BP Location Tested BP Systolic [...] Weight in lbs Pre/Post Dialysis Refused Weight 269.012616240795 BP Diastolic BP Location Tested BP Systolic BP Type 82 118 Fetus Heart Rate Present Fetus Movement Comments Menstrual History Last Menstrual Date Menses Monthly On Bcp Conception Prior Menses Frequency Hcg Plus Date Menarche Onset Age Genetic Screening And Infection History Question Response Note Patient's Age Will Be 35 Yea rs Or Older At Estimated Date of Delivery false Thalassemia (German, Italian, Mediterranean, Or Background): MCV < 80 false Neural Tube Defect (Meningom yelocele, Spina Bifida, Or Anencephaly) false Congenital Heart Defect false Down Syndrome false Dominic-Sachs (eg, Oriental Orthodox, Cajun, Wallisian-Pender) f alse Jay Disease false Sickle Cell [...] Post Complications Tubal Sterilization Discharge Date Comments 10/12/202 5 142.4 Discharge Information Feeding Method Contraceptive Method Maternal HG B and HCT Levels
--- OUTSIDE RECORDS SUMMARY | 2025-02-25 01:12 | XMS_ITS | Clinical Summary ---
Author Organization [facility] Address [address] [facility] Attn: [place] [address] Care Team Providers Care Tableman Name Role Phone Brittanie Aquino [facility] Primary Care Provider [phone] Allergies No known active allergies Medications NIFEdipine (PROCARDIA XL) 90 mg Extended Release 24 hour tablet Take 90 mg by mouth daily. Active vits15/iron/fol ic/dss ( VIT 16-LFZA-RZGIV-D SS ORAL) Take by mouth. Active HYDROcodone-aba [...] hours as needed for Pain. 02/24/2017 Active Encounters Date Type Department Care Team Description 02/19/2025 External Device Data [facility]STRACTION Provider, Abstract 02/05/2025 External Device Data [facility]CTION Provider, Abstract 01/02/2025 External Device Data [facility] Provider, Abstract 01/01/2025 External Device Data [facility] Provider, Abstract 01/01/2025 External Device Data [facility]STRACTION Provider, Abstract 12/27/[address] [address] Provider, Abstract urology referral appointment 11/30/2024 Abstract [facility] [address] [place] [address] Provider, Abstract from Last 3 Months Social History Tobacco Use Types Packs/Day Years Used Date Smoking Tobacco: Never Smokeless Tobacco: Never Alcohol Use Standard Drinks/Week Comments No 0 (1 standard drink = 0.6 oz pur e alcohol) Comments Yes Sex and Gender Information Value Date Recorded Sex Assigned at Not on file Legal Sex Female 10:01 AM [employer] Gender Identity Not on file Sexual Orientation Not on file Last Filed Vital Signs Vital Sign Reading Time Taken Comments Blood Pressure 160/91 03/20/2021 2:00 PM [employer] Pulse 109 03/20/2021 2:00 PM [employer] Temperature 36.4 C (97.5 F) 03/20/2021 11:38 AM [employer] Respiratory Rate 18 03/20/2021 11:3 8 AM [employer] Oxygen Saturation 99% 03/20/2021 2:00 PM [employer] Inhaled Oxygen Concentration - - Weight 128.3 kg (282 lb 12.8 oz) 2021 11:38 AM [employer] Height 162.6 cm (5' 4 ) 03/20/2021 11:3 8 AM [employer] Body Mass Index 48.54 03/20/2021 11:38 AM [employer] Plan of Treatment Health Maintenance Due Date [...] (1 - 1-dose 75+ series) [address] [place] [address] [facility] Care Teams Tableman Relationship Specialty Start Date End Date Brittanie Aquino FNP [address] [place] [phone] PCP - General NURSE PRACTITIONER 11/29/14
[2025-02-25 01:25] VITALS: BP 136/86; PULSE 118; RESP 20; TEMP 36.9; O2SAT 100; BMI 46.0
[2025-02-25 01:35] VITALS: BP 136/86; PULSE 118; RESP 20; TEMP 36.9; O2SAT 100
[2025-02-25 02:03] LABS: Hematocrit 44.3 % (36-47); Hemoglobin 14.00 g/dL (11.27-16.99); Mean Corpuscular HGB Conc 31.6 g/dL (30-55); Mean Corpuscular Hemoglobin 24.6 pg (27-33); Mean Corpuscular Volume 77.9 fl (85-98); Nucleated Red Blood Cells % 0 %; Platelet Count 172 10^3/cmm (157-399); Red Blood Count 5.69 10^6/uL (3.85-5.65); White Blood Count 7.60 10^3/uL (3.29-11.43)
[2025-02-25 02:15] LABS: Glucose Urine UA Negative (Normal); Nitrate Urine Negative (Negative); Specific Gravity, Urine 1.017 (1.005-1.030)
[2025-02-25 02:20] LABS: Alanine Aminotransferase 22 U/L (0-33); Albumin Level 3.7 g/dL (3.5-5.2); Alkaline Phosphatase 113 U/L (35-105); Anion Gap 16.7 (5-19); Aspartate Amino Transferase 16 U/L (0-32); Blood Urea Nitrogen 6 mg/dL (6-20); Calcium 8.8 mg/dL (8.5-10.5); Carbon Dioxide 21 mmol/L (22-29); Chloride 101 mmol/L (98-107); Globulin 3.2 g/dL (1.3-4.6); Glucose 87 mg/dL (65-115); Lipase 23 U/L (13-60); Magnesium 1.9 mg/dL (1.7-2.3); Osmolality Calculated 277 mOsm/kg (285-295); Potassium 3.7 mmol/L (3.5-5.1); Sodium 135 mmol/L (136-145); Total Protein 6.9 g/dL (6.6-8.7)
[2025-02-25 02:20] LABS: Add Urine Microscopic? YES
[2025-02-25 02:24] LABS: Slide Review Slide Review Perform
--- NOTE | 2025-02-25 02:35 | W.ED.ABDPA2 ---
HPI - Abdominal Pain General: Chief Complaint: Abdominal Pain Stated Complaint: 13 wks preg cramping Time Seen by Provider: 02/25/25 01:31 History of Present Illness: Patient is a 24F at approx 13w who presents with lower abdominal and back pain that began two to three days ago, described as a heavy sensation and weakness, making it difficult to stand or walk. She also experienced a sudden byrne of sensation to her head, with headache and inability to focus. She reports mild lower abdominal cramping but denies vaginal bleeding. She has had some nausea and vomiting after eating recently, but no current nausea. She notes her blood pressure was previously elevated at her last OB visit and was advised to monitor it. She is currently in her second trimester and has had a prior ultrasound confirming intrauterine . No other significant medical problems reported. She was induced for her first at 37 weeks, had no issues and a full-term vaginal delivery and her second . She takes no daily medications. Related Data Previous Rx's ?Medication ?Instructions ?Recorded citalopram 20 mg tablet (Celexa) 20 mg PO DAILY #30 tabs 11/30/23 semaglutide 0.25 mg or 0.5 mg (2 0.25 mg (0.368 mL) SUBCUT .once 10/01/24 mg/3 mL) subcutaneous pen injector weekly #3 mL (Ozempic) ondansetron 4 mg disintegrating 4 mg PO Q8H PRN nausea and 11/24/24 tablet vomiting #10 tabs oxycodone-acetaminophen 5 mg-325 1 tab PO Q8H PRN pain #10 tabs 11/24/24 mg tablet (Percocet) cephalexin 500 mg tablet 500 mg PO Q6H #20 tabs 02/25/25 ondansetron 4 mg disintegrating 4 mg PO TID PRN nausea and 02/25/25 tablet vomiting 5 days #14 tabs Allergies Allergy/AdvReac Type Severity Reaction Status Date / Time No Known Allergies Allergy Verified 11/23/24 23:40 Review of Systems General: Reports: 10 or more systems reviewed and unremarkable except in HPI and below PFSH ED PFSH: Surgical History Hx of tympanostomy tubes Family History Grandfather Diabetes Grandmother Diabetes Father Hypertension Social History Smoking and tobacco/nicotine status: never used tobacco/nicotine Alcohol intake: never Substance/Drug Use: never Adopted: No Lives independently: Yes Household members: significant other Housing: House Marital status: Single Number of children: 2 Highest education level completed: 9th Grade service: No Current occupational status: unemployed 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 Current gender identity: Female Female Reproductive History: Para: 0 Physical Exam Narrative: EXAM NARRATIVE: Patient well-appearing, afebrile, tachycardic in 110s, normotensive, nontoxic, no acute distress. Abdomen soft nontender, bowel sounds intact, no CVA tenderness. Breathing comfortably on room air, saturating well, able to speak in full sentences. Sinus tachycardia, normotensive, no leg swelling. GCS 15, spontaneously and symmetrically moving all 4 extremities Course Vital Signs: Vital signs: Vital Signs Temperature 98.4 F 02/25/25 01:35 Pulse Rate 98 02/25/25 04:04 Respiratory Rate 20 H 02/25/25 01:35 Blood Pressure 136/86 02/25/25 01:35 Pulse Oximetry 100 02/25/25 04:04 Oxygen Delivery Me thod Room Air 02/25/25 01:35 MDM - Abdominal Pain Medical Decision Making -ddx: URI, viral syndrome, gastroenteritis, GERD, UTI, dehydration, electrolyte abnormality, considered but less likely: Miscarriage - Patient overall well-appearing with a few days of feeling fatigued, vaguely systemic infectious symptoms, her worst symptom is is having a generalized headache, will evaluate with basic and infectious labs, treat symptomatically with Tylenol, fluids and reassess - Patient with only mild relief after above medications, labs overall reassuring except seemingly has a mild cystitis, will treat this with Rocephin especially because given her weak UA, she was given Compazine and Benadryl with complete resolution of her headache and was able to rest comfortably on my urinary evaluation and so she was deemed stable for discharge on a 5-day course of Keflex, Zofran and continue with her OB follow-up appointment tomorrow, strict return precautions given. Lab Data 02/25/25 01:53 02/25/25 01:53 Labs/Radiology: Laboratory Results WBC 7.60 10^3/uL (3.29-11.43) 02/25/25 01:53 RBC 5.69 10^6/uL (3.85-5.65) H 02/25/25 01:53 Hgb 14.00 g/dL (11.27-16.99) 02/25/25 01:53 Hct 44.3 % (36-47) 02/25/25 01:53 MCV 77.9 fl (85-98) L 02/25/25 01:53 MCH 24.6 pg (27-33) L 02/25/25 01:53 MCHC 31.6 g/dL (30-55) 02/25/25 01:53 RDW 14.6 % (12.1-15.1) 02/25/25 01:53 Plt Count 172 10^3/cmm (157-399) 02/25/25 01:53 MPV 10.8 fL (7.4-10.4) H 02/25/25 01:53 Neut % (Auto) 85.5 % 02/25/25 01:53 Lymph % (Auto) 9.3 % 02/25/25 01:53 [place] % (Auto) 4.3 % 02/25/25 01:53 Eos % (Auto) 0.5 % 02/25/25 01:53 Baso % (Auto) 0.1 % 02/25/25 01:53 Neut # (Auto) 6.49 10^3/uL (1.8-7.7) 02/25/25 01:53 Lymph # (Auto) 0.7 10^3/uL (0.8-4.8) L 02/25/25 01:53 [place] # (Auto) 0.3 10^3/uL (0.2-0.9) 02/25/25 01:53 Eos # (Auto) 0.0 10^3/uL (0.0-0.8) 02/25/25 01:53 Baso # (Auto) 0.0 10^3/uL (0.0-0.1) 02/25/25 01:53 Nucleated RBC % (auto) 0 % 02/25/25 01:53 Nucleated RBCs # 0.0 /100WBC 02/25/25 01:53 Sodium 135 mmol/L (136-145) L 02/25/25 01:53 Potassium 3.7 mmol/L (3.5-5.1) 02/25/25 01:53 Chloride 101 mmol/L (98-107) 02/25/25 01:53 Carbon Dioxide 21 mmol/L (22-29) L 02/25/25 01:53 Anion Gap 16.7 (5-19) 02/25/25 01:53 BUN 6 mg/dL (6-20) 02/25/25 01:53 Creatinine 0.4 mg/dL (0.5-0.9) L 02/25/25 01:53 GFR Calculation 197.8 mL/min (90-130) H 02/25/25 01:53 Glucose 87 mg/dL (65-115) 02/25/25 01:53 Calculated Osmolality 277 mOsm/kg (285-295) L 02/25/25 01:53 Calcium 8.8 mg/dL (8.5-10.5) 02/25/25 01:53 Phosphorus 3.6 mg/dL (2.5-4.5) 02/25/25 01:53 Magnesium 1.9 mg/dL (1.7-2.3) 02/25/25 01:53 Total Bilirubin 0.2 mg/dL (0.15-1.2) 02/25/25 01:53 AST 16 U/L (0-32) 02/25/25 01:53 ALT 22 U/L (0-33) 02/25/25 01:53 Alkaline Phosphatase 113 U/L (35-105) H 02/25/25 01:53 C-Reactive Protein 25.4 mg/L (0.0-4.9) H 02/25/25 01:53 Total Protein 6.9 g/dL (6.6-8.7) 02/25/25 01:53 Albumin 3.7 g/dL (3.5-5.2) 02/25/25 01:53 Globulin 3.2 g/dL (1.3-4.6) 02/25/25 01:53 Lipase 23 U/L (13-60) 02/25/25 01:53 Urine Color Yellow (Yellow) 02/25/25 02:03 Urine Appearance Cloudy (CLEAR) A 02/25/25 02:03 Urine pH 7.5 (5-7) 02/25/25 02:03 Ur Specific Peterson 1.017 (1.005-1.030) 02/25/25 02:03 Urine Protein Negative (Negative) 02/25/25 02:03 Urine Glucose (UA) Negative (Normal) 02/25/25 02:03 Urine Ketones Negative (Negative) 02/25/25 02:03 Urine Blood Negative (Negative) 02/25/25 02:03 Urine Nitrate Negative (Negative) 02/25/25 02:03 Urine Bilirubin Negative (Negative) 02/25/25 02:03 Urine Urobilinogen 1.0 mg/dL (Negative) 02/25/25 02:03 Ur Leukocyte Esterase Negative (Negative) 02/25/25 02:03 Urine RBC 3-5 /hpf (0-2) 02/25/25 02:03 Urine WBC 0-5 /hpf (0-5) 02/25/25 02:03 Ur Squamous Epith Cells 6-10 /hpf (0-5) 02/25/25 02:03 Amorphous Sediment Not Reportable 02/25/25 02:03 Urine Bacteria 2+ /hpf (NONE) H 02/25/25 02:03 Hyaline Casts 0.40 /lpf 02/25/25 02:03 No radiology studies performed this visit Discharge Plan Discharge Patient Disposition: Home Clinical Impression: UTI (urinary tract infection), Dehydration Condition: Stable Prescriptions: New cephalexin 500 mg tablet 500 mg PO Q6H Qty: 20 0RF ondansetron 4 mg tablet,disintegrating 4 mg PO TID PRN (Reason: nausea and vomiting) 5 Days Qty: 14 0RF No Action citalopram [Celexa] 20 mg tablet 20 mg PO DAILY Qty: 30 5RF Ozempic 0.25 mg or 0.5 mg (2 mg/3 mL) pen injector 0.25 mg SUBCUT .once weekly Qty: 3 0RF oxycodone-acetaminophen [Percocet] 5-325 mg tablet 1 tab PO Q8H PRN (Reason: pain) Qty: 10 0RF ondansetron 4 mg tablet,disintegrating 4 mg PO Q8H PRN (Reason: nausea and vomiting) Qty: 10 0RF Discharge Orders: Discharge ED (Routine); Ordered 02/25/25 Ordered By: Elvin Jimenez Referrals: Nikki Lyon FNP-C [Primary Care Provider, [facility]] Discharge Diet: Usual diet Discharge Activity: Resume usual activity Patient Instructions: Abdominal Pain (ED), Opioid Safety, Pain Management, Patient Portal & Maribel Instructions Activity Restrictions/Additional Instructions: You were seen for your headache and abdominal pain, you were evaluated with labs and a urine test which ultimately found you to have a mild amount of dehydration and a urinary tract infection. For treatment of this, use the Keflex 500 mg every 6 hours for a total of 5 days. Injury stay hydrated. Use the Zofran, 4 mg every 8 hours as needed. Continue to follow-up with your OB as originally scheduled. Return to the ED with continued vomiting, inability to eat or drink, severe abdominal pain, heavy vaginal bleeding, episodes of passing out, any other emergent concerns. Print Language: Korean Coding Level of Care Code ED Manager Law for Isaiah Londono
[2025-02-25] MEDS: cefTRIAXone 1,000 mg SDV 1000 MG IVP (03:03)
[2025-02-25] MEDS: diphenhydrAMINE 50 mg/mL SDV 1mL 25 MG IVP (03:03)
[2025-02-25 04:04] VITALS: PULSE 98; O2SAT 100
== END 2025-02-25 04:05 | disposition home or self-care (01) ==
PROVIDERS: Emergency Provider Student in an Organized Health Care Education/Training Program; PCP Nurse Practitioner Family
DX: O23.41 Unspecified infection of urinary tract in pregnancy, first trimester (principal); N39.0 Urinary tract infection, site not specified; Z3A.13 13 weeks gestation of pregnancy; O26.891 Other specified pregnancy related conditions, first trimester; E86.0 Dehydration
CPT/HCPCS: 80053; 81001; 83690; 83735; 84100; 85025; 86140; 96361; 96374; 96375; 99284; J0696; J0780; J1200; J7030; J9999